=== PATIENT | female | born 1965 | race Caucasian/White ===

== ENCOUNTER 2017-03-29 00:57 | Inpatient (IN) ==
[2017-03-29 01:40] LABS: Basophils # 0.1 K/mcL (0.0-0.2); Basophils % 0.4 %; Eosinophils # 0.1 K/mcL (0.0-0.6); Eosinophils % 0.9 %; Hematocrit 44.7 % (35.3-44.9); Hemoglobin 14.6 g/dL (11.5-15.4); Immature Granulocytes % 0.4 % (0-4); Lymphocytes # 2.6 K/mcL (0.6-4.6); Lymphocytes % 19.3 %; Mean Corpuscular HGB Conc 32.7 g/dL (31.6-35.5); Mean Corpuscular Hemoglobin 27.9 pg (28.0-33.3); Mean Corpuscular Volume 85.3 fL (83.0-100.0); Mean Platelet Volume 10.4 fL (9.4-12.4); Monocytes # 0.9 K/mcL (0.0-1.3); Monocytes % 6.8 %; Neutrophils # 9.7 K/mcL (1.6-8.9); Platelet Count 319 K/mcL (140-400); Red Blood Count 5.24 M/mcL (3.82-4.97); Red Cell Distribution Width 13.2 % (11.5-14.5); Segmented Neutrophils % 72.2 %
[2017-03-29 01:53] LABS: Bilirubin,Urine Negative (Negative); Blood,Urine Negative (Negative); Clarity,Urine Clear (Clear); Color,Urine Yellow (Yellow); Glucose,Urine (UA) Normal (Normal); Ketones,Urine Negative (Negative); Leukocyte Esterase,Urine Negative (Negative); Nitrite,Urine Negative (Negative); Protein,Urine Trace mg/dL (Neg-Trace); Specific Gravity,Urine 1.022 (1.010-1.025); Urobilinogen,Urine Normal (Normal)
--- NOTE | 2017-03-29 01:55 | Emergency Department Note ---
Disposition Clinical Impression: Partial small bowel obstruction Abdominal pain Qualifiers: Abdominal location: left upper quadrant Qualified Code(s): R10.12 - Left upper quadrant pain Disposition: Admitted As Inpatient Condition: Fair Time of Disposition: 06:32 Abdominal Pain HPI - General Chief Complaint: ED Abdominal Pain Stated Complaint: LUQ Pain Time Seen by Provider: 03/29/17 01:44 Source: patient Nursing Notes Reviewed: Yes Vital Signs Reviewed: Yes - History of Present Illness HPI Narrative: 51-year-old female complains of acute onset of severe abdominal pain left upper quadrant without radiation. Patient also complains of left-sided chest pain as well with nausea and vomiting. Patient states that the pain started 3 hours ago. She has never had pain like this before. Pain is constant at 10/10. Patient denies prior [place], patient admits to hypertension, and diabetes. Surgical history for hysterectomy and . Pain Scale: 10 - Related Data Previous Rx's Medication Instructions Recorded Azithromycin [Zithromax] 250 mg PO DAILY #6 tablet 02/07/16 Azithromycin [Azithromycin 6-Tab 250 mg PO PER PKG DI #6 tab 02/02/17 Pack] GuaiFENesin/Dextromethorphan 5 ml PO Q6HR PRN #120 syrup 02/02/17 [Robitussin/DM] Loratadine [Allergy Relief] 10 mg PO DAILY #30 tablet 02/02/17 Allergies Allergy/AdvReac Type Severity Reaction Status Date / Time Penicillins [PCN] Allergy Difficulty Verified 02/18/15 10:56 Breathing All systems ED: reviewed and negative except as stated. Review of Systems: As Per HPI Constitutional: Denies: fever Cardiovascular: Reports: chest pain Gastrointestinal: Reports: abdominal pain, nausea, vomiting. Denies: diarrhea Genitourinary: Denies: urgency Musculoskeletal: Denies: back pain Abdominal Pain PMH - Past Medical History Medical history: Reports: diabetes, hypertension Female Surgical History: Reports: , hysterectomy, Tonsillectomy - Social History Smoking status: Never smoker Alcohol use: Reports: none Drug use: Reports: none Physical Exam Vital Signs Temperature 98.9 F 03/29/17 01:07 Pulse Rate 72 03/29/17 01:07 Respiratory Rate 24 03/29/17 01:07 Blood Pressure 184/105 03/29/17 01:07 O2 Sat by Pulse Oximetry 99 03/29/17 01:07 Temperature 98.9 F 03/29/17 01:07 Pulse Rate 72 03/29/17 01:07 Respiratory Rate 24 03/29/17 01:07 Blood Pressure 184/105 03/29/17 01:07 O2 Sat by Pulse Oximetry 99 03/29/17 01:07 Oxygen Delivery Oxygen Delivery Room Air CONSTITUTIONAL: Well-appearing; well-nourished; A&O X 3 in acute distress secondary to pain. Patient is tachypnea And hypertensive at 184/105 HEAD: Normocephalic; atraumatic EYES: PERRL, no scleral icterus NOSE: The nose is normal in appearance without rhinorrhea NECK: No JVD or distended neck veins RESP: Normal chest excursion with respiration; breath sounds clear and equal bilaterally; no wheezes, rhonchi, or rales CARD: Regular rhythm, without murmurs, rub or gallop ABD: Non-distended; tender to palpation in left upper and left lower quadrant, soft, without rigidity, rebound or guarding,no pulsatile mass CHEST: No pain with palpation SKIN: Normal for age and race; warm and dry without diaphoresis ; no apparent lesions EXTREMITIES: Pulses are 2 plus and equal times 4 extremities, no peripheral edema or calf muscle pain - General Limitations: no limitations General appearance: alert, in no apparent distress Course - Reevaluation(s) Reevaluation #1: Urinalysis clean and free of bacteria no UTI. Zofran ordered for nausea and 25 g of fentanyl order for pain. Time: 01:58 Reevaluation #2: Patient received a payments 15 minutes ago but states she has no budge in her pain symptoms. Ordered 50 g of fentanyl IV for her pain. Patient states her nausea is under control. Patient just got back from CT Time: 02:41 Reevaluation #3: CT results show partial small bowel obstruction Time: 03:25 Additional Reevaluation(s): Patient states pain is increased again. 100 g of fentanyl ordered. Nausea still on the control. Patient is updated on the current status of small bowel obstruction and accepts admission - Consultations Consultation #1: Consult made to Dr. Hanna general surgery. He recommends NG tube for bowel decompression. Orders placed for NG tube Time: 04:06 Vital Signs Temperature 98.9 F 03/29/17 01:07 Pulse Rate 72 03/29/17 01:07 Respiratory Rate 24 02/10/18 01:07 Blood Pressure 184/105 03/29/17 01:07 O2 Sat by Pulse Oximetry 99 03/29/17 01:07 Temperature 97.9 F 03/29/17 05:01 Pulse Rate 58 03/29/17 05:01 Respiratory Rate 14 03/29/17 05:01 Blood Pressure 158/88 03/29/17 05:01 O2 Sat by Pulse Oximetry 99 03/29/17 05:01 Oxygen Delivery Oxygen Delivery Room Air Abdominal Pain - MDM Narrative Medical decision making narrative: Acute onset of left upper quadrant abdominal pain and left-sided chest pain with history of diabetes and hypertension concerning for possible ACS/WA, pneumonia, kidney stones, pancreatitis, bowel obstruction, pyelonephritis, diverticulitis Patient's lab work was remarkable only for an elevation of her white count at 13.5. CT scan of abdomen and pelvis shows partial small bowel obstruction in the mid abdomen with distal loops decompressed per radiology. Gen. surgery was consulted. Dr. Hanna recommended NG tube. We tried to place NG tube but patient refused. Patient was advised of the necessity of having NG tube to decompress her bowel. She is also told that she is at risk for full obstruction and rupture of her bowel. Patient still refuses NG tube. Patient is admitted to medicine for further evaluation. - Medical Records Medical records reviewed: Yes I reviewed the patient's medical records. - Lab Data Lab results reviewed: Yes I reviewed the patient's lab results. Lab results narrative: Short CBC 03/29/17 Range/Units 01:34 WBC 13.5 H (4.3-11.1) K/mcL Hgb 14.6 (11.5-15.4) g/dL Hct 44.7 (35.3-44.9) % Plt Count 319 (140-400) K/mcL Neutrophils # 9.7 H (1.6-8.9) K/mcL BMP 03/29/17 Range/Units 01:34 Sodium 135 L (136-145) mEq/L Potassium 3.9 (3.5-5.1) mEq/L Chloride 102 (98-107) mEq/L Carbon Dioxide 25 (23-29) mEq/L BUN 16 (6-20) mg/dL Creatinine 0.78 (0.60-1.20) mg/dL Glucose 121 H (70-105) mg/dL Calcium 9.1 (8.6-10.3) mg/dL Cardiac Enzymes 03/29/17 Range/Units 01:38 Troponin I < 0.03 (< 0.04) ng/mL Liver Function 03/29/17 Range/Units 01:34 Total Bilirubin 0.3 (0.3-1.0) mg/dL Direct Bilirubin 0.1 (0.0-0.2) mg/dL AST 14 (13-39) Units/L ALT 12 (7-52) Units/L Alkaline Phosphatase 106 H (34-104) Units/L Albumin 4.0 (3.5-5.7) g/dL Urine 03/29/17 Range/Units 01:48 Urine Color Yellow (Yellow) Urine Clarity Clear (Clear) Urine pH 7.0 (5.0-8.0) pH Units Ur Specific Melvin 1.022 (1.010-1.025) Urine Protein Trace (Neg-Trace) mg/dL Urine Glucose (UA) Normal (Normal) mg/dL Result diagrams: 03/29/17 01:34 03/29/17 01:34 Lab Results 03/29/17 03/29/17 03/29/17 Range/Units 01:34 01:34 01:34 WBC 13.5 H (4.3-11.1) K/mcL RBC 5.24 H (3.82-4.97) M/mcL Hgb 14.6 (11.5-15.4) g/dL Hct 44.7 (35.3-44.9) % MCV 85.3 (83.0-100.0) fL MCH 27.9 L (28.0-33.3) pg MCHC 32.7 (31.6-35.5) g/dL RDW 13.2 (11.5-14.5) % Plt Count 319 (140-400) K/mcL MPV 10.4 (9.4-12.4) fL Immature Gran % 0.4 (0-4) % Seg Neutrophils % 72.2 % Lymphocytes % 19.3 % Monocytes % 6.8 % Eosinophils % 0.9 % Basophils % 0.4 % Neutrophils # 9.7 H (1.6-8.9) K/mcL Lymphocytes # 2.6 (0.6-4.6) K/mcL Monocytes # 0.9 (0.0-1.3) K/mcL Eosinophils # 0.1 (0.0-0.6) K/mcL Basophils # 0.1 (0.0-0.2) K/mcL Sodium 135 L (136-145) mEq/L Potassium 3.9 (3.5-5.1) mEq/L Chloride 102 (98-107) mEq/L Carbon Dioxide 25 (23-29) mEq/L BUN 16 (6-20) mg/dL Creatinine 0.78 (0.60-1.20) mg/dL Est GFR ( Amer) > 60 (> 60) Est GFR (Non-Af Amer) > 60 (> 60) BUN/Creatinine Ratio 21 (6-26) Glucose 121 H (70-105) mg/dL Calculated Osmolality 282 (280-300) Calcium 9.1 (8.6-10.3) mg/dL Total Bilirubin 0.3 (0.3-1.0) mg/dL Direct Bilirubin 0.1 (0.0-0.2) mg/dL Indirect Bilirubin 0.2 (0.0-1.2) mg/dL AST 14 (13-39) Units/L ALT 12 (7-52) Units/L Alkaline Phosphatase 106 H (34-104) Units/L Troponin I (< 0.04) ng/mL Serum Total Protein 6.8 (6.4-8.9) g/dL Albumin 4.0 (3.5-5.7) g/dL Globulin 2.8 (2.4-3.5) g/dL Albumin/Globulin Ratio 1.4 (1.1-2.2) Amylase 45 (29-103) Units/L Lipase 48 (11-82) Units/L Urine Color (Yellow) Urine Clarity (Clear) Urine pH (5.0-8.0) pH Units Ur Specific Melvin (1.010-1.025) Urine Protein (Neg-Trace) mg/dL Urine Glucose (UA) (Normal) mg/dL Urine Ketones (Negative) mg/dL Urine Blood (Negative) Urine Nitrite (Negative) Urine Bilirubin (Negative) Urine Urobilinogen (Normal) mg/dL Ur Leukocyte Esterase (Negative) Ur Culture Indicated? (NO) 03/29/17 03/29/17 Range/Units 01:38 01:48 WBC (4.3-11.1) K/mcL RBC (3.82-4.97) M/mcL Hgb (11.5-15.4) g/dL Hct (35.3-44.9) % MCV (83.0-100.0) fL MCH (28.0-33.3) pg MCHC (31.6-35.5) g/dL RDW (11.5-14.5) % Plt Count (140-400) K/mcL MPV (9.4-12.4) fL Immature Gran % (0-4) % Seg Neutrophils % % Lymphocytes % % Monocytes % % Eosinophils % % Basophils % % Neutrophils # (1.6-8.9) K/mcL Lymphocytes # (0.6-4.6) K/mcL Monocytes # (0.0-1.3) K/mcL Eosinophils # (0.0-0.6) K/mcL Basophils # (0.0-0.2) K/mcL Sodium (136-145) mEq/L Potassium (3.5-5.1) mEq/L Chloride (98-107) mEq/L Carbon Dioxide (23-29) mEq/L BUN (6-20) mg/dL Creatinine (0.60-1.20) mg/dL Est GFR ( Amer) (> 60) Est GFR (Non-Af Amer) (> 60) BUN/Creatinine Ratio (6-26) Glucose (70-105) mg/dL Calculated Osmolality (280-300) Calcium (8.6-10.3) mg/dL Total Bilirubin (0.3-1.0) mg/dL Direct Bilirubin (0.0-0.2) mg/dL Indirect Bilirubin (0.0-1.2) mg/dL AST (13-39) Units/L ALT (7-52) Units/L Alkaline Phosphatase (34-104) Units/L Troponin I < 0.03 (< 0.04) ng/mL Serum Total Protein (6.4-8.9) g/dL Albumin (3.5-5.7) g/dL Globulin (2.4-3.5) g/dL Albumin/Globulin Ratio (1.1-2.2) Amylase (29-103) Units/L Lipase (11-82) Units/L Urine Color Yellow (Yellow) Urine Clarity Clear (Clear) Urine pH 7.0 (5.0-8.0) pH Units Ur Specific Melvin 1.022 (1.010-1.025) Urine Protein Trace (Neg-Trace) mg/dL Urine Glucose (UA) Normal (Normal) mg/dL Urine Ketones Negative (Negative) mg/dL Urine Blood Negative (Negative) Urine Nitrite Negative (Negative) Urine Bilirubin Negative (Negative) Urine Urobilinogen Normal (Normal) mg/dL Ur Leukocyte Esterase Negative (Negative) Ur Culture Indicated? NO (NO) - Radiology Data Radiology results reviewed: Yes I reviewed the patient's radiology results. Chest X-Ray 03/29/17 01:50 IMPRESSION: Low lung volume study without acute process. No significant change. D/ / Manolo Benedict MD / Manolo Benedict MD Interpreting Provider: Manolo Benedict MD Abdomen/Pelvis CT 03/29/17 02:18 IMPRESSION: Partial small bowel obstruction with transition in the mid abdomen and decompressed loops distally. D/ / Eliud Thompson MD / Eliud Thompson MD Interpreting Provider: Eliud Thompson MD - EKG Data EKG attestation: Yes I reviewed and interpreted this EKG. EKG results narrative: ABG taken 2017 and 0235 hours shows sinus bradycardia at a rate of [address] elevations or depressions leads, QRS widening or QT prolongation. Previous EKG for comparison dated 04/05/2012 shows a sinus rhythm at a rate of 72 bpm without any signs of ischemia. Attestation Statement - Attestation Attestation: I examined this patient and my medical decision-making was reviewed with the Resident Physician. I agree with the documented findings, disposition and treatment plan as described except to the extent set forth below. Patient presents to the ED with a chief complaint of abdominal pain. Onset just a few hours ago. Patient states she had a normal bowel movement this afternoon. Now she is having abdominal pain and nausea. No fever. On examination she has diffuse abdominal tenderness with guarding. Appears well- hydrated. Plan. Abdominal CT shows a partial small bowel obstruction. She is admitted to medicine with surgical consult. Heart Score - Score History: Slightly Suspicious Age: 45-65 Risk Factors: 1-2 risk factors Troponin: Less than normal limit
[2017-03-29] MEDS ORDERED: Ondansetron 4 MG/2 ML VIAL IVP PRN (01:58)
[2017-03-29] MEDS ORDERED: *HR* FentaNYL (PF) 100 MCG/2 ML VIAL IVP ONE ×5 (01:58→14:54)
[2017-03-29] MEDS ORDERED: 0.9 % Sodium Chloride 1,000 ML IVC ONE (01:58)
[2017-03-29 02:01] LABS: Alanine Aminotransferase 12 Units/L (7-52); Albumin/Globulin Ratio 1.4 (1.1-2.2); Alkaline Phosphatase 106 Units/L (34-104); Aspartate Amino Transferase 14 Units/L (13-39); BUN/Creatinine Ratio 21 (6-26); Bilirubin,Direct 0.1 mg/dL (0.0-0.2); Bilirubin,Indirect 0.2 mg/dL (0.0-1.2); Bilirubin,Total 0.3 mg/dL (0.3-1.0); Blood Urea Nitrogen 16 mg/dL (6-20); Calcium 9.1 mg/dL (8.6-10.3); Carbon Dioxide 25 mEq/L (23-29); Chloride 102 mEq/L (98-107); Globulin 2.8 g/dL (2.4-3.5); Glucose 121 mg/dL (70-105); Lipase 48 Units/L (11-82); Osmolality,Calculated 282 (280-300); Potassium 3.9 mEq/L (3.5-5.1); Sodium 135 mEq/L (136-145); Total Protein 6.8 g/dL (6.4-8.9); eGFR For African Americans > 60 (> 60); eGFR For Non-African Americans > 60 (> 60)
[2017-03-29] MEDS ORDERED: *HR* FentaNYL (PF) 100 MCG/2 ML VIAL IVP PRN (05:18)
[2017-03-29] MEDS ORDERED: *HR* Promethazine 25 MG/ML VIAL IVP PRN (05:19)
[2017-03-29] MEDS: D5% in 0.9% NACL 1,000 ML IVC SCH ×3 (05:33→21:42)
[2017-03-29] MEDS: Ondansetron 4 MG/2 ML VIAL IVP PRN ×2 (05:34→10:23)
[2017-03-29] MEDS ORDERED: *HR* OxyCODONE Immed Rel 5 MG TABLET PO PRN (08:18)
[2017-03-29] MEDS ORDERED: traMADol 50 MG TABLET PO PRN (08:18)
[2017-03-29] MEDS ORDERED: Naloxone 0.4 MG/ML INJ IVP PRN ×2 (08:18→14:53)
[2017-03-29] MEDS ORDERED: Acetaminophen 325 MG TABLET PO PRN (08:18)
[2017-03-29] MEDS ORDERED: Chloraseptic Spray 177 ML BOTTLE MM PRN (10:04)
[2017-03-29] MEDS ORDERED: Tetracaine/Benzocaine/Butamben 200MG/SPRAY (100SPY/BOT) MM ONE (10:13)
--- NOTE | 2017-03-29 10:14 | General Surgery Consult Note ---
Date of Encounter: 03/29/17 Time of Encounter: 10:10 History of Present Illness Consult date: 03/29/17 Reason for consult: abdominal pain History of present illness: 51-year-old female presents to the ER with abdominal pain nausea vomiting. She reports her pain was 10 out of 10 upon presentation. She underwent evaluation by CT scan and was identified as small bowel obstruction. She reports no flatus. She does report having 2 C-sections and hysterectomy in the past. She admits to some appetite. However she also admits that her abdominal pain is severe in nature. This abdominal pain started over the last 24 hours. Past Med Surg Social Fam HX - Past Medical History Attestation: Yes The following information was validated with the patient. Medical history: diabetes, hypertension - Past Surgical History Surgical History: , hysterectomy, FEMI/BSO - Social History Smoking Status: Never smoker Smokeless Tobacco Status: No Alcohol use: none Drug use: none Medications and Allergies Lisinopril [Zestril] 5 mg PO DAILY 03/29/17 [History] 3 Allergy/AdvReac Type Severity Reaction Status Date / Time Penicillins [PCN] Allergy Difficulty Verified 02/18/15 10:56 Breathing Review of Systems All systems PM: reviewed and no additional remarkable complaints except as stated All systems PM: A 10-system review of systems was performed and is negative for pertinent findings except as documented above in the HPI. General Surgery Exam Initial Vital Signs Temp Pulse Resp BP Pulse Ox 98.9 F 72 24 184/105 99 03/29/17 01:07 03/29/17 01:07 03/29/17 01:07 03/29/17 01:07 03/29/17 01:07 - General physical appearance well nourished, no distress - Eyes PERRL - ENT normal nares, normal mucosa - Neck trachea midline - Respiratory normal respiratory effort, clear to percussion - Cardiovascular Cardiovascular exam: Present: RRR - Abdomen Abdomen general surgery: Present: soft, non tender - Integumentary Integumentary general surgery: Present: warm and dry, no abnormal pigmentation - Neurologic Present: CN 2-12 grossly intact, normal sensation - Musculoskeletal Present: normal gait - Psychiatric Psychiatric general surgery: Present: A&Ox3, appropriate Exam Initial Vital Signs Temp Pulse Resp BP Pulse Ox 98.9 F 72 24 184/105 99 03/29/17 01:07 03/29/17 01:07 03/29/17 01:07 03/29/17 01:07 03/29/17 01:07 Results - Labs 03/29/17 01:34 03/29/17 01:34 Abnormal lab results WBC 13.5 K/mcL (4.3-11.1) H 03/29/17 01:34 RBC 5.24 M/mcL (3.82-4.97) H 03/29/17 01:34 MCH 27.9 pg (28.0-33.3) L 03/29/17 01:34 Neutrophils # 9.7 K/mcL (1.6-8.9) H 03/29/17 01:34 Sodium 135 mEq/L (136-145) L 03/29/17 01:34 Glucose 121 mg/dL (70-105) H 03/29/17 01:34 Alkaline Phosphatase 106 Units/L (34-104) H 03/29/17 01:34 All other labs normal. Consult Discharge Plan - Plan Referrals: Carlos Bullock MD [Primary Care Provider] -
--- NOTE | 2017-03-29 11:41 | Internal Med History&Physical ---
Date of Encounter: 03/29/17 Time of Encounter: 10:55 Assessment and Plan (1) Partial small bowel obstruction Current visit: Yes Status: Acute She refused NG tube placement despite encouragement by this physician, the surgeon, and ER MD Bowel rest Surgery eval, consult placed and called per ER NPO Dextrose in saline with 125 mL per hour for now. Pain control, patient insists fentanyl wasn't working, that oxycodone is what works She has extreme anxiety, reassured Continue to monitor. (2) Diabetes Current visit: Yes Status: Chronic Sliding scale Qualifiers: Diabetes mellitus type: type 2 Diabetes mellitus complication status: without complication Diabetes mellitus terminal operator insulin use: without terminal operator use Qualified Code(s): E11.9 - Type 2 diabetes mellitus without complications (3) Hypertension Current visit: Yes Status: Chronic Hydralazine prn, hold home meds Qualifiers: Hypertension type: essential hypertension Qualified Code(s): I10 - Essential (primary) hypertension Internal Medicine - H&P: HPI Chief complaint: Abdominal pain. Admitted From: Home Plans for Post Hospital Care: Home History of present illness: Ms. Rojas is a 51 year old female with a history of hypertension and diet- controlled diabetes mellitus. She presented to the emergency room with complaints of left lower quadrant abdominal pain, nausea and vomiting. On presentation. We will set the patient and was 10 out of 10. The patient is nonradiating. She reports she has not been having bowel movements. Asteatosis in the past 2 days. She denies fever or chills. She denies chest pain or shortness of breath. She has had FEMI/ARLETH as well as 2 sections in the past The patient seems to be extremely anxious, and reports that her father from bowel obstruction. She has persistently refused NG tube placement as recommended in the ER, and by the surgeon. Imaging in the ER revealed a partial small bowel obstruction. CBC revealed leukcytosis with left shift, chemistry and urinalysis is unremarkable. Lactate is normal. Troponin negative 2. Past Med Surg Social Fam HX - Past Medical History Medical history: diabetes, hypertension - Past Surgical History Surgical History: , hysterectomy, FEMI/BSO - Social History Smoking Status: Never smoker Smokeless Tobacco Status: No Alcohol use: none Drug use: none Internal Medicine - H&P: Meds Lisinopril [Zestril] 5 mg PO DAILY 03/29/17 [History] 3 Allergy/AdvReac Type Severity Reaction Status Date / Time Penicillins [PCN] Allergy Difficulty Verified 02/18/15 10:56 Breathing All Systems PM: A 10-system review of systems was performed and is negative for pertinent findings except as documented above in the HPI. - Constitutional Constitutional: no chills, no fever(s), no night sweats - EENT Eyes: no change in vision, no discharge, no pain, no photophobia Ears: no ear discharge, no ear pain, no tinnitus Nose, mouth and throat: no dysphagia, no nasal discharge, no neck pain, no sore throat - Cardiovascular Cardiovascular ROS IM: no chest pain, no diaphoresis, no dyspnea, no lightheadedness, no palpitations, no syncope - Respiratory Respiratory: no cough, no dyspnea, no wheezing, no excessive phlegm production - Gastrointestinal Gastrointestinal: as per HPI - Genitourinary Genitourinary: no change in urinary stream, no dysuria, no flank pain, no hematuria - Musculoskeletal Musculoskeletal ROS IM: no numbness, no tingling - Integumentary Integumentary IM: no rash, no unusual bruising - Neurological Neurological ROS: no confusion, no convulsions, no focal weakness, no numbness, no tingling, no tremor(s) - Hematologic/Lymphatic Hematologic/Lymphatic: no easy bruising - Constitutional Vitals: Temp Pulse Resp BP Pulse Ox 98.2 F 66 16 168/110 96 03/29/17 11:26 03/29/17 11:26 03/29/17 11:26 03/29/17 11:26 03/29/17 11:26 General appearance: Present: mild distress, A&O X 3 - Head Head exam: Present: atraumatic, normocephalic - Eye Eye exam: Present: PERRL, conjuntiva pink, sclera anicteric Pupils: Present: PERRL - Neck Neck exam general surgery: Present: supple, trachea midline. Absent: lymphadenopathy - Respiratory Respiratory exam: Present: CTAB. Absent: accessory muscle use, rales, rhonchi, wheezes - Cardiovascular Cardiovascular exam: Present: RRR, +S1, +S2. Absent: diastolic murmur, gallop, rubs, systolic murmur - GI/Abdominal GI/Abdominal exam: Present: diminished bowel sounds, soft, tenderness. Absent: guarding, rebound - Extremities Exam Extremities exam: Present: warm, radial pulses palpable and symmetrical. Absent : calf tenderness, cyanotic, pedal edema - Neurological Exam Neurological exam: Present: alert, CN II-XII intact, oriented X3, no focal deficits. Absent: pronater drift, facial droop, speech deficit - Skin Skin exam: Present: dry, intact Internal Med - H&P Results - Labs CBC & Chem 7: 03/29/17 01:34 03/29/17 01:34 Labs: Cardiac Enzymes 03/29/17 Range/Units 09:09 Troponin I < 0.03 (< 0.04) ng/mL
[2017-03-29] MEDS ORDERED: *HR* Dextrose 50 % in Water (Syg) 50 ML SYRINGE IVP PRN (11:43)
[2017-03-29] MEDS ORDERED: Dextrose Gel 15 GM/37.5 ML TUBE PO PRN ×2 (11:43)
[2017-03-29] MEDS ORDERED: D5% in Water 1,000 ML IVC PRN (11:43)
[2017-03-29] MEDS: Insulin LISPRO 300 UNITS/3 ML VIAL SQ SCH ×2 (13:57→17:32)
[2017-03-29] MEDS ORDERED: OXYCODONE Oral CONC 10 MG/0.5 ML ORAL.SYG SL PRN (14:53)
[2017-03-29] MEDS: *HR* Heparin 5,000 UNIT/ML VIAL SQ SCH ×2 (15:08→21:43)
[2017-03-29] MEDS ORDERED: Acetaminophen 650 MG RECTAL SUPP RC ONE (17:54)
[2017-03-29] MEDS: OXYCODONE Oral CONC 10 MG/0.5 ML ORAL.SYG SL PRN ×2 (19:43→23:59)
[2017-03-30] MEDS: Insulin LISPRO 300 UNITS/3 ML VIAL SQ SCH ×5 (00:02→23:52)
[2017-03-30 05:21] LABS: Basophils % 0.2 %; Eosinophils % 0.2 %; Hemoglobin 13.4 g/dL (11.5-15.4); Immature Granulocytes % 0.4 % (0-4); Lymphocytes # 1.8 K/mcL (0.6-4.6); Lymphocytes % 14.2 %; Mean Corpuscular HGB Conc 31.9 g/dL (31.6-35.5); Mean Corpuscular Hemoglobin 27.7 pg (28.0-33.3); Mean Platelet Volume 10.4 fL (9.4-12.4); Monocytes # 0.9 K/mcL (0.0-1.3); Neutrophils # 9.6 K/mcL (1.6-8.9); Platelet Count 294 K/mcL (140-400); Red Blood Count 4.83 M/mcL (3.82-4.97); Red Cell Distribution Width 13.7 % (11.5-14.5)
[2017-03-30] MEDS: *HR* Heparin 5,000 UNIT/ML VIAL SQ SCH ×3 (05:34→23:04)
[2017-03-30] MEDS: OXYCODONE Oral CONC 10 MG/0.5 ML ORAL.SYG SL PRN ×3 (05:35→23:29)
[2017-03-30] MEDS: D5% in 0.9% NACL 1,000 ML IVC SCH ×2 (05:36→23:51)
[2017-03-30 05:42] LABS: BUN/Creatinine Ratio 16 (6-26); Blood Urea Nitrogen 12 mg/dL (6-20); Calcium 8.2 mg/dL (8.6-10.3); Carbon Dioxide 26 mEq/L (23-29); Chloride 110 mEq/L (98-107); Glucose 143 mg/dL (70-105); Osmolality,Calculated 294 (280-300); Potassium 3.6 mEq/L (3.5-5.1); Sodium 141 mEq/L (136-145); eGFR For African Americans > 60 (> 60); eGFR For Non-African Americans > 60 (> 60)
[2017-03-30] MEDS ORDERED: *HR* FentaNYL (PF) 100 MCG/2 ML VIAL IVP ONE (10:20)
--- NOTE | 2017-03-30 12:25 | Internal Med Progress Note ---
Date of Encounter: 03/30/17 Time of Encounter: 14:36 - Assessment and plan (1) Partial small bowel obstruction Current Visit: Yes Status: Acute Assessment and plan: continue conservative care with IVF, Suction, pain control, NPO. Surgery is following (2) Diabetes Current Visit: Yes Status: Chronic Assessment and plan: Not on meds at home, continue to monitor sliding scale prn Qualifiers: Diabetes mellitus type: type 2 Diabetes mellitus complication status: without complication Diabetes mellitus local intermodal truck driver insulin use: without local intermodal truck driver use Qualified Code(s): E11.9 - Type 2 diabetes mellitus without complications (3) Hypertension Current Visit: Yes Status: Chronic Assessment and plan: hydralazine prn, hold home meds Qualifiers: Hypertension type: essential hypertension Qualified Code(s): I10 - Essential (primary) hypertension - Subjective Interval history: Seen and evaluated at bedside Still complaining of pain but improved from prior Passing flatus, no BM yet Leukocytosis is improving - Constitutional Vitals: Temp Pulse Resp BP Pulse Ox 98.4 F 102 16 176/98 93 03/30/17 11:21 03/30/17 11:21 03/30/17 11:21 03/30/17 11:21 03/30/17 11:21 General appearance: Present: A&O X 3, morbidly obese, no acute distress - Head Head exam: Present: atraumatic, normocephalic - Eye Eye exam: Present: PERRL, conjuntiva pink, sclera anicteric Pupils: Present: PERRL - Neck Neck exam general surgery: Present: supple, trachea midline. Absent: lymphadenopathy - Respiratory Respiratory exam: Present: CTAB. Absent: accessory muscle use, rales, rhonchi, wheezes - Cardiovascular Cardiovascular exam: Present: RRR, +S1, +S2. Absent: diastolic murmur, gallop, rubs, systolic murmur - GI/Abdominal GI/Abdominal exam: Present: hypoactive bowel sounds, soft, tenderness - Extremities Exam Extremities exam: Present: warm, radial pulses palpable and symmetrical. Absent : calf tenderness, cyanotic, pedal edema - Neurological Exam Neurological exam: Present: alert, CN II-XII intact, oriented X3, no focal deficits. Absent: pronater drift, facial droop, speech deficit - Skin Skin exam: Present: dry, intact Internal Medicine: Result - Labs CBC & Chem 7: 02/11/18 04:53 03/30/17 04:53 Labs: Short CBC 03/30/17 Range/Units 04:53 WBC 12.3 H (4.3-11.1) K/mcL Hgb 13.4 (11.5-15.4) g/dL Hct 42.0 (35.3-44.9) % Plt Count 294 (140-400) K/mcL Neutrophils # 9.6 H (1.6-8.9) K/mcL BMP 03/30/17 04:53 Sodium 141 Potassium 3.6 Chloride 110 H Carbon Dioxide 26 BUN 12 Creatinine 0.73 Glucose 143 H Calcium 8.2 L - Impressions Impressions KUB X-Ray 03/29/17 14:40 IMPRESSION: NG tube is present with distal tip in the gastric body and side port at the gastroesophageal junction. Recommend advancing before use. D/ / 03/29/2017 15:12:16 Bashir Webster MD / abby Interpreting Provider: Bashir Webster MD X-Ray 03/29/17 17:08 IMPRESSION: Tip of the enteric tube in the gastric fundus and side-port near the gastroesophageal junction. Consider advancement. D/ / Iftikhar Allen MD / Iftikhar Allen MD Interpreting Provider: Iftikhar Allen MD Consult Discharge Plan - Plan Referrals: Carlos Bullock MD [Primary Care Provider] -
[2017-03-30] MEDS: Acetaminophen 650 MG RECTAL SUPP RC PRN ×2 (14:42→21:00)
--- NOTE | 2017-03-30 18:22 | General Surgery Progress Note ---
Date of Encounter: 03/30/17 Time of Encounter: 14:15 - Assessment and Plan (1) Partial small bowel obstruction Current Visit: Yes Status: Acute WIll check a SBFT in the am. Subjective Narrative: Complains of NG. She does report better pain control with the tylenol suppository. Objective Vital Signs - Last 8 Hours Temp Pulse Resp BP Pulse Ox 03/30/17 14:48 97.8 F 82 14 177/108 94 03/30/17 11:21 98.4 F 102 16 176/98 93 Intake and Output 03/30/17 03/30/17 03/30/17 07:59 15:59 23:59 Intake Total 1120 / 1120 0 / 0 Output Total 500 / 500 200 / 200 Balance 620 / 620 -200 / -200 0 / 0 Intake: IV Fluids 1000 / 1000 D5% And 0.9% Nacl 1000 Ml 1,000 1000 / 1000 ML @ 125 mls/hr IVC .Q8H [facility] Rx#:[id number] Oral 120 / 120 0 / 0 Output: Urine 300 / 300 200 / 200 Gastric Drainage 200 / 200 Other: Meal npo NPO Percent of Meal Consumed 0% Blood Glucose* 122 120 115 - General physical appearance well nourished, no distress - Eyes PERRL - Neck Neck exam: trachea midline - Respiratory normal expansion, normal respiratory effort - Cardiovascular Cardiovascular exam: Present: RRR - Abdomen Abdomen: Present: bowel sounds present, soft, tender - Neurologic CN 2-12 grossly intact, normal sensation - Labs 03/30/17 04:53 03/30/17 04:53 Diabetes panel 03/30/17 Range/Units 04:53 Sodium 141 (136-145) mEq/L Potassium 3.6 (3.5-5.1) mEq/L Chloride 110 H (98-107) mEq/L Carbon Dioxide 26 (23-29) mEq/L BUN 12 (6-20) mg/dL Creatinine 0.73 (0.60-1.20) mg/dL Glucose 143 H (70-105) mg/dL Calcium 8.2 L (8.6-10.3) mg/dL Calcium panel 03/30/17 Range/Units 04:53 Calcium 8.2 L (8.6-10.3) mg/dL Pituitary panel 03/30/17 Range/Units 04:53 Sodium 141 (136-145) mEq/L Potassium 3.6 (3.5-5.1) mEq/L Chloride 110 H (98-107) mEq/L Carbon Dioxide 26 (23-29) mEq/L BUN 12 (6-20) mg/dL Creatinine 0.73 (0.60-1.20) mg/dL Glucose 143 H (70-105) mg/dL Calcium 8.2 L (8.6-10.3) mg/dL Adrenal panel 03/30/17 Range/Units 04:53 Sodium 141 (136-145) mEq/L Potassium 3.6 (3.5-5.1) mEq/L Chloride 110 H (98-107) mEq/L Carbon Dioxide 26 (23-29) mEq/L BUN 12 (6-20) mg/dL Creatinine 0.73 (0.60-1.20) mg/dL Glucose 143 H (70-105) mg/dL Calcium 8.2 L (8.6-10.3) mg/dL Consult Discharge Plan - Plan Referrals: Carlos Bullock MD [Primary Care Provider] -
[2017-03-31] MEDS: D5% in 0.9% NACL 1,000 ML IVC SCH ×3 (00:14→23:48)
[2017-03-31] MEDS: Acetaminophen 650 MG RECTAL SUPP RC PRN ×2 (04:30→21:24)
[2017-03-31 04:36] LABS: Basophils % 0.3 %; Eosinophils # 0.1 K/mcL (0.0-0.6); Eosinophils % 0.5 %; Hematocrit 39.3 % (35.3-44.9); Hemoglobin 12.6 g/dL (11.5-15.4); Lymphocytes # 2.7 K/mcL (0.6-4.6); Lymphocytes % 21.4 %; Mean Corpuscular HGB Conc 32.1 g/dL (31.6-35.5); Mean Corpuscular Hemoglobin 27.5 pg (28.0-33.3); Mean Corpuscular Volume 85.6 fL (83.0-100.0); Mean Platelet Volume 10.8 fL (9.4-12.4); Monocytes # 1.1 K/mcL (0.0-1.3); Monocytes % 8.6 %; Neutrophils # 8.5 K/mcL (1.6-8.9); Nucleated Red Blood Cells 0.3 /100 WBC (0); Platelet Count 261 K/mcL (140-400); Red Blood Count 4.59 M/mcL (3.82-4.97); Red Cell Distribution Width 13.5 % (11.5-14.5); Segmented Neutrophils % 68.2 %
[2017-03-31 04:53] LABS: BUN/Creatinine Ratio 17 (6-26); Blood Urea Nitrogen 10 mg/dL (6-20); Calcium 8.2 mg/dL (8.6-10.3); Carbon Dioxide 23 mEq/L (23-29); Chloride 111 mEq/L (98-107); Glucose 124 mg/dL (70-105); Osmolality,Calculated 290 (280-300); Potassium 3.1 mEq/L (3.5-5.1); Sodium 140 mEq/L (136-145); eGFR For African Americans > 60 (> 60); eGFR For Non-African Americans > 60 (> 60)
[2017-03-31] MEDS: Insulin LISPRO 300 UNITS/3 ML VIAL SQ SCH ×4 (05:45→23:46)
[2017-03-31] MEDS: *HR* Heparin 5,000 UNIT/ML VIAL SQ SCH ×3 (05:55→21:24)
--- NOTE | 2017-03-31 07:36 | Electrocardiograph Report ---
[address] [place], [place] [address] Test Date: 2017-03-29 Pat Name: Jenny Rojas Department: 102 Room: 3A32 Gender: F Lubrication Technician: : 1965 Requested By: Matt Black Order Number: [id number] Reading MD: Wayne Willett MD Measurements Intervals [place] Rate: 54 P: 14 LA: 170 QRS: 16 QRSD: 102 T: 26 QT: 458 QTc: 444 Interpretive Statements SINUS BRADYCARDIA Electronically Signed On 03-31-2017 7:34:30 EST by Wayne iWllett MD
[2017-03-31] MEDS: Ondansetron 4 MG/2 ML VIAL IVP PRN ×2 (08:32→14:23)
[2017-03-31] MEDS: OXYCODONE Oral CONC 10 MG/0.5 ML ORAL.SYG SL PRN ×2 (08:33→14:24)
--- NOTE | 2017-03-31 10:49 | General Surgery Progress Note ---
Date of Encounter: 03/31/17 Time of Encounter: 10:45 - Assessment and Plan (1) Abdominal pain Current Visit: Yes Status: Acute Per CT 03/29/2017 GI/Bowel: There are several proximal mildly dilated loops of small bowel with transition point in the mid abdomen and decompressed small bowel distally. Large bowel contents are present. IMPRESSION: Partial small bowel obstruction with transition in the mid abdomen and decompressed loops distally. Constipation vs partial SBO NG tube in place. Pt states she was vomiting around the NG. Imaging notes NG in the tip of the gastric fundus near GE junction. Needs advanced, but pt refuses. She has active bowel sounds at this time. She is not vomiting. Notably, she was in radiology for her small bowel follow-through and refused advancement of her NG tube. She then refused to drink the contrast since it could not be given pretty NG tube. Patient was brought back to her room. Patient was educated regarding the need for further testing in order to have any surgical recommendations. Reviewed with patient that if she continued to refuse the imaging, surgery has little to offer as far as recommendations and would sign off of the case. Pt stated she would consider drinking the contrast later today. Plan Serial abdominal exams Labs per primary team Complete recommended imaging Further recommendations/following of care after imaging Qualifiers: Abdominal location: generalized Qualified Code(s): R10.84 - Generalized abdominal pain Subjective Patient reports: still having pain, no flatus, no bowel movement, nausea, vomiting, afebrile Narrative: Received radiology call regarding patient is refusing to have NG advanced and is refusing to drink contrast because, "I have a migraine that started right after that nurse tried to advance my tube. I am not doing anything until someone takes care of my migraine." Objective Vital Signs - Last 8 Hours Temp Pulse Resp BP Pulse Ox 03/31/17 10:39 98.6 F 72 17 150/103 92 03/31/17 08:49 94 03/31/17 06:46 98.4 F 73 16 133/91 94 03/31/17 03:52 98.5 F 76 16 136/73 95 Intake and Output 03/30/17 03/31/17 03/31/17 23:59 07:59 15:59 Intake Total 0 / 0 0 / 0 1000 / 1000 Output Total 850 / 850 0 / 0 0 / 0 Balance -850 / -850 0 / 0 1000 / 1000 Intake: IV Fluids 1000 / 1000 D5% And 0.9% Nacl 1000 Ml 1,000 1000 / 1000 ML @ 125 mls/hr IVC .Q8H [facility] Rx#:[id number] Oral 0 / 0 0 / 0 0 / 0 Output: Urine 700 / 700 0 / 0 0 / 0 Gastric Drainage 150 / 150 Other: Meal NPO NPO Percent of Meal Consumed 0% Weight 119.612 kg Blood Glucose* 113 117 Patient Weight 03/31/17 23:59 Weight 119.612 kg - General physical appearance no distress, moderate pain (states moderate head pain) - Eyes PERRL, normal ocular movement - ENT normal nares (Right NG tube noted), normal mucosa, CN 2-12 grossly intact - Neck Neck exam: trachea midline, no lymphadectomy, no venous distension - Respiratory normal expansion, normal respiratory effort, clear to percussion - Cardiovascular Cardiovascular exam: Present: RRR, distant heart sounds - Abdomen Abdomen: Present: bowel sounds present, soft, tender Abdominal Tenderness: diffusely Hernia: none - Integumentary no growths - Neurologic CN 2-12 grossly intact, normal coordination, normal sensation - Musculoskeletal normal gait, normal posture - Psychiatric oriented to time, oriented to person, oriented to place, speech is normal, memory intact - Labs 03/31/17 04:09 03/31/17 04:09 Diabetes panel 03/31/17 Range/Units 04:09 Sodium 140 (136-145) mEq/L Potassium 3.1 L (3.5-5.1) mEq/L Chloride 111 H (98-107) mEq/L Carbon Dioxide 23 (23-29) mEq/L BUN 10 (6-20) mg/dL Creatinine 0.58 L (0.60-1.20) mg/dL Glucose 124 H (70-105) mg/dL Calcium 8.2 L (8.6-10.3) mg/dL Calcium panel 03/31/17 Range/Units 04:09 Calcium 8.2 L (8.6-10.3) mg/dL Pituitary panel 03/31/17 Range/Units 04:09 Sodium 140 (136-145) mEq/L Potassium 3.1 L (3.5-5.1) mEq/L Chloride 111 H (98-107) mEq/L Carbon Dioxide 23 (23-29) mEq/L BUN 10 (6-20) mg/dL Creatinine 0.58 L (0.60-1.20) mg/dL Glucose 124 H (70-105) mg/dL Calcium 8.2 L (8.6-10.3) mg/dL Adrenal panel 03/31/17 Range/Units 04:09 Sodium 140 (136-145) mEq/L Potassium 3.1 L (3.5-5.1) mEq/L Chloride 111 H (98-107) mEq/L Carbon Dioxide 23 (23-29) mEq/L BUN 10 (6-20) mg/dL Creatinine 0.58 L (0.60-1.20) mg/dL Glucose 124 H (70-105) mg/dL Calcium 8.2 L (8.6-10.3) mg/dL Consult Discharge Plan - Plan Referrals: Carlos Bullock MD [Primary Care Provider] -
[2017-03-31] MEDS ORDERED: OXYCODONE Oral CONC 10 MG/0.5 ML ORAL.SYG SL PRN (15:29)
--- NOTE | 2017-03-31 15:36 | Internal Med Progress Note ---
<Adrian Sabillon - Last Filed: 03/31/17 16:13> Date of Encounter: 03/31/17 Time of Encounter: 15:34 - Assessment and plan (1) Partial small bowel obstruction Current Visit: Yes Status: Acute Assessment and plan: Continue conservative care with IVF, suction, pain control, NPO. Surgery is following. Patient has NG tube placed, but tube is requires 7 cm of advancement which the patient is refusing. Patient also refused her SBFT study initially, however she agreed to the exam after further discussions. Will discuss NG tube advancement with patient after she returns from [facility]. (2) Diabetes Current Visit: Yes Status: Chronic Assessment and plan: Patient is not on medication at home for her diabetes will continue to monitor and sliding scale as needed. 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 Qualifiers: Hypertension type: essential hypertension Qualified Code(s): I10 - Essential (primary) hypertension - Subjective Interval history: The patient is a 51-year-old female she has a past medical history of hypertension and diet controlled diabetes she was initially seen in the emergency room for left lower quadrant pain associated with nausea and vomiting on March 292017. Imaging done in the emergency department revealed a partial small bowel obstruction. Labs revealed a leukocytosis with left shift and chemistry urinalysis were unremarkable, lactate was normal and her troponin was negative. The patient was admitted to our service in which she underwent continued conservative care with intravenous fluids, suction after NG tube placement, pain control and nothing by mouth and surgery was consulted. The NG tube was placed and it was noticed on x-ray that they required 7 cm of advancement, however the patient refused to allow her providers to advance the NG tube. The patient then initially refused a small bowel follow-through procedure by refusing to allow advancement NG tube and also declining to drink the fluid required for the study. After I spoke with the patient for a period of time she states that she be willing to drink a liquid required to do the small bowel follow-through. I discussed with the patient that after the study will discuss further her NG tube placement. Surgery is currently following on the patient, however the patient continues to refuse the NG tube or the small bowel follow-through study surgery will be signing off on the patient's case. I discussed the importance of these tests and procedures with the patient and with her current condition patient states she understands still is declining the best of the NG tube. She states that she is having a headache after initial advancement of the tube, and that is why she does not want to attempt advancment again. Will f/u with NG tube placement and SBFT study tomorrow. - Constitutional Vitals: Temp Pulse Resp BP Pulse Ox 98.2 F 75 18 163/105 93 03/31/17 15:11 03/31/17 15:11 03/31/17 15:11 03/31/17 15:11 03/31/17 15:11 General appearance: Present: A&O X 3, morbidly obese, no acute distress - Head Head exam: Present: atraumatic, normal inspection, normocephalic Additional comments: Patient has NG placed in right naris - Eye Eye exam: Present: EOMI, normal appearance, PERRL - ENT ENT exam: Present: mucous membranes dry - Neck Neck exam general surgery: Present: full ROM. Absent: tenderness - Respiratory Respiratory exam: Present: CTAB. Absent: wheezes, tachypnea - Cardiovascular Cardiovascular exam: Present: RRR, +S1, +S2 - GI/Abdominal GI/Abdominal exam: Present: distended, soft, tenderness. Absent: guarding, rebound, rigid Additional comments: mild diffuse tenderness. - Extremities Exam Extremities exam: Present: full ROM, normal inspection, warm - Back Exam Back exam: Present: normal inspection. Absent: CVA tenderness (L), CVA tenderness (R) - Psychiatric Psychiatric exam: Present: agitated, normal affect - Skin Skin exam: Present: intact, normal color, warm Internal Medicine: Result - Labs CBC & Chem 7: 03/31/17 04:09 03/31/17 04:09 Labs: Short CBC 03/31/17 Range/Units 04:09 WBC 12.5 H (4.3-11.1) K/mcL Hgb 12.6 (11.5-15.4) g/dL Hct 39.3 (35.3-44.9) % Plt Count 261 (140-400) K/mcL Neutrophils # 8.5 (1.6-8.9) K/mcL BMP 03/31/17 04:09 Sodium 140 Potassium 3.1 L Chloride 111 H Carbon Dioxide 23 BUN 10 Creatinine 0.58 L Glucose 124 H Calcium 8.2 L Consult Discharge Plan - Plan Referrals: Carlos Bullock MD [Primary Care Provider] - <Lamont Garrett - Last Filed: 03/31/17 18:04> Date of Encounter: 03/31/17 - Assessment and plan (1) Partial small bowel obstruction Current Visit: Yes Status: Acute (2) Diabetes Current Visit: Yes Status: Chronic Qualifiers: Diabetes mellitus type: type 2 Diabetes mellitus complication status: without complication 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 Qualified Code(s): E11.9 - Type 2 diabetes mellitus without complications (3) Hypertension Current Visit: Yes Status: Chronic Qualifiers: Hypertension type: essential hypertension Qualified Code(s): I10 - Essential (primary) hypertension - Constitutional Vitals: Temp Pulse Resp BP Pulse Ox 98.2 F 75 18 163/105 93 03/31/17 15:11 03/31/17 15:11 03/31/17 15:11 03/31/17 15:11 03/31/17 15:11 Internal Medicine: Result - Labs CBC & Chem 7: 03/31/17 04:09 03/31/17 04:09 Labs: Short CBC 03/31/17 Range/Units 04:09 WBC 12.5 H (4.3-11.1) K/mcL Hgb 12.6 (11.5-15.4) g/dL Hct 39.3 (35.3-44.9) % Plt Count 261 (140-400) K/mcL Neutrophils # 8.5 (1.6-8.9) K/mcL BMP 03/31/17 04:09 Sodium 140 Potassium 3.1 L Chloride 111 H Carbon Dioxide 23 BUN 10 Creatinine 0.58 L Glucose 124 H Calcium 8.2 L - Impressions Impressions Small Bowel X-Ray 03/31/17 07:30 IMPRESSION: The above findings are compatible with a mid to distal partial small bowel obstruction. There is no evidence of a high-grade obstruction as contrast reaches the colon by 3 hr 20 minutes. Please note the study was technically limited as the patient would not allow repositioning of the NG tube and would only drink a small amount of contrast for the study. D/ / Fadi Nguyen MD / Fadi Nguyen MD Interpreting Provider: Fadi Nguyen MD - Attending Attestation seen agree with plan follow imaging reports rest as in resident physician's documentation
[2017-04-01] MEDS: D5% in 0.9% NACL 1,000 ML IVC SCH ×2 (00:47→11:57)
[2017-04-01] MEDS: Insulin LISPRO 300 UNITS/3 ML VIAL SQ SCH ×3 (05:01→17:26)
[2017-04-01] MEDS: *HR* Heparin 5,000 UNIT/ML VIAL SQ SCH ×3 (05:01→21:21)
[2017-04-01 05:14] LABS: Basophils # 0.1 K/mcL (0.0-0.2); Basophils % 0.5 %; Eosinophils # 0.2 K/mcL (0.0-0.6); Eosinophils % 1.4 %; Hematocrit 38.7 % (35.3-44.9); Hemoglobin 12.3 g/dL (11.5-15.4); Immature Granulocytes % 0.3 % (0-4); Lymphocytes # 2.7 K/mcL (0.6-4.6); Lymphocytes % 23.9 %; Mean Corpuscular HGB Conc 31.8 g/dL (31.6-35.5); Mean Corpuscular Hemoglobin 27.6 pg (28.0-33.3); Mean Corpuscular Volume 86.8 fL (83.0-100.0); Mean Platelet Volume 10.5 fL (9.4-12.4); Neutrophils # 7.3 K/mcL (1.6-8.9); Platelet Count 255 K/mcL (140-400); Red Blood Count 4.46 M/mcL (3.82-4.97); Red Cell Distribution Width 13.3 % (11.5-14.5); Segmented Neutrophils % 64.9 %
[2017-04-01 05:56] LABS: BUN/Creatinine Ratio 14 (6-26); Blood Urea Nitrogen 9 mg/dL (6-20); Calcium 8.1 mg/dL (8.6-10.3); Carbon Dioxide 26 mEq/L (23-29); Chloride 110 mEq/L (98-107); Glucose 109 mg/dL (70-105); Osmolality,Calculated 293 (280-300); Potassium 3.1 mEq/L (3.5-5.1); Sodium 142 mEq/L (136-145); eGFR For African Americans > 60 (> 60); eGFR For Non-African Americans > 60 (> 60)
--- NOTE | 2017-04-01 08:30 | General Surgery Progress Note ---
Date of Encounter: 04/01/17 Time of Encounter: 08:25 - Assessment and Plan (1) Abdominal pain Current Visit: Yes Status: Acute Constipation vs partial SBO. SBFT 03/31/2017 noted contrast in the colon in 3 hours 20 minutes. Findings were compatible with distal's partial small bowel objection. However after completing the small bowel follow-through, patient stated she has had approximately 5 bowel movements and is passing large amounts of flatus. She endorses an appetite and states "I want this thing out now and a diet Mountain Dew." NG tube in place. Pt states she was vomiting around the NG. Imaging notes NG in the tip of the gastric fundus near GE junction. Needs advanced, but pt refuses. She has active bowel sounds at this time. Plan D/c Ng CLD advance diet as tolerated per primary team MiraLAX daily. Mix with 8 ounces of liquid and drink immediately. She is recommended to continue MiraLAX daily while she is on narcotics and until she is having soft, formed down movements (mashed potatoes consistency) daily. She may then decrease MiraLAX to as needed. She has recommended follow-up with her PCP and/or G.I. as an outpatient if symptoms persist. surgery will sign off at this time. Please recall all questions or needs arise. Thank you for allowing us to participate and missed [facility]. Qualifiers: Abdominal location: generalized Qualified Code(s): R10.84 - Generalized abdominal pain Subjective Patient reports: no new complaints, feels better, pain is less, tolerating liquids well, voiding w/o difficulty, flatus, bowel movement (x3), afebrile Objective Vital Signs - Last 8 Hours Temp Pulse Resp BP Pulse Ox 04/01/17 06:58 97.9 F 67 17 154/98 95 04/01/17 05:03 98.4 F 76 15 145/85 94 Intake and Output 03/31/17 04/01/17 04/01/17 23:59 07:59 15:59 Intake Total 220 / 220 1000 / 1000 Output Total 700 / 700 250 / 250 Balance -480 / -480 750 / 750 Intake: IV Fluids 100 / 100 1000 / 1000 D5% And 0.9% Nacl 1000 Ml 1,000 1000 / 1000 ML @ 125 mls/hr IVC .Q8H [facility] Rx#:[id number] Potassium Chloride 10 mEq/100mL 100 / 100 10 meq In 100 ml @ 100 mls/hr IVPB Q1H [facility] Rx#:[id number] Oral 120 / 120 0 / 0 Output: Urine 0 / 0 250 / 250 Urine/Stool Mix 700 / 700 Other: Weight 120.2 kg Blood Glucose* 100 99 Patient Weight 04/01/17 23:59 Weight 120.2 kg - General physical appearance well nourished, no distress, no pain - Eyes normal ocular movement - ENT atraumatic, normocephalic - Neck Neck exam: trachea midline, no venous distension - Respiratory normal expansion, normal respiratory effort, clear to auscultation - Cardiovascular Cardiovascular exam: Present: RRR, distant heart sounds - Abdomen Abdomen: Present: bowel sounds present, soft, non tender Hernia: none - Integumentary no growths, no abnormal pigmentation - Neurologic CN 2-12 grossly intact, normal coordination, normal sensation - Musculoskeletal normal gait, normal posture - Psychiatric oriented to time, oriented to person, oriented to place, speech is normal, memory intact - Labs 04/01/17 04:48 04/01/17 04:48 Diabetes panel 04/01/17 Range/Units 04:48 Sodium 142 (136-145) mEq/L Potassium 3.1 L (3.5-5.1) mEq/L Chloride 110 H (98-107) mEq/L Carbon Dioxide 26 (23-29) mEq/L BUN 9 (6-20) mg/dL Creatinine 0.63 (0.60-1.20) mg/dL Glucose 109 H (70-105) mg/dL Calcium 8.1 L (8.6-10.3) mg/dL Calcium panel 04/01/17 Range/Units 04:48 Calcium 8.1 L (8.6-10.3) mg/dL Pituitary panel 04/01/17 Range/Units 04:48 Sodium 142 (136-145) mEq/L Potassium 3.1 L (3.5-5.1) mEq/L Chloride 110 H (98-107) mEq/L Carbon Dioxide 26 (23-29) mEq/L BUN 9 (6-20) mg/dL Creatinine 0.63 (0.60-1.20) mg/dL Glucose 109 H (70-105) mg/dL Calcium 8.1 L (8.6-10.3) mg/dL Adrenal panel 04/01/17 Range/Units 04:48 Sodium 142 (136-145) mEq/L Potassium 3.1 L (3.5-5.1) mEq/L Chloride 110 H (98-107) mEq/L Carbon Dioxide 26 (23-29) mEq/L BUN 9 (6-20) mg/dL Creatinine 0.63 (0.60-1.20) mg/dL Glucose 109 H (70-105) mg/dL Calcium 8.1 L (8.6-10.3) mg/dL Consult Discharge Plan - Plan Referrals: Carlos Bullock MD [Primary Care Provider] -
[2017-04-01] MEDS: Acetaminophen 650 MG RECTAL SUPP RC PRN (08:47)
--- NOTE | 2017-04-01 13:41 | Internal Med Progress Note ---
<Adrian Sabillon - Last Filed: 04/01/17 14:46> Date of Encounter: 04/01/17 Time of Encounter: 14:46 - Assessment and plan (1) Partial small bowel obstruction Current Visit: Yes Status: Acute Assessment and plan: Patient small bowel follow-through performed yesterday showed findings compatible with distal partial small bowel obstruction, however after the study the patient had multiple bowel movements and was passing large flatus. Her NG tube was removed and her diet was advanced. Patient was also started on MiraLAX at surgery's request until she is having formed bowel movements daily. If the patient continues to improve with advancing diet and bowel movements plan is to discharge her tomorrow with follow-up with primary care. Surgery has signed off at this time. (2) Diabetes Current Visit: Yes Status: Chronic Assessment and plan: Patient is on a corrective low-dose insulin sliding scale Qualifiers: Diabetes mellitus type: type 2 Diabetes mellitus complication status: without complication Diabetes mellitus oil heaterman insulin use: without oil heaterman use Qualified Code(s): E11.9 - Type 2 diabetes mellitus without complications (3) Hypertension Current Visit: Yes Status: Chronic Assessment and plan: When necessary hydralazine was stopped. Patient was placed on lisinopril 5 mg by mouth starting today. Qualifiers: Hypertension type: essential hypertension Qualified Code(s): I10 - Essential (primary) hypertension - Subjective Interval history: Mrs. Cortez is a 51-year-old female with a past medical history of hypertension and diet-controlled diabetes who seen initially on 03/29/17 in the emergency room for abdominal pain associated with nausea and vomiting. Imaging done in the emergency department revealed a partial small bowel traction. Labs at that time showed a leukocytosis with left shift. The patient was admitted to our service and underwent conservative care with IV fluids, NPO, NG tube placement for suction, pain control, and surgery consult. The patient's NG tube's initial placement required advancement after imaging, however the patient was uncooperative due to the discomfort of the NG tube and the tube was not advance. The patient had a small bowel follow-through study which showed possible distal partial small bowel obstruction, however after the study the experienced multiple bowel movements and episodes of flatus. She did endorse in appetite. Patient reports a soft stool this morning. She states that her abdominal pain has been improving as currently a 06/26. Plan to advance her diet as tolerated. I discussed with the patient that if she continues to improve plan is for her to be discharged tomorrow with follow-up. Surgery recommended the patient be on laxatives until she is producing forming stool consistently and off narcotics. I discussed this plan with the patient and she agrees. Her lab work showed improvement and resolution of her leukocytosis and a low potassium which was replaced today. Patient PRN hydralazine was stopped and she was started on lisinopril PO. - Constitutional Vitals: Temp Pulse Resp BP Pulse Ox 98.3 F 79 15 159/135 95 04/01/17 11:46 04/01/17 11:46 04/01/17 11:46 04/01/17 11:46 04/01/17 11:46 General appearance: Present: A&O X 3, morbidly obese, no acute distress Exam: Patient was sitting up in bed drinking a diet Mountain Dew upon my arrival resting comfortably. - Head Head exam: Present: atraumatic, normal inspection, normocephalic - Eye Eye exam: Present: normal appearance, PERRL - Neck Neck exam general surgery: Present: full ROM, normal inspection. Absent: tenderness - Respiratory Respiratory exam: Present: CTAB. Absent: rales, rhonchi, wheezes - Cardiovascular Cardiovascular exam: Present: RRR, +S1, +S2 - GI/Abdominal GI/Abdominal exam: Present: normal bowel sounds, soft, no peritoneal signs. Absent: distended, guarding, rebound, rigid, tenderness Additional comments: Abdomen was nontender to deep palpation. - Extremities Exam Extremities exam: Present: full ROM, normal inspection, warm. Absent: calf tenderness - Back Exam Back exam: Present: normal inspection. Absent: CVA tenderness (L), CVA tenderness (R) - Neurological Exam Neurological exam: Present: alert, oriented X3, no focal deficits - Psychiatric Psychiatric exam: Present: normal affect, normal mood - Skin Skin exam: Present: intact, normal color. Absent: rash Internal Medicine: Result - Labs CBC & Chem 7: 04/01/17 04:48 04/01/17 04:48 Labs: Short CBC 04/01/17 Range/Units 04:48 WBC 11.2 H (4.3-11.1) K/mcL Hgb 12.3 (11.5-15.4) g/dL Hct 38.7 (35.3-44.9) % Plt Count 255 (140-400) K/mcL Neutrophils # 7.3 (1.6-8.9) K/mcL BMP 04/01/17 04:48 Sodium 142 Potassium 3.1 L Chloride 110 H Carbon Dioxide 26 BUN 9 Creatinine 0.63 Glucose 109 H Calcium 8.1 L - Impressions Impressions Small Bowel X-Ray 03/31/17 07:30 IMPRESSION: The above findings are compatible with a mid to distal partial small bowel obstruction. There is no evidence of a high-grade obstruction as contrast reaches the colon by 3 hr 20 minutes. Please note the study was technically limited as the patient would not allow repositioning of the NG tube and would only drink a small amount of contrast for the study. D/ / Fadi Nguyen MD / Fadi Nguyen MD Interpreting Provider: Fadi Nguyen MD - Diagnostic Studies Other Images Status: image reviewed by me Additional comments: Chest X-Ray 03/29/17 01:50 IMPRESSION: Low lung volume study without acute process. No significant change. D/ / 03/29/2017 07:23:49 Manolo Benedict MD / pato Interpreting Provider: Manolo Benedict MD Abdomen/Pelvis CT 03/29/17 02:18 IMPRESSION: Partial small bowel obstruction with transition in the mid abdomen and decompressed loops distally. D/ / Eliud Thompson MD / Eliud Thompson MD Interpreting Provider: Eliud Thompson MD X-Ray 03/29/17 17:08 IMPRESSION: Tip of the enteric tube in the gastric fundus and side-port near the gastroesophageal junction. Consider advancement. D/ / Iftikhar Allen MD / Iftikhar Allen MD Interpreting Provider: Iftikhar Allen MD Small Bowel X-Ray 03/31/17 07:30 IMPRESSION: The above findings are compatible with a mid to distal partial small bowel obstruction. There is no evidence of a high-grade obstruction as contrast reaches the colon by 3 hr 20 minutes. Please note the study was technically limited as the patient would not allow repositioning of the NG tube and would only drink a small amount of contrast for the study. D/ / Fadi Nguyen MD / Fadi Nguyen MD Interpreting Provider: Fadi Nguyen MD Consult Discharge Plan - Plan Referrals: Carlos Bullock MD [Primary Care Provider] - 04/03/17 1:30 pm <Lamont Garrett - Last Filed: 04/01/17 17:26> Date of Encounter: 04/01/17 - Assessment and plan (1) Partial small bowel obstruction Current Visit: Yes Status: Acute (2) Diabetes Current Visit: Yes Status: Chronic Qualifiers: Diabetes mellitus type: type 2 Diabetes mellitus complication status: without complication Diabetes mellitus care home insulin use: without care home use Qualified Code(s): E11.9 - Type 2 diabetes mellitus without complications (3) Hypertension Current Visit: Yes Status: Chronic Qualifiers: Hypertension type: essential hypertension Qualified Code(s): I10 - Essential (primary) hypertension - Constitutional Vitals: Temp Pulse Resp BP Pulse Ox 99.2 F 72 15 148/87 95 04/01/17 15:12 04/01/17 15:12 04/01/17 15:12 04/01/17 15:12 04/01/17 15:12 Internal Medicine: Result - Labs CBC & Chem 7: 04/01/17 04:48 04/01/17 04:48 Labs: Short CBC 04/01/17 Range/Units 04:48 WBC 11.2 H (4.3-11.1) K/mcL Hgb 12.3 (11.5-15.4) g/dL Hct 38.7 (35.3-44.9) % Plt Count 255 (140-400) K/mcL Neutrophils # 7.3 (1.6-8.9) K/mcL BMP 04/01/17 04:48 Sodium 142 Potassium 3.1 L Chloride 110 H Carbon Dioxide 26 BUN 9 Creatinine 0.63 Glucose 109 H Calcium 8.1 L - Attending Attestation seen and examined, now having BM and tolerating po no new complains anticioate d/c home am surgery eval appreciated discontinue antibiotics rest of details as in resident physician's documentation
[2017-04-01] MEDS ORDERED: Insulin LISPRO 300 UNITS/3 ML VIAL SQ SCH (21:00)
[2017-04-02] MEDS ORDERED: Acetaminophen 325 MG TABLET PO PRN (04:45)
[2017-04-02] MEDS: *HR* Heparin 5,000 UNIT/ML VIAL SQ SCH (05:00)
[2017-04-02 06:13] LABS: Basophils # 0.1 K/mcL (0.0-0.2); Basophils % 0.5 %; Eosinophils # 0.3 K/mcL (0.0-0.6); Eosinophils % 2.7 %; Hematocrit 36.7 % (35.3-44.9); Hemoglobin 11.7 g/dL (11.5-15.4); Immature Granulocytes % 0.5 % (0-4); Lymphocytes # 2.4 K/mcL (0.6-4.6); Lymphocytes % 25.4 %; Mean Corpuscular HGB Conc 31.9 g/dL (31.6-35.5); Mean Corpuscular Hemoglobin 27.7 pg (28.0-33.3); Mean Platelet Volume 10.9 fL (9.4-12.4); Monocytes # 0.8 K/mcL (0.0-1.3); Monocytes % 8.7 %; Neutrophils # 5.9 K/mcL (1.6-8.9); Platelet Count 267 K/mcL (140-400); Red Blood Count 4.22 M/mcL (3.82-4.97); Red Cell Distribution Width 13.2 % (11.5-14.5); Segmented Neutrophils % 62.2 %
[2017-04-02 06:35] LABS: BUN/Creatinine Ratio 14 (6-26); Blood Urea Nitrogen 9 mg/dL (6-20); Calcium 8.4 mg/dL (8.6-10.3); Carbon Dioxide 27 mEq/L (23-29); Chloride 106 mEq/L (98-107); Glucose 94 mg/dL (70-105); Magnesium 1.8 mg/dL (1.6-2.6); Osmolality,Calculated 286 (280-300); Sodium 139 mEq/L (136-145); eGFR For African Americans > 60 (> 60); eGFR For Non-African Americans > 60 (> 60)
[2017-04-02] MEDS: Insulin LISPRO 300 UNITS/3 ML VIAL SQ SCH ×2 (09:03→12:17)
--- NOTE | 2017-04-02 09:25 | Discharge Summary ---
<Adrian Sabillon - Last Filed: 04/02/17 14:20> Date of Encounter: 04/02/17 Time of Encounter: 09:23 - Discharge Diagnosis (1) Partial small bowel obstruction Priority: Primary Status: Resolved (2) Diabetes Priority: Secondary Status: Chronic Qualifiers: Diabetes mellitus type: type 2 Diabetes mellitus complication status: without complication Diabetes mellitus watermaster insulin use: without care home use Qualified Code(s): E11.9 - Type 2 diabetes mellitus without complications (3) Hypertension Priority: Secondary Status: Chronic Qualifiers: Hypertension type: essential hypertension Qualified Code(s): I10 - Essential (primary) hypertension - Discharge Medications Prescriptions: Polyethylene Glycol 3350 [MiraLAX] 17 gm PO BID PRN #14 powd.pack PRN Reason: Constipation Potassium Chloride 20 meq PO BID #30 tab.er.prt Home Medications: Lisinopril [Zestril] 5 mg PO DAILY 03/29/17 [History] Polyethylene Glycol 3350 [MiraLAX] 17 gm PO BID PRN #14 powd.pack 04/02/17 [Rx] Potassium Chloride 20 meq PO BID #30 tab.er.prt 04/02/17 [Rx] Allergies/Adverse Reactions: 3 Allergy/AdvReac Type Severity Reaction Status Date / Time Penicillins [PCN] Allergy Difficulty Verified 02/18/15 10:56 Breathing Date of admission: 03/29/17 13:10 Primary care physician: Carlos Bullock MD Discharging clinician: Natalio Corona Anticipated date of discharge: 04/02/17 - Patient Status Disposition: Home, Self-Care Condition: Good Functional capacity at discharge: independent ambulation Overall status at discharge: patient is progressing back to baseline - Discharge Instructions Instructions: Hypokalemia (DC), Bowel Obstruction (GEN) Follow Up With: Elizabeth Mann CNP [Advanced Practice Nurse] - 04/03/17 1:30 pm Additional Instructions: 1. Follow-up with Elizabeth Mann CNP on April 03, 2017 at 1:30PM for reevaluation and further treatment. Call your primary care provider for a 1 week follow-up appointment. If at any time you experience any worsening of your symptoms such as fever, chills, nausea, vomiting, abdominal pain, blood in her stool or any other concerning symptoms return to the nearest emergency department for further evaluation and treatment. Take the prescribed MiraLAX as needed for constipation. Take the potassium supplement as prescribed. - Diet and Activity Activity: resume usual activities as tolerated Diet: advance to your usual diet Hospital course: Ms. Rojas is a 51 year old female with a past medical history of hypertension and diet-controlled diabetes was initially seen on 03/29/17 in the emergency department for abdominal pain associated with nausea and vomiting. Imaging done at that time showed a partial small bowel obstruction. Patient also had a leukocytosis with a left shift. Patient was admitted to our service and underwent conservative care with IV fluids, nothing by mouth, attempted NG tube placement with suction, pain control and surgical consult. NG tube placement was unsuccessful. The patient had a small bowel follow-through study which showed a possible distal partial small bowel obstruction, however after the study the patient experienced multiple bowel movements and episodes of flatus. This occurred yesterday on 04/01/17. Yesterday evening the patient had a full meal that she was advanced on her diet. She had a soft stool bowel movement yesterday as well and continues to have episodes of flatus. She states that her abdominal pain is now at a tolerable level. The patient also had breakfast this morning she is given MiraLAX as well. States she is feeling better and she is ready to go home she lives there with her . The patient was complaining of left lower extremity pain that is radiating from her left hip into her left groin, however states this pain occurs when she gets up and is a sharp shooting pain and resolves when she sits down and leans back. She states that she has Neurontin that she takes at home for neuropathy which she has not been taking while here. Patient does not have any signs of a DVT such as calf tenderness, palpable cord, or asymmetrical lower extremity edema. Discussed with the patient this is most likely due to her being bedridden and should improve with increased movement and function at home. Patient's labs revealed a hypokalemia of 3.0 down from 3.1 yesterday after replacement with 40 mEq. Her magnesium was within normal limits, plan is to replace the patient's potassium with 40 mEq by mouth and a potassium rider prior to discharge. Discussed plan to have the patient follow up with her primary care physician Dr. Pruitt the next week. I discussed return precautions with the patient which include worsening of her current symptoms such as worsening abdominal pain , fever, chills, nausea, vomiting, constipation, diarrhea, blood in stool or any other concerning symptoms the patient is to return to the nearest emergency department for further evaluation and treatment. Patient agrees with this plan. - Time Spent with Patient Total time spent providing and/or coordinating discharge services: - Constitutional Vitals: Temp Pulse Resp BP Pulse Ox 97.9 F 62 15 153/103 93 04/02/17 07:50 04/02/17 07:50 04/02/17 07:50 04/02/17 07:50 04/02/17 07:50 General appearance: Present: A&O X 3, morbidly obese, no acute distress - Head Head exam: Present: atraumatic, normal inspection, normocephalic - Eye Eye exam: Present: EOMI, normal appearance, PERRL - Neck Neck exam general surgery: Present: full ROM, normal inspection. Absent: tenderness - Respiratory Respiratory exam: Present: CTAB. Absent: chest wall tenderness, decreased breath sounds, rales, rhonchi, wheezes - Cardiovascular Cardiovascular exam: Present: RRR, +S1, +S2 - GI/Abdominal GI/Abdominal exam: Present: distended, normal bowel sounds, no peritoneal signs. Absent: guarding, rebound, rigid, tenderness - Extremities Exam Extremities exam: Present: full ROM, normal capillary refill, normal inspection , warm. Absent: calf tenderness, joint swelling, pedal edema, tenderness - Back Exam Back exam: Present: full ROM, normal inspection. Absent: CVA tenderness (L), CVA tenderness (R) - Neurological Exam Neurological exam: Present: alert, oriented X3, reflexes normal, no focal deficits, strengths equal and symetr throughout - Psychiatric Psychiatric exam: Present: normal affect, normal mood - Skin Skin exam: Present: dry, intact, normal color, warm <Dunn,Natalio Davey - Last Filed: 04/02/17 19:07> Date of Encounter: 04/02/17 Date of admission: 03/29/17 13:10 Primary care physician: Carlos Bullock MD Hospital course: Ms. Rojas is a 51 year old female - Time Spent with Patient Total time spent providing and/or coordinating discharge services: - Constitutional Vitals: Temp Pulse Resp BP Pulse Ox 98 F 64 15 148/98 94 04/02/17 11:00 04/02/17 11:00 04/02/17 11:00 04/02/17 11:00 04/02/17 11:00 - Attending Attestation I examined this patient and my medical decision-making was reviewed with the Resident Physician. I agree with the documented findings, disposition and treatment plan as described except to the extent set forth below.
[2017-04-02 11:06] VITALS: BP 148/98
== END 2017-04-02 14:50 | disposition home or self-care (01) | DRG 389 ==
LOC: EMEROO 00:57 → 3ANU 00:57
PROVIDERS: ADMIT Family Medicine; ATTEND Internal Medicine

== ENCOUNTER 2017-04-03 04:13 | Inpatient (IN) ==
[2017-04-03] MEDS ORDERED: 0.9 % Sodium Chloride 1,000 ML IVC ONE ×2 (04:27→07:39)
[2017-04-03] MEDS ORDERED: Ondansetron 4 MG/2 ML VIAL IVP ONE (04:27)
[2017-04-03] MEDS ORDERED: GI Cocktail 40 ML EACH PO ONE (04:28)
[2017-04-03 04:39] LABS: Bilirubin,Urine Small (Negative); Blood,Urine Negative (Negative); Clarity,Urine Cloudy (Clear); Color,Urine Dark Yellow (Yellow); Glucose,Urine (UA) Normal (Normal); Ketones,Urine 80 mg/dL (Negative); Leukocyte Esterase,Urine Small (Negative); Nitrite,Urine Negative (Negative); PH,Urine 7.5 pH Units (5.0-8.0); Protein,Urine 30 mg/dL (Neg-Trace)
[2017-04-03 04:40] LABS: Bacteria,Urine Moderate per hpf (None-Few); Hyaline Casts,Urine None Seen per lpf (None-Few); Squamous Epithelial Cell,Urine Many per lpf (None-Few)
--- NOTE | 2017-04-03 04:48 | Emergency Department Note ---
Disposition Clinical Impression: Small bowel obstruction Disposition: Admitted As Inpatient Condition: Fair Abdominal Pain HPI - General Chief Complaint: ED Abdominal Pain Stated Complaint: abd pain, n/v Time Seen by Provider: 04/03/17 04:18 Source: patient Mode of arrival: private vehicle Limitations: no limitations Nursing Notes Reviewed: Yes Vital Signs Reviewed: Yes - History of Present Illness HPI Narrative: 51-year-old female history of recent partial small bowel obstruction who presents to the ER with a complaint of abdominal pain nausea and vomiting. Patient states that she woke up about an hour prior to arrival with persistent vomiting. States she was told to come back if that happened. She describes epigastric abdominal pain with burning. States that she has been throwing up acid. Reports a history of 2 C-sections and a hysterectomy. Reports no bowel movement states being home. She was just discharged from the hospital. No other complaints. Pt Subjective Complaint: abdominal pain Onset (ago): hour(s) Consistency: constant Location: epigastric Pain Severity: severe Pain Scale: 10 Quality: burning Radiation: none Migration to: no migration Improves with: nothing Worsens with: nothing Associated symptoms: Reports: nausea, vomiting. Denies: diarrhea, dysuria, hematuria Treatments prior to arrival: none - Related Data Home Medications Medication Instructions Recorded Confirmed Lisinopril [Zestril] 5 mg PO DAILY 03/29/17 04/03/17 Gabapentin [Neurontin] 1,600 mg PO QPM 04/03/17 04/03/17 Gabapentin [Neurontin] 800 mg PO QAM 04/03/17 04/03/17 Allergies Allergy/AdvReac Type Severity Reaction Status Date / Time Penicillins [PCN] Allergy Difficulty Verified 02/18/15 10:56 Breathing All systems ED: reviewed and negative except as stated. Constitutional: Denies: fever Cardiovascular: Denies: chest pain Respiratory: Denies: dyspnea Gastrointestinal: Reports: abdominal pain, nausea, vomiting. Denies: diarrhea Genitourinary: Denies: dysuria, hematuria Abdominal Pain PMH - Past Medical History Medical history: Reports: diabetes, hypertension Female Surgical History: Reports: , hysterectomy, Tonsillectomy - Social History Smoking status: Never smoker Alcohol use: Reports: none Drug use: Reports: none Physical Exam - General Limitations: no limitations General appearance: alert, in no apparent distress - Head Head exam: atraumatic, normocephalic - Eye Eye exam: Present: normal appearance - ENT ENT exam: normal exam - Neck Neck exam: Present: normal inspection, full ROM - Chest Chest inspection: Present: normal inspection, symmetric chest wall rise - Respiratory Respiratory exam: Present: normal lung sounds bilaterally - Cardiovascular Cardiovascular exam: Present: regular rate, normal rhythm, normal heart sounds - Abdominal Exam Abdominal exam: Present: soft, tenderness (Patient has moderate epigastric abdominal tenderness without distention guarding or rigidity). Absent: distention, guarding, rigidity - Extremities Exam Extremities exam: Present: normal inspection, full ROM - Expanded Upper Extremity Exam Shoulder exam: Present: normal inspection, full ROM Arm exam: Present: normal inspection, full ROM Elbow exam: Present: normal inspection, full ROM Forearm/Wrist exam: Present: normal inspection, full ROM Hand exam: Present: normal inspection, full ROM - Expanded Lower Extremity Exam Hip/Pelvis exam: Present: normal inspection, full ROM Upper leg exam: Present: normal inspection, full ROM Knee exam: Present: normal inspection, full ROM Lower leg exam: Present: normal inspection, full ROM Ankle exam: Present: normal inspection, full ROM Foot/toe exam: Present: normal inspection, full ROM - Skin Skin exam: Present: warm, dry Course Course Narrative: Patient seen and examined. Vital signs reviewed. We will get a CT scan of the abdomen and pelvis with oral contrast as well as labs and urinalysis. - Reevaluation(s) Reevaluation #1: Discussed results of imaging labs with the patient. We will discuss with the general surgeon on. Reevaluation #2: Gen. surgery paged for Dr. Hanna Time: 07:05 - Consultations Consultation #1: I spoke with Dr. Godinez concerning the patient's CT findings. Patient was recently admitted with surgical consultation. He states to call Dr. Hanna as he previously saw the patient. Vital Signs Temperature 97.9 F 04/03/17 04:14 Pulse Rate 89 04/03/17 04:14 Respiratory Rate 20 04/03/17 04:14 Blood Pressure 178/99 04/03/17 04:14 O2 Sat by Pulse Oximetry 99 04/03/17 04:14 Temperature 98.8 F 04/04/17 04:02 Pulse Rate 89 04/04/17 04:02 Respiratory Rate 16 04/04/17 04:02 Blood Pressure 154/90 04/04/17 04:02 O2 Sat by Pulse Oximetry 94 04/04/17 04:02 Oxygen Delivery Oxygen Delivery Room Air Abdominal Pain - MDM Narrative Medical decision making narrative: 51-year-old female presents to the ER due to vomiting. Recent admission for distal partial small bowel obstruction. Unable to tolerate oral contrast here. CT scan with evidence of a high-grade bowel obstruction. Case was signed out to daysmaft team pending discussion with surgery. - Lab Data Lab results reviewed: Yes I reviewed the patient's lab results. Result diagrams: 04/03/17 05:00 04/03/17 05:53 Lab Results 04/03/17 04/03/17 04/03/17 Range/Units 04:15 05:00 05:00 WBC 13.1 H (4.3-11.1) K/mcL RBC 4.96 (3.82-4.97) M/mcL Hgb 13.7 D (11.5-15.4) g/dL Hct 42.7 (35.3-44.9) % MCV 86.1 (83.0-100.0) fL MCH 27.6 L (28.0-33.3) pg MCHC 32.1 (31.6-35.5) g/dL RDW 13.2 (11.5-14.5) % Plt Count 274 (140-400) K/mcL MPV 10.8 (9.4-12.4) fL Immature Gran % 0.5 (0-4) % Seg Neutrophils % 78.5 % Lymphocytes % 13.6 % Monocytes % 6.8 % Eosinophils % 0.3 % Basophils % 0.3 % Neutrophils # 10.3 H (1.6-8.9) K/mcL Lymphocytes # 1.8 (0.6-4.6) K/mcL Monocytes # 0.9 (0.0-1.3) K/mcL Eosinophils # 0.0 (0.0-0.6) K/mcL Basophils # 0.0 (0.0-0.2) K/mcL PT (9.4-12.1) Seconds INR Sodium (136-145) mEq/L Potassium (3.5-5.1) mEq/L Chloride (98-107) mEq/L Carbon Dioxide (23-29) mEq/L BUN (6-20) mg/dL Creatinine (0.60-1.20) mg/dL Est GFR ( Amer) (> 60) Est GFR (Non-Af Amer) (> 60) BUN/Creatinine Ratio (6-26) Glucose (70-105) mg/dL POC Glucose (58-89) Calculated Osmolality (280-300) Lactic Acid (0.5-2.2) mmol/L Calcium (8.6-10.3) mg/dL Total Bilirubin (0.3-1.0) mg/dL Direct Bilirubin (0.0-0.2) mg/dL Indirect Bilirubin (0.0-1.2) mg/dL AST (13-39) Units/L ALT (7-52) Units/L Alkaline Phosphatase (34-104) Units/L Serum Total Protein (6.4-8.9) g/dL Albumin (3.5-5.7) g/dL Globulin (2.4-3.5) g/dL Albumin/Globulin Ratio (1.1-2.2) Lipase (11-82) Units/L Urine Color Dark Yellow (Yellow) Urine Clarity Cloudy A (Clear) Urine pH 7.5 (5.0-8.0) pH Units Ur Specific [place] 1.020 (1.010-1.025) Urine Protein 30 H (Neg-Trace) mg/dL Urine Glucose (UA) Normal (Normal) mg/dL Urine Ketones 80 H (Negative) mg/dL Urine Blood Negative (Negative) Urine Nitrite Negative (Negative) Urine Bilirubin Small H (Negative) Urine Urobilinogen 2.0 H (Normal) mg/dL Ur Leukocyte Esterase Small H (Negative) Urine Microscopic RBC 5-15 H (0-3) per hpf Urine Microscopic WBC 5-15 H (0-3) per hpf Ur Squamous Epith Cells Many H (None-Few) per lpf Urine Bacteria Moderate H (None-Few) per hpf Hyaline Casts None Seen (None-Few) per lpf Ur Culture Indicated? NO. (NO) Specimen Rejected Hemolyzed 04/03/17 04/03/17 04/03/17 Range/Units 05:53 07:51 07:52 WBC (4.3-11.1) K/mcL RBC (3.82-4.97) M/mcL Hgb (11.5-15.4) g/dL Hct (35.3-44.9) % MCV (83.0-100.0) fL MCH (28.0-33.3) pg MCHC (31.6-35.5) g/dL RDW (11.5-14.5) % Plt Count (140-400) K/mcL MPV (9.4-12.4) fL Immature Gran % (0-4) % Seg Neutrophils % % Lymphocytes % % Monocytes % % Eosinophils % % Basophils % % Neutrophils # (1.6-8.9) K/mcL Lymphocytes # (0.6-4.6) K/mcL Monocytes # (0.0-1.3) K/mcL Eosinophils # (0.0-0.6) K/mcL Basophils # (0.0-0.2) K/mcL PT 10.9 (9.4-12.1) Seconds INR 1.0 Sodium 138 (136-145) mEq/L Potassium 3.5 (3.5-5.1) mEq/L Chloride 100 (98-107) mEq/L Carbon Dioxide 29 (23-29) mEq/L BUN 11 (6-20) mg/dL Creatinine 0.62 (0.60-1.20) mg/dL Est GFR ( Amer) > 60 (> 60) Est GFR (Non-Af Amer) > 60 (> 60) BUN/Creatinine Ratio 18 (6-26) Glucose 110 H (70-105) mg/dL POC Glucose (58-89) Calculated Osmolality 286 (280-300) Lactic Acid 0.8 (0.5-2.2) mmol/L Calcium 8.9 (8.6-10.3) mg/dL Total Bilirubin 0.8 (0.3-1.0) mg/dL Direct Bilirubin 0.2 (0.0-0.2) mg/dL Indirect Bilirubin 0.6 (0.0-1.2) mg/dL AST 27 (13-39) Units/L ALT 43 (7-52) Units/L Alkaline Phosphatase 90 (34-104) Units/L Serum Total Protein 6.8 (6.4-8.9) g/dL Albumin 3.8 (3.5-5.7) g/dL Globulin 3.0 (2.4-3.5) g/dL Albumin/Globulin Ratio 1.3 (1.1-2.2) Lipase 33 (11-82) Units/L Urine Color (Yellow) Urine Clarity (Clear) Urine pH (5.0-8.0) pH Units Ur Specific [place] (1.010-1.025) Urine Protein (Neg-Trace) mg/dL Urine Glucose (UA) (Normal) mg/dL Urine Ketones (Negative) mg/dL Urine Blood (Negative) Urine Nitrite (Negative) Urine Bilirubin (Negative) Urine Urobilinogen (Normal) mg/dL Ur Leukocyte Esterase (Negative) Urine Microscopic RBC (0-3) per hpf Urine Microscopic WBC (0-3) per hpf Ur Squamous Epith Cells (None-Few) per lpf Urine Bacteria (None-Few) per hpf Hyaline Casts (None-Few) per lpf Ur Culture Indicated? (NO) Specimen Rejected 04/03/17 Range/Units 12:28 WBC (4.3-11.1) K/mcL RBC (3.82-4.97) M/mcL Hgb (11.5-15.4) g/dL Hct (35.3-44.9) % MCV (83.0-100.0) fL MCH (28.0-33.3) pg MCHC (31.6-35.5) g/dL RDW (11.5-14.5) % Plt Count (140-400) K/mcL MPV (9.4-12.4) fL Immature Gran % (0-4) % Seg Neutrophils % % Lymphocytes % % Monocytes % % Eosinophils % % Basophils % % Neutrophils # (1.6-8.9) K/mcL Lymphocytes # (0.6-4.6) K/mcL Monocytes # (0.0-1.3) K/mcL Eosinophils # (0.0-0.6) K/mcL Basophils # (0.0-0.2) K/mcL PT (9.4-12.1) Seconds INR Sodium (136-145) mEq/L Potassium (3.5-5.1) mEq/L Chloride (98-107) mEq/L Carbon Dioxide (23-29) mEq/L BUN (6-20) mg/dL Creatinine (0.60-1.20) mg/dL Est GFR ( Amer) (> 60) Est GFR (Non-Af Amer) (> 60) BUN/Creatinine Ratio (6-26) Glucose (70-105) mg/dL POC Glucose 77 (58-89) Calculated Osmolality (280-300) Lactic Acid (0.5-2.2) mmol/L Calcium (8.6-10.3) mg/dL Total Bilirubin (0.3-1.0) mg/dL Direct Bilirubin (0.0-0.2) mg/dL Indirect Bilirubin (0.0-1.2) mg/dL AST (13-39) Units/L ALT (7-52) Units/L Alkaline Phosphatase (34-104) Units/L Serum Total Protein (6.4-8.9) g/dL Albumin (3.5-5.7) g/dL Globulin (2.4-3.5) g/dL Albumin/Globulin Ratio (1.1-2.2) Lipase (11-82) Units/L Urine Color (Yellow) Urine Clarity (Clear) Urine pH (5.0-8.0) pH Units Ur Specific [place] (1.010-1.025) Urine Protein (Neg-Trace) mg/dL Urine Glucose (UA) (Normal) mg/dL Urine Ketones (Negative) mg/dL Urine Blood (Negative) Urine Nitrite (Negative) Urine Bilirubin (Negative) Urine Urobilinogen (Normal) mg/dL Ur Leukocyte Esterase (Negative) Urine Microscopic RBC (0-3) per hpf Urine Microscopic WBC (0-3) per hpf Ur Squamous Epith Cells (None-Few) per lpf Urine Bacteria (None-Few) per hpf Hyaline Casts (None-Few) per lpf Ur Culture Indicated? (NO) Specimen Rejected - Radiology Data Radiology results reviewed: Yes I reviewed the patient's radiology results. Abdomen/Pelvis CT 04/03/17 04:27 IMPRESSION: 1. Closed loop bowel obstruction with adjacent transition points in the left lower quadrant. Small amount of ascites within the mesentery of the closed loop which involves approximately 30 cm segment of bowel. The upstream small bowel is dilated as well up to 4.5 cm. Reactive ascites has increased. Findings compatible with a high-grade bowel obstruction. No free intraperitoneal air or abscess. No bowel pneumatosis has developed. D/ / Francisco Javier Avelar MD / Francisco Javier Avelar MD Interpreting Provider: Francisco Javier Avelar MD Attestation Statement - Attestation Attestation: I, Kingston Vitale MD, personally evaluated this patient and discussed their management with the resident physician. I reviewed the resident's note and agree with the documented findings, medical decision making, and plan of care. 51-year-old female presents to the emergency department with a complaint of abdominal pain associated with nausea and vomiting. Patient was recently admitted to the hospital for partial distal small bowel obstruction. She was discharged yesterday. She states after going home she developed increased pain and then about 4 AM started vomiting. No fever. No GI bleed. Patient has had prior abdominal surgery for C-sections. On examination patient is a well-developed obese female in no acute distress. She is alert and oriented 3. There is no cyanosis or diaphoresis. Breath sounds are clear and equal bilaterally. Heart regular rate and rhythm. Abdomen is soft with slightly increased bowel sounds. There is moderate mid abdominal tenderness. Labs reviewed. CT of the abdomen and pelvis shows: Closed loop bowel obstruction with adjacent transition points in the left lower quadrant. Small amount of ascites within the mesentery of the closed loop which involves approximately 30 cm segment of bowel. The upstream small bowel is dilated as well up to 4.5 cm. Reactive ascites has increased. Findings compatible with a high-grade bowel obstruction. No free intraperitoneal air or abscess. No bowel pneumatosis has developed. At shift change [facility] Dr. Waldrop and Dr. Bunch. Patient is awaiting surgery consultation.
[2017-04-03 05:14] LABS: Basophils % 0.3 %; Eosinophils % 0.3 %; Hematocrit 42.7 % (35.3-44.9); Hemoglobin 13.7 g/dL (11.5-15.4); Immature Granulocytes % 0.5 % (0-4); Lymphocytes # 1.8 K/mcL (0.6-4.6); Lymphocytes % 13.6 %; Mean Corpuscular HGB Conc 32.1 g/dL (31.6-35.5); Mean Corpuscular Hemoglobin 27.6 pg (28.0-33.3); Mean Corpuscular Volume 86.1 fL (83.0-100.0); Mean Platelet Volume 10.8 fL (9.4-12.4); Monocytes # 0.9 K/mcL (0.0-1.3); Monocytes % 6.8 %; Neutrophils # 10.3 K/mcL (1.6-8.9); Platelet Count 274 K/mcL (140-400); Red Blood Count 4.96 M/mcL (3.82-4.97); Red Cell Distribution Width 13.2 % (11.5-14.5); Segmented Neutrophils % 78.5 %
[2017-04-03 06:37] LABS: Alanine Aminotransferase 43 Units/L (7-52); Albumin 3.8 g/dL (3.5-5.7); Albumin/Globulin Ratio 1.3 (1.1-2.2); Alkaline Phosphatase 90 Units/L (34-104); Aspartate Amino Transferase 27 Units/L (13-39); BUN/Creatinine Ratio 18 (6-26); Bilirubin,Direct 0.2 mg/dL (0.0-0.2); Bilirubin,Indirect 0.6 mg/dL (0.0-1.2); Bilirubin,Total 0.8 mg/dL (0.3-1.0); Blood Urea Nitrogen 11 mg/dL (6-20); Calcium 8.9 mg/dL (8.6-10.3); Carbon Dioxide 29 mEq/L (23-29); Chloride 100 mEq/L (98-107); Glucose 110 mg/dL (70-105); Lipase 33 Units/L (11-82); Osmolality,Calculated 286 (280-300); Potassium 3.5 mEq/L (3.5-5.1); Sodium 138 mEq/L (136-145); Total Protein 6.8 g/dL (6.4-8.9); eGFR For African Americans > 60 (> 60); eGFR For Non-African Americans > 60 (> 60)
--- NOTE | 2017-04-03 07:30 | Emergency Department Note ---
Disposition Clinical Impression: Small bowel obstruction Disposition: Admitted As Inpatient Condition: Fair General Adult HPI - General Chief complaint: ED Abdominal Pain Stated complaint: abd pain, n/v Time Seen by Provider: 04/03/17 04:18 Source: patient Mode of arrival: private vehicle Limitations: no limitations - History of Present Illness HPI Narrative: Patient signed out by the prior provider. Please see their documentation for complete history and physical. Pain Scale: 10 - Related Data Home Medications Medication Instructions Recorded Confirmed Lisinopril [Zestril] 5 mg PO DAILY 03/29/17 04/03/17 Gabapentin [Neurontin] 1,600 mg PO QPM 04/03/17 04/03/17 Gabapentin [Neurontin] 800 mg PO QAM 04/03/17 04/03/17 Allergies Allergy/AdvReac Type Severity Reaction Status Date / Time Penicillins [PCN] Allergy Difficulty Verified 02/18/15 10:56 Breathing Constitutional: Denies: fever Cardiovascular: Denies: chest pain Respiratory: Denies: dyspnea Gastrointestinal: Reports: abdominal pain, nausea, vomiting. Denies: diarrhea Genitourinary: Denies: dysuria, hematuria Past Medical History - Past Medical History Medical history: Reports: diabetes, hypertension Surgical history: Reports: , hysterectomy, FEMI/BSO - Social History Smoking Status: Never smoker Smokeless Tobacco Status: No Alcohol use: Reports: none Drug use: Reports: none Physical Exam - General Limitations: no limitations General appearance: alert, in no apparent distress Course - Reevaluation(s) Reevaluation #1: Patient was recently admitted for a partial bowel obstruction. Patient states that her pain got significantly worse acutely in the past 24 hours. Noted to start vomiting. Time: 07:50 - Consultations Consultation #1: Spoke with Dr. Godinez who will see the patient in consult. Time: 07:40 Vital Signs Temperature 97.9 F 04/03/17 04:14 Pulse Rate 89 04/03/17 04:14 Respiratory Rate 20 04/03/17 04:14 Blood Pressure 178/99 04/03/17 04:14 O2 Sat by Pulse Oximetry 99 04/03/17 04:14 Temperature 97.9 F 04/03/17 04:14 Pulse Rate 75 04/03/17 08:21 Respiratory Rate 16 04/03/17 08:21 Blood Pressure 180/93 04/03/17 08:21 O2 Sat by Pulse Oximetry 98 04/03/17 08:21 Oxygen Delivery Oxygen Delivery Room Air Medical Decision Making - MDM Narrative Medical decision making narrative: Patient was signed out by the prior provider. Patient was completed waiting on surgery consult. Patient has a history of recent bowel obstruction treated conservatively. Patient was discharged home with recurrence of pain and vomiting in the past 24 hours. Discussed the case with surgery and rhythm CT impression verbatim per the radiologist. They will see the patient consult. Also discussed the patient with hospitalist. - Lab Data Lab results reviewed: Yes I reviewed the patient's lab results. Result diagrams: 04/03/17 05:00 04/03/17 05:53 Lab Results 04/03/17 04/03/17 04/03/17 Range/Units 04:15 05:00 05:00 WBC 13.1 H (4.3-11.1) K/mcL RBC 4.96 (3.82-4.97) M/mcL Hgb 13.7 D (11.5-15.4) g/dL Hct 42.7 (35.3-44.9) % MCV 86.1 (83.0-100.0) fL MCH 27.6 L (28.0-33.3) pg MCHC 32.1 (31.6-35.5) g/dL RDW 13.2 (11.5-14.5) % Plt Count 274 (140-400) K/mcL MPV 10.8 (9.4-12.4) fL Immature Gran % 0.5 (0-4) % Seg Neutrophils % 78.5 % Lymphocytes % 13.6 % Monocytes % 6.8 % Eosinophils % 0.3 % Basophils % 0.3 % Neutrophils # 10.3 H (1.6-8.9) K/mcL Lymphocytes # 1.8 (0.6-4.6) K/mcL Monocytes # 0.9 (0.0-1.3) K/mcL Eosinophils # 0.0 (0.0-0.6) K/mcL Basophils # 0.0 (0.0-0.2) K/mcL PT (9.4-12.1) Seconds INR Sodium (136-145) mEq/L Potassium (3.5-5.1) mEq/L Chloride (98-107) mEq/L Carbon Dioxide (23-29) mEq/L BUN (6-20) mg/dL Creatinine (0.60-1.20) mg/dL Est GFR ( Amer) (> 60) Est GFR (Non-Af Amer) (> 60) BUN/Creatinine Ratio (6-26) Glucose (70-105) mg/dL Calculated Osmolality (280-300) Lactic Acid (0.5-2.2) mmol/L Calcium (8.6-10.3) mg/dL Total Bilirubin (0.3-1.0) mg/dL Direct Bilirubin (0.0-0.2) mg/dL Indirect Bilirubin (0.0-1.2) mg/dL AST (13-39) Units/L ALT (7-52) Units/L Alkaline Phosphatase (34-104) Units/L Serum Total Protein (6.4-8.9) g/dL Albumin (3.5-5.7) g/dL Globulin (2.4-3.5) g/dL Albumin/Globulin Ratio (1.1-2.2) Lipase (11-82) Units/L Urine Color Dark Yellow (Yellow) Urine Clarity Cloudy A (Clear) Urine pH 7.5 (5.0-8.0) pH Units Ur Specific [place] 1.020 (1.010-1.025) Urine Protein 30 H (Neg-Trace) mg/dL Urine Glucose (UA) Normal (Normal) mg/dL Urine Ketones 80 H (Negative) mg/dL Urine Blood Negative (Negative) Urine Nitrite Negative (Negative) Urine Bilirubin Small H (Negative) Urine Urobilinogen 2.0 H (Normal) mg/dL Ur Leukocyte Esterase Small H (Negative) Urine Microscopic RBC 5-15 H (0-3) per hpf Urine Microscopic WBC 5-15 H (0-3) per hpf Ur Squamous Epith Cells Many H (None-Few) per lpf Urine Bacteria Moderate H (None-Few) per hpf Hyaline Casts None Seen (None-Few) per lpf Ur Culture Indicated? NO. (NO) Specimen Rejected Hemolyzed 04/03/17 04/03/17 04/03/17 Range/Units 05:53 07:51 07:52 WBC (4.3-11.1) K/mcL RBC (3.82-4.97) M/mcL Hgb (11.5-15.4) g/dL Hct (35.3-44.9) % MCV (83.0-100.0) fL MCH (28.0-33.3) pg MCHC (31.6-35.5) g/dL RDW (11.5-14.5) % Plt Count (140-400) K/mcL MPV (9.4-12.4) fL Immature Gran % (0-4) % Seg Neutrophils % % Lymphocytes % % Monocytes % % Eosinophils % % Basophils % % Neutrophils # (1.6-8.9) K/mcL Lymphocytes # (0.6-4.6) K/mcL Monocytes # (0.0-1.3) K/mcL Eosinophils # (0.0-0.6) K/mcL Basophils # (0.0-0.2) K/mcL PT 10.9 (9.4-12.1) Seconds INR 1.0 Sodium 138 (136-145) mEq/L Potassium 3.5 (3.5-5.1) mEq/L Chloride 100 (98-107) mEq/L Carbon Dioxide 29 (23-29) mEq/L BUN 11 (6-20) mg/dL Creatinine 0.62 (0.60-1.20) mg/dL Est GFR ( Amer) > 60 (> 60) Est GFR (Non-Af Amer) > 60 (> 60) BUN/Creatinine Ratio 18 (6-26) Glucose 110 H (70-105) mg/dL Calculated Osmolality 286 (280-300) Lactic Acid 0.8 (0.5-2.2) mmol/L Calcium 8.9 (8.6-10.3) mg/dL Total Bilirubin 0.8 (0.3-1.0) mg/dL Direct Bilirubin 0.2 (0.0-0.2) mg/dL Indirect Bilirubin 0.6 (0.0-1.2) mg/dL AST 27 (13-39) Units/L ALT 43 (7-52) Units/L Alkaline Phosphatase 90 (34-104) Units/L Serum Total Protein 6.8 (6.4-8.9) g/dL Albumin 3.8 (3.5-5.7) g/dL Globulin 3.0 (2.4-3.5) g/dL Albumin/Globulin Ratio 1.3 (1.1-2.2) Lipase 33 (11-82) Units/L Urine Color (Yellow) Urine Clarity (Clear) Urine pH (5.0-8.0) pH Units Ur Specific [place] (1.010-1.025) Urine Protein (Neg-Trace) mg/dL Urine Glucose (UA) (Normal) mg/dL Urine Ketones (Negative) mg/dL Urine Blood (Negative) Urine Nitrite (Negative) Urine Bilirubin (Negative) Urine Urobilinogen (Normal) mg/dL Ur Leukocyte Esterase (Negative) Urine Microscopic RBC (0-3) per hpf Urine Microscopic WBC (0-3) per hpf Ur Squamous Epith Cells (None-Few) per lpf Urine Bacteria (None-Few) per hpf Hyaline Casts (None-Few) per lpf Ur Culture Indicated? (NO) Specimen Rejected - Radiology Data Radiology results reviewed: Yes I reviewed the patient's radiology results. Abdomen/Pelvis CT 04/03/17 04:27 IMPRESSION: 1. Closed loop bowel obstruction with adjacent transition points in the left lower quadrant. Small amount of ascites within the mesentery of the closed loop which involves approximately 30 cm segment of bowel. The upstream small bowel is dilated as well up to 4.5 cm. Reactive ascites has increased. Findings are compatible with a high-grade bowel obstruction. No free intraperitoneal air or abscess. No bowel pneumatosis has developed. D/ / 04/03/2017 07:38:54 Francisco Javier Avelar MD / [facility] Interpreting Provider: MD Dominique Westbrook - S.B.ATatiana Situation: Demographics Background: Presenting Complaint Assessment: Vital Signs, Course and respsone to treatment, Patient/Family Expectation Recommendation: Barrier(s) to disposition, Recommendation based on pending studies, treatments, or consults S.B.A.RCal Report Given to: Dr. Yaneli MitchellATatiana Repor Time: 08:08 Attestation Statement - Attestation Attestation: I examined this patient and my medical decision-making was reviewed with the Resident Physician. I agree with the documented findings, disposition and treatment plan as described except to the extent set forth below. Patient signed out pending admission. Patient with a small bowel obstruction, hernia. She has been discussed with surgery. Admitted to medicine. Patient comfortable and voices no concerns.
[2017-04-03] MEDS ORDERED: *HR* FentaNYL (PF) 100 MCG/2 ML VIAL IVP ONE (07:38)
[2017-04-03] MEDS ORDERED: Metoclopramide 10 MG/2 ML VIAL IVP ONE (07:53)
[2017-04-03 08:06] LABS: Prothrombin Time 10.9 Seconds (9.4-12.1)
--- NOTE | 2017-04-03 08:29 | Internal Med History&Physical ---
Date of Encounter: 04/03/17 Time of Encounter: 08:27 Assessment and Plan (1) Uncontrolled hypertension Current visit: Yes Status: Acute Exacerbated by pain. Hold lisinopril. Pain control. Iv labetalol PRN. (2) Small bowel obstruction Current visit: Yes Status: Acute Severe abdominal pain, pt not passing gas, physical exam findings and imaging suggestive of high degree SBO. Surgery was consulted from ED, I will discuss the case with the surgeon application development liaison. She may need emergent laparotomy. Will provide pain control with iv fentanyl. High risk due to possible need for emergent surgery and iv controlled substances. NPO. (3) Abdominal pain Current visit: No Status: Acute iv Fentanyl. Qualifiers: Abdominal location: generalized Qualified Code(s): R10.84 - Generalized abdominal pain (4) Diabetes Current visit: No Status: Chronic We'll provide insulin sliding scale Q6H Qualifiers: Diabetes mellitus type: type 2 Diabetes mellitus complication status: without complication Diabetes mellitus long winder tender insulin use: without retirement use Qualified Code(s): E11.9 - Type 2 diabetes mellitus without complications Internal Medicine - H&P: HPI Chief complaint: Abdominal pain Admitted From: Emergency Dept Plans for Post Hospital Care: Home History of present illness: Ms. Rojas is a 51 year old female with past medical history of HTN and DM, recently admitted for partial SBO, discharged yesterday presents with severe, sharp, left sided abdminal pain associated with nausea and vomiting, pain improved with iv fentanyl. She has not passed gas or BM since being discharged yesterday. Pain started last night and progressed becoming intolerable this morning. Currently reports pain 10/10 in the left side of her abdomen. ROS negative except as above. SH: denies tobacco, alcohol and recreational drug use Surgical history: x2 and hysterectomy Past Med Surg Social Fam HX - Past Medical History Medical history: diabetes, hypertension - Past Surgical History Surgical History: , hysterectomy, FEMI/BSO - Social History Smoking Status: Never smoker Smokeless Tobacco Status: No Alcohol use: none Drug use: none - Family History Father Hx Family GI Disorders: Yes (had SBO, from comlplication of SBO) Internal Medicine - H&P: Meds Lisinopril [Zestril] 5 mg PO DAILY 03/29/17 [History] Gabapentin [Neurontin] 1,600 mg PO QPM 04/03/17 [History] Gabapentin [Neurontin] 800 mg PO QAM 04/03/17 [History] 3 Allergy/AdvReac Type Severity Reaction Status Date / Time Penicillins [PCN] Allergy Difficulty Verified 02/18/15 10:56 Breathing All Systems PM: A 10-system review of systems was performed and is negative for pertinent findings except as documented above in the HPI. - Constitutional Vitals: Temp Pulse Resp BP Pulse Ox 97.9 F 75 16 180/93 98 04/03/17 04:14 04/03/17 08:21 04/03/17 08:21 04/03/17 08:21 04/03/17 08:21 General appearance: Present: A&O X 3, morbidly obese, severe distress - Eye Eye exam: Present: PERRL, conjuntiva pink, sclera anicteric Pupils: Present: PERRL - Cardiovascular Cardiovascular exam: Present: RRR, +S1, +S2. Absent: diastolic murmur, gallop, rubs, systolic murmur - GI/Abdominal GI/Abdominal exam: Present: hypoactive bowel sounds, normal bowel sounds, rebound, soft, tenderness (severely tender diffusely, worse in the L flank, LLQ) . Absent: distended, guarding - Extremities Exam Extremities exam: Present: warm, radial pulses palpable and symmetrical. Absent : calf tenderness, cyanotic, pedal edema - Neurological Exam Neurological exam: Present: CN II-XII intact, oriented X3, no focal deficits. Absent: facial droop, speech deficit - Skin Skin exam: Present: dry, intact Internal Med - H&P Results - Labs CBC & Chem 7: 04/03/17 05:00 04/03/17 05:53 - Impressions CT/CT abd pelvis wo iv oral only IMPRESSION: 1. Closed loop bowel obstruction with adjacent transition points in the left lower quadrant. Small amount of ascites within the mesentery of the closed loop which involves approximately 30 cm segment of bowel. The upstream small bowel is dilated as well up to 4.5 cm. Reactive ascites has increased. Findings are compatible with a high-grade bowel obstruction. No free intraperitoneal air or abscess. No bowel pneumatosis has developed. I personally reviewed the images and agree with high grade SBO with transition point in LLQ.
[2017-04-03] MEDS ORDERED: *HR* Labetalol 20 MG/4 ML SYRINGE IVP PRN (08:51)
[2017-04-03] MEDS ORDERED: Ondansetron 4 MG/2 ML VIAL IVP PRN ×2 (08:57→20:19)
[2017-04-03] MEDS ORDERED: Pantoprazole 40 MG VIAL IVP SCH (09:00)
--- NOTE | 2017-04-03 09:56 | General Surgery Consult Note ---
<Matilda Luque - Last Filed: 04/03/17 09:37> Date of Encounter: 04/03/17 Time of Encounter: 08:45 Assessment and Plan (1) Small bowel obstruction Current Visit: Yes Status: Acute Patient's exam and imaging findings are consistent with a high-grade small bowel obstruction. Suspect that progression of the bowel obstruction is due to nonadherence to previously recommended treatment therapy and skewing his information regarding her bowel movements during previous hospital stay. I did review at length with this foster the need for NG tube therapy for decompression and she adamantly refuses. I reviewed the risks and benefits regarding and notably shaken refuses. Given the progression of her small bowel instruction and her refusal of appropriate decompression therapy, we will plan for surgical intervention in the next 24 to 48 hours for laparotomy and possible small bowel resection. Risks, benefits, and recommendations were reviewed with patient and she is agreeable to proceed. A signed copy of her consent is on her hard chart. Of note, patient is informed that in NG tube will be placed during surgery as part of the surgical process and she is agreeable. Plan: NPO IV fluids per primary team discomfort management and supportive care apply EP CDs now continue G.I. and DVT prophylaxis will start Cipro and Flagyl now CT abdomen with oral contrast: GI/Bowel: Multiple dilated fluid-filled loops of small bowel are present with collapsed completely decompressed ileum in the right lower quadrant. In the left lower quadrant, there are adjacent closely approximated collapsed loops of bowel compatible with a transition point and a closed loop bowel obstruction. The bowel within the closed loop is dilated up to 3.5 cm, similar to the prior exam. The closed loop involves approximately 30 cm of bowel. Some edema remains in the mesentery of the closed loop. The proximal small bowel and jejunum upstream from the area of the closed loop obstruction is dilated up to 4.[address]/CT abd pelvis wo iv oral only IMPRESSION: 1. Closed loop bowel obstruction with adjacent transition points in the left lower quadrant. Small amount of ascites within the mesentery of the closed loop which involves approximately 30 cm segment of bowel. The upstream small bowel is dilated as well up to 4.5 cm. Reactive ascites has increased. Findings are compatible with a high-grade bowel obstruction. No free intraperitoneal air or abscess. No bowel pneumatosis has developed. (2) Nonadherence to medical treatment Current Visit: Yes Status: Acute Previously during hospital stay, patient reported large BMs x5 and multiple episodes of flatus shortly after her SBFT and she was appropriately subsequently d/c'd. Upon return to the hospital today, she reports, "no I only had a couple bowel movements and they were really small," endorsing that she wanted the NG tube out. Extensive education and encouragement to adhere to medicine and surgery recommendations. Pt continues to refuse NG tube placement for appropriate decompression of SBO. (3) Abdominal pain Current Visit: No Status: Acute Qualifiers: Abdominal location: generalized Qualified Code(s): R10.84 - Generalized abdominal pain (4) Diabetes Current Visit: No Status: Chronic Qualifiers: Diabetes mellitus type: type 2 Diabetes mellitus complication status: without complication Diabetes mellitus chcf insulin use: without emt intermediate use Qualified Code(s): E11.9 - Type 2 diabetes mellitus without complications (5) Hypertension Current Visit: No Status: Chronic Qualifiers: Hypertension type: essential hypertension Qualified Code(s): I10 - Essential (primary) hypertension History of Present Illness Consult date: 04/03/17 (Dr. Adria Godinez) Reason for consult: abdominal pain Requesting physician: Messi Waldrop History of present illness: Jenny is a 51-year-old female past medical history of obesity, uncontrolled hypertension, "prediabetes," chronic pain for which she takes gabapentin, small bowel obstruction (March 2017), and a surgical history of C -section x2, and total abdominal hysterectomy. She denies a smoking, alcohol, or illicit drug use history. She was most recently admitted 03/29- for a small bowel obstruction. She was treated with an NG tube placement (patient states this was quite difficult to have placed and eventually had to have a pediatric NG tube placed), IV fluids , IV antibiotics, and serial imaging. During this hospitalization, she also had a small bowel follow-through which noted contrast in the colon in approximately 3 hours and 20 minutes. On 04/01/2017 she reported having several large bowel movements (x5) bowel movements, she had eaten a meal, insisted that NG be removed and was eventually d/c'd home on MiraLAX. On 04/03/2017 she presented to the emergency department complaining of severe abdominal discomfort, vomiting "what looks like baby diarrhea," lack of bowel movements or flatus, and nausea. CT of the abdomen and pelvis was obtained which notes closed loop bowel obstruction with a duration transition points in the left lower quadrant. Small amount of ascites within the mesentery of the closed loop which involves approximately 30 cm segment of bowel. The upstream small bowel is dilated as well as up to 4.5 cm. Reactive ascites has increased and findings are compatible with a high grade bowel obstruction. No free air, abscess, or pneumatosis has developed. Her white blood cell count is 13.1 and is without Bandemia. Jenny denies fever, chills, headache, dizziness, syncope, near syncope, chest pain, shortness of breath, diarrhea, frequency or burning with urination, or generalized weakness. She endorses abdominal pain rated 6/10 and sharp. She endorses nausea, vomiting stool, and abdominal distention. Of note, when she recounts her recent hospitalization she now reports that she had to recovery "very small bowel movements prior to leaving." She again preeminently refuses NG tube placement. Past Med Surg Social Fam HX - Past Medical History Source: patient, old records reviewed Medical history: diabetes, hypertension, other (chronic pain) - Past Surgical History Surgical History: , hysterectomy, FEMI/BSO - Social History Smoking Status: Never smoker Smokeless Tobacco Status: No Alcohol use: none Drug use: none Occupational status: other Current living situation: Home - Independent Activity Level: Independent ambulation Recent Out of Country Travel Within the Last 8 Weeks: No Exposure or Possible Exposure to Illness During Travel: No - Family History Father Hx Family GI Disorders: Yes (had SBO, from comlplication of SBO) Medications and Allergies Lisinopril [Zestril] 5 mg PO DAILY 03/29/17 [History] Gabapentin [Neurontin] 1,600 mg PO QPM 04/03/17 [History] Gabapentin [Neurontin] 800 mg PO QAM 04/03/17 [History] 3 Allergy/AdvReac Type Severity Reaction Status Date / Time Penicillins [PCN] Allergy Difficulty Verified 02/18/15 10:56 Breathing Review of Systems All systems PM: reviewed and no additional remarkable complaints except as stated All systems PM: A 10-system review of systems was performed and is negative for pertinent findings except as documented above in the HPI. General Surgery Exam Initial Vital Signs Temp Pulse Resp BP Pulse Ox 97.9 F 89 20 178/99 99 04/03/17 04:14 04/03/17 04:14 04/03/17 04:14 04/03/17 04:14 04/03/17 04:14 - General physical appearance moderate distress, moderate pain - Eyes normal ocular movement - ENT normal nares, normal mucosa, atraumatic, normocephalic - Neck trachea midline, no venous distension - Respiratory normal expansion, normal respiratory effort, clear to percussion, clear to auscultation - Cardiovascular Cardiovascular exam: Present: RRR, murmurs, distant heart sounds - Abdomen Abdomen general surgery: Present: bowel sounds present (High-pitched and tinkling), tympanic, distended, tender Hernia: Present: none - Integumentary Integumentary general surgery: Present: warm and dry, no abnormal pigmentation - Neurologic Present: CN 2-12 grossly intact, normal coordination, normal sensation - Musculoskeletal Present: normal gait, normal posture - Psychiatric Psychiatric general surgery: Present: A&Ox3, appropriate, oriented to person, oriented to place, oriented to time, speech is normal, memory intact Exam Initial Vital Signs Temp Pulse Resp BP Pulse Ox 97.9 F 89 20 178/99 99 04/03/17 04:14 04/03/17 04:14 04/03/17 04:14 04/03/17 04:14 04/03/17 04:14 Results - Labs 04/03/17 05:00 04/03/17 05:53 Abnormal lab results WBC 13.1 K/mcL (4.3-11.1) H 04/03/17 05:00 MCH 27.6 pg (28.0-33.3) L 04/03/17 05:00 Neutrophils # 10.3 K/mcL (1.6-8.9) H 04/03/17 05:00 Glucose 110 mg/dL (70-105) H 04/03/17 05:53 Urine Clarity Cloudy (Clear) A 04/03/17 04:15 Urine Protein 30 mg/dL (Neg-Trace) H 04/03/17 04:15 Urine Ketones 80 mg/dL (Negative) H 04/03/17 04:15 Urine Bilirubin Small (Negative) H 04/03/17 04:15 Urine Urobilinogen 2.0 mg/dL (Normal) H 04/03/17 04:15 Ur Leukocyte Esterase Small (Negative) H 04/03/17 04:15 Urine Microscopic RBC 5-15 per hpf (0-3) H 04/03/17 04:15 Urine Microscopic WBC 5-15 per hpf (0-3) H 04/03/17 04:15 Ur Squamous Epith Cells Many per lpf (None-Few) H 04/03/17 04:15 Urine Bacteria Moderate per hpf (None-Few) H 04/03/17 04:15 All other labs normal. - Imaging Chest x-ray: report reviewed CT scan - abdomen: report reviewed CT scan - pelvis: report reviewed Consult Discharge Plan - Plan Referrals: Carlos Bullock MD [Primary Care Provider] - <Adria Godinez - Last Filed: 04/03/17 12:27> Date of Encounter: 04/03/17 Review of Systems All systems PM: A 10-system review of systems was performed and is negative for pertinent findings except as documented above in the HPI. General Surgery Exam Initial Vital Signs Temp Pulse Resp BP Pulse Ox 97.9 F 89 20 178/99 99 04/03/17 04:14 04/03/17 04:14 04/03/17 04:14 04/03/17 04:14 04/03/17 04:14 Exam Initial Vital Signs Temp Pulse Resp BP Pulse Ox 97.9 F 89 20 178/99 99 04/03/17 04:14 04/03/17 04:14 04/03/17 04:14 04/03/17 04:14 04/03/17 04:14 Results - Labs 04/03/17 05:00 04/03/17 05:53 Abnormal lab results WBC 13.1 K/mcL (4.3-11.1) H 04/03/17 05:00 MCH 27.6 pg (28.0-33.3) L 04/03/17 05:00 Neutrophils # 10.3 K/mcL (1.6-8.9) H 04/03/17 05:00 Glucose 110 mg/dL (70-105) H 04/03/17 05:53 Urine Clarity Cloudy (Clear) A 04/03/17 04:15 Urine Protein 30 mg/dL (Neg-Trace) H 04/03/17 04:15 Urine Ketones 80 mg/dL (Negative) H 04/03/17 04:15 Urine Bilirubin Small (Negative) H 04/03/17 04:15 Urine Urobilinogen 2.0 mg/dL (Normal) H 04/03/17 04:15 Ur Leukocyte Esterase Small (Negative) H 04/03/17 04:15 Urine Microscopic RBC 5-15 per hpf (0-3) H 04/03/17 04:15 Urine Microscopic WBC 5-15 per hpf (0-3) H 04/03/17 04:15 Ur Squamous Epith Cells Many per lpf (None-Few) H 04/03/17 04:15 Urine Bacteria Moderate per hpf (None-Few) H 04/03/17 04:15 All other labs normal. - Attending Attestation I have personally performed a face to face evaluation on this patient. I have reviewed and agree with the care plan. History and Exam by me shows: I reviewed the above assessment and evaluation with an is practitioner and agree with the above plan. Patient was previously admitted approximately last week to the same episode of abdominal pain, nausea vomiting, and abdominal distention. She denies ever having had these symptoms in the past. She states she had flatus last yesterday and a small amount of bowel movements yesterday. CT scan demonstrates dilated small bowel with possible transition point in the left lower quadrant. This is likely due to adhesions. Patient is adamantly refusing an NG tube and this may have been a source of the patient's current symptoms (she refused NG tube placement for decompression during her recent admission). Tenderness to palpation in all 4 quadrants scan bowel sounds present. I explained to the patient that the next most appropriate course is to perform an exploration and possible small bowel resection/lysis of adhesion. We will place an NG tube in the OR and I explained to the patient that this will need to be kept in place until it is determined that her bowels are properly functioning following the surgical procedure. Discussed with the patient and she verbalized understanding.
[2017-04-03] MEDS: *HR* FentaNYL (PF) 100 MCG/2 ML VIAL IVP PRN ×2 (11:11→14:52)
[2017-04-03] MEDS: MetroNIDAZOLE 500 MG/100 ML 500 MG/100 ML BAG IVPB SCH ×2 (11:11→23:50)
[2017-04-03] MEDS: 0.9 % Sodium Chloride 1,000 ML IVC SCH (11:12)
--- NOTE | 2017-04-03 16:49 | Anesthesia Evaluation PreOp ---
Date of Encounter: 04/03/17 Time of Encounter: 16:47 - Past History Planned Operation: Exlap Cardiac History: HTN Pulmonary History: THOMPSON Dx HACK DRIVER History: Other (chronic pain) Other Medical History: Diabetes Type II, Other (small bowel) Anesthesia History: No Prior Anesthetic Complications, Past Anesthesia (FEMI, BSO ) Alcohol Use: none Drug use: none Medications and Allergies Lisinopril [Zestril] 5 mg PO DAILY 03/29/17 [History] Gabapentin [Neurontin] 1,600 mg PO QPM 04/03/17 [History] Gabapentin [Neurontin] 800 mg PO QAM 04/03/17 [History] 3 Allergy/AdvReac Type Severity Reaction Status Date / Time Penicillins [PCN] Allergy Difficulty Verified 02/18/15 10:56 Breathing - Meds/Allergy Pre-op Review Medications Reviewed: Yes Allergies Reviewed: Yes Beta Blockers on Current Med List: No Anesthesia Results - Labs 04/03/17 05:00 04/03/17 05:53 - Imaging EKG: report reviewed (sinus bradycardia) Anesthesia Exam Vital Signs/O2 Sat/Glucose, Most Current Temp Pulse Resp BP Pulse Ox 04/03/17 15:55 98.4 F 73 16 187/98 94 Height: 1.68m Weight: 122kg NPO (# of Hours): full stomach/SBO - HEENT Pupil (Motor): Pupils equal, EOMI Mallampati: II Teeth: Normal Oral Opening: Greater than 3 - HACK DRIVER LOC: Oriented HACK DRIVER Motor: Normal RUE, Normal LUE, Normal RLE, Normal LLE, Normal Face HACK DRIVER Sensory: Normal: RUE, LUE, RLE, LLE, Face - Cardiac Rhythm: Regular - Pulmonary Breath Sounds: bilateral Clear Respiratory Effort: Symmetrical Anesthesia Assess/Plan ASA Score: 3 (HTN, DM, BMI 43, THOMPSON) Modified [place] Scale for Level of Consciousness: Anixous, agitated or restless Anesthetic Plan: General (Discussed with the pt that she is at increased risk of pulmonary aspiration due to her Small bowel obstruction and refusal of NG tube for decompression. Plan GETA with RSI, r/b/a discussed, questions answered , consent obtained) Monitoring Plan: Standard Monitors Recovery Plan: PACU
[2017-04-03] MEDS ORDERED: *HR* Rocuronium Bromide 50 MG/5 ML VIAL ONE (16:54)
[2017-04-03] MEDS ORDERED: Dexamethasone 4 MG/ML VIAL ONE (16:54)
[2017-04-03] MEDS ORDERED: Lidocaine -MPF 2% 2 ML VIAL ONE (16:54)
[2017-04-03] MEDS ORDERED: Ondansetron 4 MG/2 ML VIAL ONE (16:54)
[2017-04-03] MEDS ORDERED: *HR* Succinylcholine 200 MG/10 ML VIAL IVP ONE (16:54)
[2017-04-03] MEDS ORDERED: *HR* FentaNYL (PF) 100 MCG/2 ML VIAL ONE ×2 (16:56→17:50)
[2017-04-03] MEDS ORDERED: *HR* Propofol 200 MG/20 ML VIAL IVP ONE (16:56)
[2017-04-03] MEDS ORDERED: MetroNIDAZOLE 500 MG/100 ML 500 MG/100 ML BAG IVPB ONE (17:27)
[2017-04-03] MEDS ORDERED: Levofloxacin 500 MG/100 ML 500 MG/100 ML BAG IVPB ONE (17:30)
[2017-04-03] MEDS ORDERED: Ketamine *HR* 500 MG/10 ML MDV ONE (17:51)
[2017-04-03] MEDS ORDERED: *HR* FentaNYL PATCH 50 MCG PATCH TD ONE (17:58)
[2017-04-03] MEDS ORDERED: *HR* Promethazine 25 MG/ML VIAL IVP PRN (17:59)
[2017-04-03] MEDS ORDERED: *HR* HYDROmorphone 2 MG TABLET PO PRN (17:59)
[2017-04-03] MEDS ORDERED: Neostigmine Methylsulfate 3 MG/3 ML SYRINGE ONE (18:06)
[2017-04-03] MEDS ORDERED: Acetaminophen IV 1,000 MG/100 ML INFUS..BTL ONE (18:07)
--- NOTE | 2017-04-03 18:33 | Operative Note ---
Date of procedure: 04/03/17 Pre-op diagnosis: Small bowel obstruction Post-op diagnosis: other (Partial small bowel obstruction) Procedure: 1. Exploratory celiotomy. 2. Lysis of adhesion. Anesthesia: GETA Surgeon: Adria Godinez Was there an fitness assistant present: Yes Crowning Inspector: Mary Fenton Estimated blood loss (cc): 20 Specimen: none Condition: stable Disposition: PACU Procedure in Detail: Date of surgery: 04/03/17 After properly identifying the patient, the patient was brought to the operating room and placed in the supine position. After proper IV sedation was achieved followed by general endotracheal intubation, the patient's abdomen was prepped and draped in a normal sterile fashion. A timeout was performed noting the patient's name and type of procedure to be performed. The patient had an infraumbilical midline incision and A 15 blade scalpel was used to make an incision several centimeters above the umbilicus inferiorly inclusive of the umbilical midline incision towards the pubic symphysis. Bovie cauterization carried through the subcutaneous tissue into the abdominal fascia was encountered and incised along the length of the midline incision. Bovie cauterization was also used to maintain hemostasis. Examination demonstrated dilated loops of small bowel as well as normal- appearing loops of small bowel consistent with a transition zone somewhere in the lower abdominal region. Abdominal wall retractors were then used to further retract the lateral sides of the abdomen and inspection demonstrated an until it he and down towards the inferior aspect of the abdomen. There was a loop of small bowel that was "twisted" around this segment of the omentum. Bovie cauterization and handheld LigaSure was used to dissect the omentum which allowed for freeing of the twisted loop of small bowel. The transition zone could be easily visualized in this region but there is no evidence of stenosis and no evidence of strangulation of the bowel. The mesentery appeared normal and there was no signs of ischemia. Ascitic fluid was present which was suctioned and the decision was then made to briefly run the small bowel to ensure no other evidence of an abnormality which were not present. The decision was then made to close the abdomen by first placing Seprafilm within the abdomen and closing the abdominal wall fascia with a #1 running looped PDS 2. The subcutaneous tissue was reapproximated with interrupted 20 and 0 Vicryl sutures and the epidermal and dermal layers were reapproximated with chalino. Needle, sponge, and instrument counts were correct 2 and incisions were covered with a gauze. The patient was aroused my V sedation, extubated in the operating room without complication, and transported to the recovery room stable condition.
[2017-04-03] MEDS: MORPHINE SUL Oral CONC 10 MG/0.5 ML ORAL.SYG SL PRN ×2 (18:49→18:58)
[2017-04-03] MEDS: *HR* Labetalol 20 MG/4 ML SYRINGE IVP PRN ×3 (18:53→19:09)
--- NOTE | 2017-04-03 19:59 | Anesthesia Evaluation Post Op ---
Date of Encounter: 04/03/17 Time of Encounter: 19:29 - Vital Signs Vital Signs: Last Vital Signs Temp 99.7 F H 04/03/17 19:41 Pulse 66 04/03/17 19:41 Resp 18 04/03/17 19:41 BP 152/94 04/03/17 19:41 Pulse Ox 92 04/03/17 19:41 - Lungs Lungs: Clear Ascult./Percussion - Airway Airway: Non-obstructed - Cardiovascular Regular Rate - Mental Status Mental Status: Alert & Oriented, Answers Appropriately - Pain Pain Scale: 4 - Nausea Vomiting Nausea Vomiting: Not Present - Hydration Hydration: NPO - Discharge PostOp Status: Transfer Patient to floor
[2017-04-03] MEDS ORDERED: 0.9 % Sodium Chloride 1,000 ML IVC SCH (20:19)
[2017-04-03] MEDS ORDERED: Naloxone 0.4 MG/ML INJ IVP PRN (20:19)
[2017-04-03] MEDS: OXYCODONE Oral CONC 10 MG/0.5 ML ORAL.SYG SL PRN (21:07)
[2017-04-04] MEDS ORDERED: Ketorolac 30 MG/ML VIAL IM SCH
[2017-04-04] MEDS: OXYCODONE Oral CONC 10 MG/0.5 ML ORAL.SYG SL PRN (05:00)
[2017-04-04] MEDS: *HR* Heparin 5,000 UNIT/ML VIAL SQ SCH ×2 (05:27→16:58)
[2017-04-04 05:43] LABS: Basophils % 0.1 %; Eosinophils % 0.1 %; Hematocrit 37.6 % (35.3-44.9); Immature Granulocytes % 0.6 % (0-4); Lymphocytes # 1.8 K/mcL (0.6-4.6); Lymphocytes % 13.1 %; Mean Corpuscular HGB Conc 32.4 g/dL (31.6-35.5); Mean Corpuscular Volume 86.4 fL (83.0-100.0); Mean Platelet Volume 10.5 fL (9.4-12.4); Monocytes # 1.1 K/mcL (0.0-1.3); Monocytes % 7.9 %; Neutrophils # 10.9 K/mcL (1.6-8.9); Platelet Count 299 K/mcL (140-400); Red Blood Count 4.35 M/mcL (3.82-4.97); Red Cell Distribution Width 13.6 % (11.5-14.5); Segmented Neutrophils % 78.2 %
[2017-04-04 06:06] LABS: Hemoglobin 12.2 g/dL (11.5-15.4)
[2017-04-04 06:14] LABS: BUN/Creatinine Ratio 19 (6-26); Blood Urea Nitrogen 11 mg/dL (6-20); Carbon Dioxide 24 mEq/L (23-29); Chloride 106 mEq/L (98-107); Glucose 102 mg/dL (70-105); Osmolality,Calculated 286 (280-300); Potassium 3.4 mEq/L (3.5-5.1); Sodium 138 mEq/L (136-145); eGFR For African Americans > 60 (> 60); eGFR For Non-African Americans > 60 (> 60)
[2017-04-04] MEDS: MetroNIDAZOLE 500 MG/100 ML 500 MG/100 ML BAG IVPB SCH ×2 (09:01→15:47)
[2017-04-04] MEDS: Pantoprazole 40 MG VIAL IVP SCH (09:01)
[2017-04-04] MEDS ORDERED: Ketorolac 30 MG/ML VIAL IVP PRN (09:03)
[2017-04-04] MEDS ORDERED: Acetaminophen IV 1,000 MG/100 ML INFUS..BTL IVPB ONE (14:16)
[2017-04-04] MEDS ORDERED: Scopolamine Patch 1.5 MG PATCH.TD72 TD ONE (14:19)
--- NOTE | 2017-04-04 14:22 | Internal Med Progress Note ---
Date of Encounter: 04/04/17 Time of Encounter: 14:19 - Assessment and plan (1) Abdominal pain Current Visit: No Status: Acute Assessment and plan: Abdomen pain is much better Qualifiers: Abdominal location: generalized Qualified Code(s): R10.84 - Generalized abdominal pain (2) Diabetes Current Visit: No Status: Chronic Assessment and plan: Chronic we will continue sliding scale Qualifiers: Diabetes mellitus type: type 2 Diabetes mellitus complication status: without complication Diabetes mellitus [facility] insulin use: without [facility] use Qualified Code(s): E11.9 - Type 2 diabetes mellitus without complications (3) Hypertension Current Visit: No Status: Chronic Assessment and plan: Chronic and well controlled Qualifiers: Hypertension type: essential hypertension Qualified Code(s): I10 - Essential (primary) hypertension (4) Small bowel obstruction Current Visit: Yes Status: Acute Assessment and plan: High-grade small bowel obstruction status post surgery of adhesion lysis yesterday NG tube is in place - Subjective Interval history: Patient with history of morbid obesity, hypertension, diabetes, patient was admitted with severe abdominal pain nausea vomiting found to have high-grade small bowel obstruction patient underwent surgery last night of adhesion lysis today she says she feels better and shehas NG in place passed gas no bowel movement yet - Constitutional Vitals: Temp Pulse Resp BP Pulse Ox 99.8 F H 69 16 146/86 94 04/04/17 12:35 04/04/17 12:35 04/04/17 12:35 04/04/17 12:35 04/04/17 12:35 General appearance: Present: A&O X 3, morbidly obese, severe distress - Eye Eye exam: Present: PERRL, conjuntiva pink, sclera anicteric Pupils: Present: PERRL - Neck Neck exam general surgery: Present: supple, trachea midline. Absent: lymphadenopathy - Respiratory Respiratory exam: Present: CTAB. Absent: accessory muscle use, rales, rhonchi, wheezes - Cardiovascular Cardiovascular exam: Present: RRR, +S1, +S2. Absent: diastolic murmur, gallop, rubs, systolic murmur - GI/Abdominal GI/Abdominal exam: Present: soft Internal Medicine: Result - Labs CBC & Chem 7: 04/04/17 04:18 04/04/17 04:18 Labs: Short CBC 04/04/17 Range/Units 04:18 WBC 14.0 H (4.3-11.1) K/mcL Hgb 12.2 D (11.5-15.4) g/dL Hct 37.6 (35.3-44.9) % Plt Count 299 (140-400) K/mcL Neutrophils # 10.9 H (1.6-8.9) K/mcL BMP 04/04/17 04:18 Sodium 138 Potassium 3.4 L Chloride 106 Carbon Dioxide 24 BUN 11 Creatinine 0.57 L Glucose 102 Calcium 8.0 L - ABG Interpretation ABG results: PT/INR, D-dimer PT 10.9 Seconds (9.4-12.1) 04/03/17 07:52 - VTE Documentation of Mechanical Device: Intermittent pneumatic compression device Consult Discharge Plan - Plan Referrals: Carlos Bullock MD [Primary Care Provider] -
[2017-04-04] MEDS ORDERED: Morphine Oral CONC 5 MG/0.25 ML ORAL.SYG PO PRN (15:25)
--- NOTE | 2017-04-04 15:30 | General Surgery Progress Note ---
<RebelMatilda Darcy - Last Filed: 04/04/17 15:36> Date of Encounter: 04/04/17 Time of Encounter: 12:00 - Assessment and Plan (1) Small bowel obstruction Current Visit: Yes Status: Acute Date of procedure: 04/03/17 Pre-op diagnosis: Small bowel obstruction Post-op diagnosis: other (Partial small bowel obstruction) Procedure: 1. Exploratory celiotomy. 2. Lysis of adhesion. Anesthesia: ANDREA Pt states she is using her IS and sat up at the side of bed; however, per bedside RN she is refusing to use her incentive spirometry and is refusing to get out of bed. We did review with patient the need for aggressive pulmonary toileting and out of bed to chair at least 3 times daily and ambulate in the hallway. Plan: NPO continue NG tube. DC Chavez out of bed to chair TID and ambulate in the halls TID. May clamp NG tube for up to 30 minutes for ambulation. Will limit narcotic use in an effort to facilitate recovery of bowel function. Use toradol and IV Ofirmev 1st. Sublingual narcotics only if these are not sufficient. continue G.I. and DVT prophylaxis Continue IV ATBX Cipro and Flagyl Continue IV fluids Consult RT for aggressive pulmonary toileting (2) Nonadherence to medical treatment Current Visit: Yes Status: Acute Pt reports and nursing assessments continue to be discrepant See assessment and plan above (3) Abdominal pain Current Visit: No Status: Acute See A/P above. Primary team managing total hospital course Qualifiers: Abdominal location: generalized Qualified Code(s): R10.84 - Generalized abdominal pain (4) Diabetes Current Visit: No Status: Chronic Qualifiers: Diabetes mellitus type: type 2 Diabetes mellitus complication status: without complication Diabetes mellitus residential insulin use: without fertilizer mixer use Qualified Code(s): E11.9 - Type 2 diabetes mellitus without complications (5) Hypertension Current Visit: No Status: Chronic Qualifiers: Hypertension type: essential hypertension Qualified Code(s): I10 - Essential (primary) hypertension Subjective Patient reports: still having pain, voiding w/o difficulty (per chavez), no flatus, no bowel movement, nausea, afebrile Objective Vital Signs - Last 8 Hours Temp Pulse Resp BP Pulse Ox 04/04/17 12:35 99.8 F H 69 16 146/86 94 04/04/17 09:11 95 04/04/17 08:08 97.8 F 77 16 124/96 95 Intake and Output 04/03/17 04/04/17 04/04/17 23:59 07:59 15:59 Intake Total 100 / 100 0 / 0 Output Total 120 / 120 450 / 450 600 / 600 Balance -120 / -120 -350 / -350 -600 / -600 Intake: IV Fluids 100 / 100 Flagyl Premix 500 MG/100 ML 500 100 / 100 mg In 100 ml @ 100 mls/hr IVPB Q8HR [facility] Rx#:[id number] Oral 0 / 0 0 / 0 Output: Estimated Blood Loss 20 / 20 Urine Amount (Catheter) 100 / 100 Catheter 200 / 200 350 / 350 Gastric Drainage 250 / 250 250 / 250 Other: Meal npo Percent of Meal Consumed 0% Weight 122.55 kg Blood Glucose* 89 Patient Weight 04/04/17 23:59 Weight 122.55 kg - General physical appearance no distress, other (Drowsy.) - Eyes normal ocular movement - ENT normal nares (NG tube noted in the left nares), atraumatic, normocephalic - Neck Neck exam: trachea midline, no venous distension - Respiratory other (Decreased bilateral) - Cardiovascular Cardiovascular exam: Present: distant heart sounds - Abdomen Abdomen: Present: soft, tender (Expected postoperative). Absent: bowel sounds present Hernia: none - Integumentary no abnormal pigmentation - Neurologic other (Drowsy) - Musculoskeletal other (Reclined in bed. Refuses to get out of bed) - Psychiatric oriented to time, oriented to person, oriented to place - Labs 04/04/17 04:18 04/04/17 04:18 Diabetes panel 04/04/17 Range/Units 04:18 Sodium 138 (136-145) mEq/L Potassium 3.4 L (3.5-5.1) mEq/L Chloride 106 (98-107) mEq/L Carbon Dioxide 24 (23-29) mEq/L BUN 11 (6-20) mg/dL Creatinine 0.57 L (0.60-1.20) mg/dL Glucose 102 (70-105) mg/dL Calcium 8.0 L (8.6-10.3) mg/dL Calcium panel 04/04/17 Range/Units 04:18 Calcium 8.0 L (8.6-10.3) mg/dL Pituitary panel 04/04/17 Range/Units 04:18 Sodium 138 (136-145) mEq/L Potassium 3.4 L (3.5-5.1) mEq/L Chloride 106 (98-107) mEq/L Carbon Dioxide 24 (23-29) mEq/L BUN 11 (6-20) mg/dL Creatinine 0.57 L (0.60-1.20) mg/dL Glucose 102 (70-105) mg/dL Calcium 8.0 L (8.6-10.3) mg/dL Adrenal panel 04/04/17 Range/Units 04:18 Sodium 138 (136-145) mEq/L Potassium 3.4 L (3.5-5.1) mEq/L Chloride 106 (98-107) mEq/L Carbon Dioxide 24 (23-29) mEq/L BUN 11 (6-20) mg/dL Creatinine 0.57 L (0.60-1.20) mg/dL Glucose 102 (70-105) mg/dL Calcium 8.0 L (8.6-10.3) mg/dL - VTE Documentation of Mechanical Device: Intermittent pneumatic compression device Consult Discharge Plan - Plan Instructions: Lysis of Abdominal Adhesions (DC) Additional Instructions: General Surgical Discharge Instructions 1. No pushing, pulling, or lifting greater than 15 lbs for 6 weeks. 2. You may shower beginning today, but no tub baths, soaking, or swimming for 2 weeks. 3. You may resume driving when you are off narcotics and are safe to react in a car. 4. Take ibuprofen every 8 hours for discomfort. If this does not relieve discomfort, you may take the as needed Percocet. Take narcotics only as directed. Do not take more narcotics then directed and do not share your narcotics with any other person. Do not drink alcohol while on narcotics. 5. Take stool softeners (Colace) or a water based laxative (Miralax) while taking narcotics. You may hold for loose stools. 6. Report any fevers greater than 100.5F, increase abdominal discomfort, drainage that looks like pus, increased redness or pain at the surgical site, or any vomiting. 7. Report any pain in the calves, shortness of breath, or rapid heartbeat. 8. Follow-up in the office as directed. 9. If you were prescribed antibiotics, do not stop them without talking to your provider. 10. Wound care: Remove dressing and packing. Shower with antibacterial soap. Repack with 1/4 inch plain gauze for wicking purposes. Cover with a dry dressing. Tape to secure. 11. Home health for wound packing (see instructions above). Work release tentatively for 05/19/2017. Referrals: Carlos Bullock MD [Primary Care Provider] - Matilda Luque CNP [Advanced Practice Nurse] - 04/25/17 9:20 am Prescriptions: Ondansetron ODT [Zofran ODT] 4 mg SL Q4HR PRN #15 tab.rapdis PRN Reason: Postsurgical nausea OxyCODONE/APAP 5/325 [Percocet 5/325 MG] 1 each PO Q6HR PRN 7 Days #28 tablet PRN Reason: Postsurgical pain Adhesive Tape [Paper Tape] 2 - 4 each TP BID #2 tape Docusate Sodium [Colace] 100 mg PO BID PRN #30 capsule PRN Reason: Contstipation Gauze Bandage [Gauze Pads] 2 each TP QDPC #60 bandage Ibuprofen 800 mg PO Q8H PRN #30 tablet PRN Reason: Postsurgical pain Polyhexam Biguan/Gauze Bandage [Curity Amd Packing Strips] 1 each TP QDPC #1 bottle <HerbertAdria M - Last Filed: 04/08/17 13:07> Date of Encounter: 04/04/17 Objective Vital Signs - Last 8 Hours Temp Pulse Resp BP Pulse Ox 04/08/17 07:49 98.2 F 58 16 144/89 93 Intake and Output 04/07/17 04/08/17 04/08/17 23:59 07:59 15:59 Intake Total 1820 / 1820 300 / 300 Output Total 900 / 900 0 / 0 Balance 920 / 920 300 / 300 Intake: IV Fluids 1100 / 1100 300 / 300 D5% And 0.45% Nacl 1000 Ml Bag 1000 / 1000 1,000 ML @ 75 mls/hr IVC . [id number] [facility] Rx#:[id number] Cipro Premix 400 MG/200 ML 400 200 / 200 mg In 200 ml @ 200 mls/hr IVPB Q12H [facility] Rx#:[id number] Flagyl Premix 500 MG/100 ML 500 100 / 100 100 / 100 mg In 100 ml @ 100 mls/hr IVPB Q8H [facility] Rx#:[id number] Oral 720 / 720 0 / 0 Output: Urine 0 / 0 0 / 0 Stool 900 / 900 Other: Percent of Meal Consumed 0% Stool Size Moderate Stool Consistency liquid Stool Color Brown Green Weight 120.7 kg Blood Glucose* 224 86 Patient Weight 04/08/17 23:59 Weight 120.7 kg - Labs 04/08/17 07:31 04/08/17 07:31 Diabetes panel 04/08/17 Range/Units 07:31 Sodium 138 (136-145) mEq/L Potassium 3.1 L (3.5-5.1) mEq/L Chloride 105 (98-107) mEq/L Carbon Dioxide 26 (23-29) mEq/L BUN 9 (6-20) mg/dL Creatinine 0.59 L (0.60-1.20) mg/dL Glucose 101 (70-105) mg/dL Calcium 8.1 L (8.6-10.3) mg/dL Calcium panel 04/08/17 Range/Units 07:31 Calcium 8.1 L (8.6-10.3) mg/dL Pituitary panel 04/08/17 Range/Units 07:31 Sodium 138 (136-145) mEq/L Potassium 3.1 L (3.5-5.1) mEq/L Chloride 105 (98-107) mEq/L Carbon Dioxide 26 (23-29) mEq/L BUN 9 (6-20) mg/dL Creatinine 0.59 L (0.60-1.20) mg/dL Glucose 101 (70-105) mg/dL Calcium 8.1 L (8.6-10.3) mg/dL Adrenal panel 04/08/17 Range/Units 07:31 Sodium 138 (136-145) mEq/L Potassium 3.1 L (3.5-5.1) mEq/L Chloride 105 (98-107) mEq/L Carbon Dioxide 26 (23-29) mEq/L BUN 9 (6-20) mg/dL Creatinine 0.59 L (0.60-1.20) mg/dL Glucose 101 (70-105) mg/dL Calcium 8.1 L (8.6-10.3) mg/dL - Attending Attestation I have personally performed a face to face evaluation on this patient. I have reviewed and agree with the care plan. History and Exam by me shows: I reviewed the above and agree with the above plan.
[2017-04-04] MEDS: Ondansetron 4 MG/2 ML VIAL IVP SCH ×2 (15:47→22:05)
[2017-04-04] MEDS: Ketorolac 15 MG/ML VIAL IVP SCH (16:58)
[2017-04-04] MEDS ORDERED: *HR* Morphine Soln 10 MG/5 ML UDC PO PRN (17:30)
[2017-04-04] MEDS: Ipratropium/Albuterol Neb 3 ML IH SCH ×3 (19:35→23:23)
[2017-04-05] MEDS: MetroNIDAZOLE 500 MG/100 ML 500 MG/100 ML BAG IVPB SCH ×4 (00:56→22:40)
[2017-04-05] MEDS: Ketorolac 15 MG/ML VIAL IVP SCH ×4 (00:57→17:52)
[2017-04-05] MEDS: Ipratropium/Albuterol Neb 3 ML IH SCH ×5 (03:17→20:24)
[2017-04-05] MEDS: Ondansetron 4 MG/2 ML VIAL IVP SCH ×6 (03:58→22:43)
[2017-04-05] MEDS: *HR* Heparin 5,000 UNIT/ML VIAL SQ SCH ×2 (05:41→17:52)
[2017-04-05] MEDS: Pantoprazole 40 MG VIAL IVP SCH (08:27)
--- NOTE | 2017-04-05 11:25 | Internal Med Progress Note ---
Date of Encounter: 04/05/17 Time of Encounter: 11:23 - Assessment and plan (1) Abdominal pain Current Visit: No Status: Acute Assessment and plan: Abdominal pain has resolved Qualifiers: Abdominal location: generalized Qualified Code(s): R10.84 - Generalized abdominal pain (2) Diabetes Current Visit: No Status: Chronic Assessment and plan: Chronic we will continue home medication and sliding-scale Qualifiers: Diabetes mellitus type: type 2 Diabetes mellitus complication status: without complication Diabetes mellitus assisted insulin use: without assisted use Qualified Code(s): E11.9 - Type 2 diabetes mellitus without complications (3) Hypertension Current Visit: No Status: Chronic Assessment and plan: Chronic and well-controlled Qualifiers: Hypertension type: essential hypertension Qualified Code(s): I10 - Essential (primary) hypertension (4) Small bowel obstruction Current Visit: Yes Status: Acute Assessment and plan: NG tube in place status post surgery - Subjective Interval history: Patient with history of morbid obesity, hypertension, diabetes, patient was admitted with severe abdominal pain nausea vomiting found to have high-grade small bowel obstruction patient underwent surgery last night of adhesion lysis today she says she feels better and shehas NG in place passed gas no bowel movement yet Patient is seen today since she is doing better still has NG in place - Constitutional Vitals: Temp Pulse Resp BP Pulse Ox 97.6 F 62 15 136/82 93 04/05/17 07:18 04/05/17 07:18 04/05/17 07:18 04/05/17 07:18 04/05/17 07:18 General appearance: Present: A&O X 3, morbidly obese, severe distress - Eye Eye exam: Present: PERRL, conjuntiva pink, sclera anicteric Pupils: Present: PERRL - Neck Neck exam general surgery: Present: supple, trachea midline. Absent: lymphadenopathy - Respiratory Respiratory exam: Present: CTAB. Absent: accessory muscle use, rales, rhonchi, wheezes - Cardiovascular Cardiovascular exam: Present: RRR, +S1, +S2. Absent: diastolic murmur, gallop, rubs, systolic murmur Internal Medicine: Result - Labs CBC & Chem 7: 04/04/17 04:18 04/04/17 04:18 - ABG Interpretation ABG results: PT/INR, D-dimer PT 10.9 Seconds (9.4-12.1) 04/03/17 07:52 - VTE Documentation of Mechanical Device: Venous foot pump, device Consult Discharge Plan - Plan Referrals: Carlos Bullock MD [Primary Care Provider] -
--- NOTE | 2017-04-05 13:03 | General Surgery Progress Note ---
Date of Encounter: 04/05/17 Time of Encounter: 13:00 - Assessment and Plan (1) Small bowel obstruction Current Visit: Yes Status: Acute POD #2 s/p ex lap, HARRY 2/2 SBO; no bowel function cont with NG tube; monitor output activity as tolerated: OOBTC, ambulate IS usage as needed keep NPO: awaiting return of bowel function Subjective Patient reports: no new complaints, feels better, no flatus, no bowel movement, afebrile Objective Vital Signs - Last 8 Hours Temp Pulse Resp BP Pulse Ox 04/05/17 11:39 98.9 F 69 14 131/84 93 04/05/17 07:18 97.6 F 62 15 136/82 93 Intake and Output 04/04/17 04/05/17 04/05/17 23:59 07:59 15:59 Intake Total 300 / 300 100 / 100 0 / 0 Output Total 0 / 0 100 / 100 Balance 300 / 300 0 / 0 0 / 0 Intake: IV Fluids 300 / 300 100 / 100 Cipro Premix 400 MG/200 ML 400 200 / 200 mg In 200 ml @ 200 mls/hr IVPB Q12HR [facility] Rx#:[id number] Flagyl Premix 500 MG/100 ML 500 100 / 100 100 / 100 mg In 100 ml @ 100 mls/hr IVPB Q8HR [facility] Rx#:[id number] Oral 0 / 0 0 / 0 0 / 0 Output: Urine 0 / 0 100 / 100 Other: Meal NPO Percent of Meal Consumed 0% # Voids 1 0 0 Blood Glucose* 86 74 78 - General physical appearance no distress - ENT normocephalic - Respiratory normal expansion, normal respiratory effort - Cardiovascular Cardiovascular exam: Present: RRR - Abdomen Abdomen: Present: soft, tender (appropriately tender along incision) - Integumentary no rash - Neurologic CN 2-12 grossly intact - Psychiatric oriented to time, oriented to person, oriented to place - Labs 04/04/17 04:18 04/04/17 04:18 - VTE Documentation of Mechanical Device: Venous foot pump, device Consult Discharge Plan - Plan Referrals: Carlos Bullock MD [Primary Care Provider] -
[2017-04-05] MEDS ORDERED: 0.9 % Sodium Chloride 250 ML ONE (14:53)
[2017-04-05] MEDS: 0.9 % Sodium Chloride 250 ML IVC SCH (15:47)
[2017-04-05] MEDS: 0.9 % Sodium Chloride 1,000 ML IVC SCH (22:40)
[2017-04-06] MEDS: Ondansetron 4 MG/2 ML VIAL IVP SCH ×6 (00:05→22:23)
[2017-04-06] MEDS: Ketorolac 15 MG/ML VIAL IVP SCH ×4 (00:06→17:24)
[2017-04-06] MEDS: MetroNIDAZOLE 500 MG/100 ML 500 MG/100 ML BAG IVPB SCH ×3 (00:06→17:24)
[2017-04-06] MEDS: Ipratropium/Albuterol Neb 3 ML IH SCH ×5 (00:30→22:58)
[2017-04-06] MEDS: 0.9 % Sodium Chloride 250 ML IVC SCH ×2 (04:10→19:00)
[2017-04-06] MEDS: *HR* Heparin 5,000 UNIT/ML VIAL SQ SCH ×2 (05:27→17:24)
[2017-04-06 07:52] LABS: Hematocrit 35.1 % (35.3-44.9); Hemoglobin 11.2 g/dL (11.5-15.4); Mean Corpuscular HGB Conc 31.9 g/dL (31.6-35.5); Mean Corpuscular Volume 87.8 fL (83.0-100.0); Mean Platelet Volume 10.4 fL (9.4-12.4); Platelet Count 285 K/mcL (140-400); Red Cell Distribution Width 13.3 % (11.5-14.5)
[2017-04-06 07:57] LABS: BUN/Creatinine Ratio 26 (6-26); Blood Urea Nitrogen 15 mg/dL (6-20); Calcium 8.2 mg/dL (8.6-10.3); Carbon Dioxide 27 mEq/L (23-29); Chloride 102 mEq/L (98-107); Glucose 95 mg/dL (70-105); Osmolality,Calculated 281 (280-300); Potassium 3.7 mEq/L (3.5-5.1); Sodium 135 mEq/L (136-145); eGFR For African Americans > 60 (> 60); eGFR For Non-African Americans > 60 (> 60)
[2017-04-06] MEDS: 0.9 % Sodium Chloride 1,000 ML IVC SCH ×2 (08:38→17:37)
[2017-04-06] MEDS: Pantoprazole 40 MG VIAL IVP SCH (08:39)
--- NOTE | 2017-04-06 12:22 | General Surgery Progress Note ---
Date of Encounter: 04/06/17 Time of Encounter: 12:20 - Assessment and Plan (1) Small bowel obstruction Current Visit: Yes Status: Acute POD #3 s/p ex lap, HARRY 2/2 SBO; no bowel function cont with NG tube; monitor output activity as tolerated: OOBTC, ambulate IS usage as needed keep NPO: awaiting return of bowel function Subjective Patient reports: no new complaints, feels better, other (having appetite; still awaiting return of bowel function) Objective Vital Signs - Last 8 Hours Temp Pulse Resp BP Pulse Ox 04/06/17 11:36 98 F 62 15 148/101 93 04/06/17 06:40 97.7 F 57 14 142/89 93 Intake and Output 04/05/17 04/06/17 04/06/17 23:59 07:59 15:59 Intake Total 200 / 200 400 / 400 0 / 0 Output Total 0 / 0 800 / 800 Balance 200 / 200 -400 / -400 0 / 0 Intake: IV Fluids 200 / 200 300 / 300 Cipro Premix 400 MG/200 ML 400 200 / 200 mg In 200 ml @ 200 mls/hr IVPB Q12HR [facility] Rx#:[id number] Flagyl Premix 500 MG/100 ML 500 100 / 100 100 / 100 mg In 100 ml @ 100 mls/hr IVPB Q8HR [facility] Rx#:[id number] Potassium Chloride 10 mEq/100mL 100 / 100 10 meq In 100 ml @ 100 mls/hr IVPB Q1H [facility] Rx#:[id number] Oral 0 / 0 100 / 100 0 / 0 Output: Urine 0 / 0 100 / 100 Gastric Drainage 700 / 700 Other: Meal NPO # Voids 1 Weight 122.54 kg Blood Glucose* 72 74 71 Patient Weight 04/06/17 23:59 Weight 122.54 kg - General physical appearance no distress - ENT normocephalic - Respiratory normal expansion, normal respiratory effort - Cardiovascular Cardiovascular exam: Present: RRR - Abdomen Abdomen: Present: soft, tender (appropriately tender) - Incision Incision: Present: clean and dry, intact - Integumentary no rash - Neurologic CN 2-12 grossly intact - Psychiatric oriented to time - Labs 04/06/17 06:56 04/06/17 06:56 Diabetes panel 04/06/17 Range/Units 06:56 Sodium 135 L (136-145) mEq/L Potassium 3.7 (3.5-5.1) mEq/L Chloride 102 (98-107) mEq/L Carbon Dioxide 27 (23-29) mEq/L BUN 15 (6-20) mg/dL Creatinine 0.57 L (0.60-1.20) mg/dL Glucose 95 (70-105) mg/dL Calcium 8.2 L (8.6-10.3) mg/dL Calcium panel 04/06/17 Range/Units 06:56 Calcium 8.2 L (8.6-10.3) mg/dL Pituitary panel 04/06/17 Range/Units 06:56 Sodium 135 L (136-145) mEq/L Potassium 3.7 (3.5-5.1) mEq/L Chloride 102 (98-107) mEq/L Carbon Dioxide 27 (23-29) mEq/L BUN 15 (6-20) mg/dL Creatinine 0.57 L (0.60-1.20) mg/dL Glucose 95 (70-105) mg/dL Calcium 8.2 L (8.6-10.3) mg/dL Adrenal panel 04/06/17 Range/Units 06:56 Sodium 135 L (136-145) mEq/L Potassium 3.7 (3.5-5.1) mEq/L Chloride 102 (98-107) mEq/L Carbon Dioxide 27 (23-29) mEq/L BUN 15 (6-20) mg/dL Creatinine 0.57 L (0.60-1.20) mg/dL Glucose 95 (70-105) mg/dL Calcium 8.2 L (8.6-10.3) mg/dL - VTE Documentation of Mechanical Device: Intermittent pneumatic compression device Consult Discharge Plan - Plan Referrals: Carlos Bullock MD [Primary Care Provider] -
--- NOTE | 2017-04-06 15:55 | Internal Med Progress Note ---
Date of Encounter: 04/06/17 Time of Encounter: 15:52 - Assessment and plan (1) Small bowel obstruction Current Visit: Yes Status: Acute Assessment and plan: Stable status post Exploratory celiotomy and Lysis of adhesion. NG tube in place no BM and passing gas (2) Diabetes Current Visit: No Status: Chronic Assessment and plan: Chronic we will continue home medication and sliding-scale Qualifiers: Diabetes mellitus type: type 2 Diabetes mellitus complication status: without complication Diabetes mellitus buttermaker helper insulin use: without fdc use Qualified Code(s): E11.9 - Type 2 diabetes mellitus without complications (3) Hypertension Current Visit: No Status: Chronic Assessment and plan: Chronic and well-controlled Qualifiers: Hypertension type: essential hypertension Qualified Code(s): I10 - Essential (primary) hypertension (4) Morbid obesity due to excess calories Current Visit: Yes Status: Acute - Subjective Interval history: Patient is a 51 years old female who has history of diabetes hypertension admitted on April 03 for small bowel obstruction she had to expiratory Exploratory celiotomy Lysis of adhesion on 04/03. She is postoperative day 3 still has no bowel function. NG has been draining dark fluids. She feels weak , and hungry want to have food. Afebrile white cells training down. - Constitutional Vitals: Temp Pulse Resp BP Pulse Ox 97.6 F 60 15 124/67 93 04/06/17 15:10 04/06/17 15:10 04/06/17 15:10 04/06/17 15:10 04/06/17 15:10 General appearance: Present: A&O X 3, morbidly obese, severe distress Exam: CONSTITUTIONAL: patient appears as an age appropriate female in no acute distress. EYES Clear sclerae, bilateral pupils are equal, reactive to light. EMOI. RESPIRATORY: No accessory muscle use, bilateral clear to auscultation, no wheezing, no crackles/rales. CARDIOVASCULAR: Regular heart rate, normal S1 and S2, no murmurs GASTROINTESTINAL: bowel sounds present, soft, no tenderness. MUSCULOSKELETAL: Joints in normal range of motion, no clubbing, no edema, no cyanosis. Bilateral peripheral pulses 2+. NEUROLOGIC: CN II to XII are grossly intact, no focal neurological deficit. Internal Medicine: Result - Labs CBC & Chem 7: 04/06/17 06:56 04/06/17 06:56 Labs: Short CBC 04/06/17 Range/Units 06:56 WBC 9.6 (4.3-11.1) K/mcL Hgb 11.2 L (11.5-15.4) g/dL Hct 35.1 L (35.3-44.9) % Plt Count 285 (140-400) K/mcL BMP 04/06/17 06:56 Sodium 135 L Potassium 3.7 Chloride 102 Carbon Dioxide 27 BUN 15 Creatinine 0.57 L Glucose 95 Calcium 8.2 L - ABG Interpretation ABG results: PT/INR, D-dimer PT 10.9 Seconds (9.4-12.1) 04/03/17 07:52 - VTE Documentation of Mechanical Device: Intermittent pneumatic compression device Consult Discharge Plan - Plan Referrals: Carlos Bullock MD [Primary Care Provider] -
--- NOTE | 2017-04-06 17:32 | Electrocardiograph Report ---
[address] [place], [place] [address] Test Date: 2017-04-03 Pat Name: Jenny Rojas Department: 102 Room: 3A47 Gender: F Para Professional: : 1965 Requested By: Messi Waldrop Order Number: [id number] Reading MD: Jerri Harley Measurements Intervals [place] Rate: 61 P: 49 DC: 147 QRS: 15 QRSD: 110 T: 20 QT: 438 QTc: 441 Interpretive Statements SINUS RHYTHM Electronically Signed On 04-06-2017 17:30:17 EST by Jerri Harley
[2017-04-07] MEDS: Ipratropium/Albuterol Neb 3 ML IH SCH ×4 (01:02→11:04)
[2017-04-07] MEDS: 0.9 % Sodium Chloride 250 ML IVC SCH ×2 (03:15→19:11)
[2017-04-07] MEDS: 0.9 % Sodium Chloride 1,000 ML IVC SCH ×2 (03:16→19:12)
[2017-04-07] MEDS: Ondansetron 4 MG/2 ML VIAL IVP SCH ×4 (03:16→12:55)
[2017-04-07] MEDS: *HR* Heparin 5,000 UNIT/ML VIAL SQ SCH ×2 (05:34→18:19)
[2017-04-07] MEDS: Ketorolac 15 MG/ML VIAL IVP SCH ×5 (07:48→23:46)
[2017-04-07] MEDS: MetroNIDAZOLE 500 MG/100 ML 500 MG/100 ML BAG IVPB SCH ×4 (07:48→21:30)
--- NOTE | 2017-04-07 08:14 | General Surgery Progress Note ---
<Matilda Luque Darcy - Last Filed: 04/07/17 12:09> Date of Encounter: 04/07/17 Time of Encounter: 07:45 - Assessment and Plan (1) Small bowel obstruction Current Visit: Yes Status: Acute Date of procedure: 04/03/17 Pre-op diagnosis: Small bowel obstruction Post-op diagnosis: other (Partial small bowel obstruction) Procedure: 1. Exploratory celiotomy. 2. Lysis of adhesion. Anesthesia: GETA POD # 4 as above She states her abdominal discomfort is overall control. There is one area notable for dehiscence just inferior to the umbilicus. There is serous drainage noted. I did pack this area lightly with 1/4 inch playing gauze for waking purposes only. There are no signs of infection noted. She states she has not been out of bed to ambulate. She is somewhat frustrated today stating that she is hungry. She however does continue to deny flatus, bowel movement, or nausea and vomiting. Did strongly reinforce the need for ambulation and getting out of bed to chair for encouragement of bowel function. Plan: Will obtain KUB to verify NG placement. If NG is adequately placed may give Gastro graph and through NG. Will obtain small bowel follow-through to evaluate small bowel instruction versus ileus in the postoperative setting and absence of bowel sounds. Continue supportive care and discomfort management while awaiting return of bowel function continue NG to low intermittent wall suction; make lamp for 30 minutes at a time so that patiently ambulate in the halls at least 3 times daily. Out of bed to chair at least 3 times daily NPO continue NG tube. Limit narcotic use in an effort to facilitate recovery of bowel function. Use toradol and IV Ofirmev 1st. Sublingual narcotics only if these are not sufficient. continue G.I. and DVT prophylaxis Continue IV ATBX Cipro and Flagyl Will consider TPN tomorrow if unable to regain bowel function today Albumin and prealbumin labs ordered Continue aggressive pulmonary toileting AM labs pending UPDATE 1209: SBFT unremarkable. Transit to colon in 30 mins. Pt did have liquid BM upon returning to room (witnessed per RN). May clamp NG and give clears. If she tolerates clears, will d/c NG. May return to [facility]WS if having nausea or vmintg. Relistor d/c'd as pt having liquid stool. (2) Nonadherence to medical treatment Current Visit: Yes Status: Acute Pt reports and nursing assessments continue to be discrepant See assessment and plan above (3) Abdominal pain Current Visit: Yes Status: Acute See A/P above. Primary team managing total hospital course Qualifiers: Abdominal location: generalized Qualified Code(s): R10.84 - Generalized abdominal pain (4) Diabetes Current Visit: No Status: Chronic I did stop 0.9NS and added D5.45 in the setting of low blood sugars. Further management per primary team Qualifiers: Diabetes mellitus type: type 2 Diabetes mellitus complication status: without complication Diabetes mellitus ad terminal makeup operator insulin use: without ad terminal makeup operator use Qualified Code(s): E11.9 - Type 2 diabetes mellitus without complications (5) Hypertension Current Visit: Yes Status: Chronic Hydralazine PRN systolic blood pressure greater than 150 Qualifiers: Hypertension type: essential hypertension Qualified Code(s): I10 - Essential (primary) hypertension Subjective Patient reports: feels better, still having pain, pain is less, voiding w/o difficulty, no flatus, no bowel movement, afebrile Narrative: Jenny states she is frustrated. She denies passing gas, worsening abdominal discomfort, bowel movements, nausea, but requests something to eat. She denies fever or shortness of breath. She states she has not ambulated in the hallways. Objective Vital Signs - Last 8 Hours Temp Pulse Resp BP Pulse Ox 04/07/17 06:55 98.9 F 64 16 150/89 90 04/07/17 04:00 98.6 F 66 16 164/87 90 Intake and Output 04/06/17 04/07/17 04/07/17 23:59 07:59 15:59 Intake Total 1100 / 1100 0 / 0 Output Total 900 / 900 800 / 800 Balance 200 / 200 -800 / -800 Intake: IV Fluids 1100 / 1100 0.9 % Sodium Chloride 1,000 ML 1000 / 1000 @ 125 mls/hr IVC .Q8H GEMMA Rx#: [id number] Flagyl Premix 500 MG/100 ML 500 100 / 100 mg In 100 ml @ 100 mls/hr IVPB Q8HR GEMMA Rx#:[id number] Oral 0 / 0 0 / 0 Output: Urine 400 / 400 0 / 0 Gastric Drainage 500 / 500 800 / 800 Other: Weight 122 kg Blood Glucose* 66 66 Patient Weight 04/07/17 23:59 Weight 122 kg - General physical appearance no distress, moderate pain - Eyes normal ocular movement - ENT atraumatic, normocephalic - Neck Neck exam: trachea midline, no venous distension - Respiratory normal expansion, normal respiratory effort, clear to auscultation - Cardiovascular Cardiovascular exam: Present: RRR, distant heart sounds - Abdomen Abdomen: Present: soft, tender (Expected postoperative). Absent: bowel sounds present Hernia: none - Incision Incision: Present: clean and dry. Absent: approximated (One area inferior to the umbilicus is not approximated. This table is noted to have fallen out.) - Integumentary no abnormal pigmentation - Neurologic normal coordination, normal sensation - Musculoskeletal normal gait, normal posture - Labs 04/07/17 09:00 04/07/17 09:00 - VTE Documentation of Mechanical Device: Intermittent pneumatic compression device Consult Discharge Plan - Plan Instructions: Lysis of Abdominal Adhesions (DC) Additional Instructions: General Surgical Discharge Instructions 1. No pushing, pulling, or lifting greater than 15 lbs for 6 weeks. 2. You may shower beginning today, but no tub baths, soaking, or swimming for 2 weeks. 3. You may resume driving when you are off narcotics and are safe to react in a car. 4. Take ibuprofen every 8 hours for discomfort. If this does not relieve discomfort, you may take the as needed Percocet. Take narcotics only as directed. Do not take more narcotics then directed and do not share your narcotics with any other person. Do not drink alcohol while on narcotics. 5. Take stool softeners (Colace) or a water based laxative (Miralax) while taking narcotics. You may hold for loose stools. 6. Report any fevers greater than 100.5F, increase abdominal discomfort, drainage that looks like pus, increased redness or pain at the surgical site, or any vomiting. 7. Report any pain in the calves, shortness of breath, or rapid heartbeat. 8. Follow-up in the office as directed. 9. If you were prescribed antibiotics, do not stop them without talking to your provider. 10. Wound care: Remove dressing and packing. Shower with antibacterial soap. Repack with 1/4 inch plain gauze for wicking purposes. Cover with a dry dressing. Tape to secure. 11. Home health for wound packing (see instructions above). Work release tentatively for 05/19/2017. Referrals: Carlos Bullock MD [Primary Care Provider] - Matilda Luque CNP [Advanced Practice Nurse] - 04/25/17 9:20 am Prescriptions: Ondansetron ODT [Zofran ODT] 4 mg SL Q4HR PRN #15 tab.rapdis PRN Reason: Postsurgical nausea OxyCODONE/APAP 5/325 [Percocet 5/325 MG] 1 each PO Q6HR PRN 7 Days #28 tablet PRN Reason: Postsurgical pain Adhesive Tape [Paper Tape] 2 - 4 each TP BID #2 tape Docusate Sodium [Colace] 100 mg PO BID PRN #30 capsule PRN Reason: Contstipation Gauze Bandage [Gauze Pads] 2 each TP QDPC #60 bandage Ibuprofen 800 mg PO Q8H PRN #30 tablet PRN Reason: Postsurgical pain Polyhexam Biguan/Gauze Bandage [Curity Amd Packing Strips] 1 each TP QDPC #1 bottle <Adria Godinez M - Last Filed: 04/08/17 13:08> Date of Encounter: 04/07/17 Objective Vital Signs - Last 8 Hours Temp Pulse Resp BP Pulse Ox 04/08/17 07:49 98.2 F 58 16 144/89 93 Intake and Output 04/07/17 04/08/17 04/08/17 23:59 07:59 15:59 Intake Total 1820 / 1820 300 / 300 Output Total 900 / 900 0 / 0 Balance 920 / 920 300 / 300 Intake: IV Fluids 1100 / 1100 300 / 300 D5% And 0.45% Nacl 1000 Ml Bag 1000 / 1000 1,000 ML @ 75 mls/hr IVC . [id number] GEMMA Rx#:[id number] Cipro Premix 400 MG/200 ML 400 200 / 200 mg In 200 ml @ 200 mls/hr IVPB Q12H GEMMA Rx#:[id number] Flagyl Premix 500 MG/100 ML 500 100 / 100 100 / 100 mg In 100 ml @ 100 mls/hr IVPB Q8H GEMMA Rx#:[id number] Oral 720 / 720 0 / 0 Output: Urine 0 / 0 0 / 0 Stool 900 / 900 Other: Percent of Meal Consumed 0% Stool Size Moderate Stool Consistency liquid Stool Color Brown Green Weight 120.7 kg Blood Glucose* 224 86 Patient Weight 04/08/17 23:59 Weight 120.7 kg - Labs 04/08/17 07:31 04/08/17 07:31 Diabetes panel 04/08/17 Range/Units 07:31 Sodium 138 (136-145) mEq/L Potassium 3.1 L (3.5-5.1) mEq/L Chloride 105 (98-107) mEq/L Carbon Dioxide 26 (23-29) mEq/L BUN 9 (6-20) mg/dL Creatinine 0.59 L (0.60-1.20) mg/dL Glucose 101 (70-105) mg/dL Calcium 8.1 L (8.6-10.3) mg/dL Calcium panel 04/08/17 Range/Units 07:31 Calcium 8.1 L (8.6-10.3) mg/dL Pituitary panel 04/08/17 Range/Units 07:31 Sodium 138 (136-145) mEq/L Potassium 3.1 L (3.5-5.1) mEq/L Chloride 105 (98-107) mEq/L Carbon Dioxide 26 (23-29) mEq/L BUN 9 (6-20) mg/dL Creatinine 0.59 L (0.60-1.20) mg/dL Glucose 101 (70-105) mg/dL Calcium 8.1 L (8.6-10.3) mg/dL Adrenal panel 04/08/17 Range/Units 07:31 Sodium 138 (136-145) mEq/L Potassium 3.1 L (3.5-5.1) mEq/L Chloride 105 (98-107) mEq/L Carbon Dioxide 26 (23-29) mEq/L BUN 9 (6-20) mg/dL Creatinine 0.59 L (0.60-1.20) mg/dL Glucose 101 (70-105) mg/dL Calcium 8.1 L (8.6-10.3) mg/dL - Attending Attestation I have personally performed a face to face evaluation on this patient. I have reviewed and agree with the care plan. History and Exam by me shows: I reviewed the above and agree with the above plan.
[2017-04-07] MEDS ORDERED: Methylnaltrexone 12 MG/0.6 ML SYRINGE SQ ONE (08:24)
[2017-04-07] MEDS ORDERED: *HR* Dextrose 50 % in Water (Syg) 50 ML SYRINGE IVP PRN (08:28)
[2017-04-07] MEDS ORDERED: Dextrose Gel 15 GM/37.5 ML TUBE PO PRN ×2 (08:28)
[2017-04-07] MEDS ORDERED: D5% in Water 1,000 ML IVC PRN (08:28)
[2017-04-07] MEDS ORDERED: 0.9 % Sodium Chloride 1,000 ML IVC SCH (08:30)
[2017-04-07] MEDS ORDERED: Acetaminophen IV 500 MG/50 ML INFUS..BTL IVPB SCH ×2 (08:30→14:00)
[2017-04-07 09:17] LABS: Basophils % 0.4 %; Eosinophils # 0.3 K/mcL (0.0-0.6); Eosinophils % 3.2 %; Hematocrit 35.2 % (35.3-44.9); Hemoglobin 11.4 g/dL (11.5-15.4); Immature Granulocytes % 0.6 % (0-4); Lymphocytes # 1.5 K/mcL (0.6-4.6); Lymphocytes % 15.1 %; Mean Corpuscular HGB Conc 32.4 g/dL (31.6-35.5); Mean Corpuscular Hemoglobin 28.1 pg (28.0-33.3); Mean Corpuscular Volume 86.7 fL (83.0-100.0); Mean Platelet Volume 10.1 fL (9.4-12.4); Monocytes # 0.7 K/mcL (0.0-1.3); Monocytes % 7.2 %; Neutrophils # 7.4 K/mcL (1.6-8.9); Platelet Count 324 K/mcL (140-400); Red Blood Count 4.06 M/mcL (3.82-4.97); Red Cell Distribution Width 13.1 % (11.5-14.5); Segmented Neutrophils % 73.5 %
[2017-04-07 09:32] LABS: Alanine Aminotransferase 27 Units/L (7-52); Albumin 3.1 g/dL (3.5-5.7); Albumin/Globulin Ratio 1.2 (1.1-2.2); Alkaline Phosphatase 68 Units/L (34-104); Aspartate Amino Transferase 15 Units/L (13-39); BUN/Creatinine Ratio 27 (6-26); Bilirubin,Total 0.4 mg/dL (0.3-1.0); Blood Urea Nitrogen 13 mg/dL (6-20); Calcium 8.2 mg/dL (8.6-10.3); Carbon Dioxide 24 mEq/L (23-29); Chloride 103 mEq/L (98-107); Globulin 2.5 g/dL (2.4-3.5); Glucose 77 mg/dL (70-105); Osmolality,Calculated 283 (280-300); Potassium 3.5 mEq/L (3.5-5.1); Sodium 137 mEq/L (136-145); Total Protein 5.6 g/dL (6.4-8.9); eGFR For African Americans > 60 (> 60); eGFR For Non-African Americans > 60 (> 60)
[2017-04-07] MEDS ORDERED: MetroNIDAZOLE 500 MG/100 ML 500 MG/100 ML BAG IVPB SCH (10:00)
[2017-04-07] MEDS ORDERED: Chloraseptic Spray 177 ML BOTTLE MM PRN (10:03)
[2017-04-07] MEDS: Pantoprazole 40 MG VIAL IVP SCH (11:51)
[2017-04-07] MEDS: D5% in 0.45% NACL 1,000 ML IVC SCH ×2 (12:55→23:37)
--- NOTE | 2017-04-07 14:32 | Internal Med Progress Note ---
Date of Encounter: 04/07/17 Time of Encounter: 14:30 - Assessment and plan (1) Small bowel obstruction Current Visit: Yes Status: Acute Assessment and plan: Stable status post Exploratory celiotomy and Lysis of adhesion. NG tube in place no BM and passing gas Had a small bowel follow through, after small bowel follow-through patient started to have a multiple small bowel normal (2) Diabetes Current Visit: No Status: Chronic Assessment and plan: Chronic we will continue home medication and sliding-scale Qualifiers: Diabetes mellitus type: type 2 Diabetes mellitus complication status: without complication Diabetes mellitus buttermilk drier operator insulin use: without buttermilk drier operator use Qualified Code(s): E11.9 - Type 2 diabetes mellitus without complications (3) Hypertension Current Visit: Yes Status: Chronic Assessment and plan: Chronic and well-controlled Qualifiers: Hypertension type: essential hypertension Qualified Code(s): I10 - Essential (primary) hypertension (4) Morbid obesity due to excess calories Current Visit: Yes Status: Chronic Assessment and plan: Lifestyle modification discussed - Time Spent With Patient 25 - 35 minutes - Subjective Interval history: Patient is a 51 years old female who has history of diabetes hypertension admitted on April 03 for small bowel obstruction she had to expiratory Exploratory celiotomy Lysis of adhesion on 04/03. She is postoperative day 3 still has no bowel function. NG has been draining dark fluids. She feels weak , and hungry want to have food. Afebrile white cells training down. Patient report has no BM no passing gas since surgery. But after small bowel follow-through she started having multiple bowel movements. - Constitutional Vitals: Temp Pulse Resp BP Pulse Ox 98.9 F 64 16 150/89 90 04/07/17 06:55 04/07/17 06:55 04/07/17 06:55 04/07/17 06:55 04/07/17 06:55 General appearance: Present: A&O X 3, morbidly obese, severe distress Exam: CONSTITUTIONAL: patient appears as an age appropriate female in no acute distress. EYES Clear sclerae, bilateral pupils are equal, reactive to light. EMOI. RESPIRATORY: No accessory muscle use, bilateral clear to auscultation, no wheezing, no crackles/rales. CARDIOVASCULAR: Regular heart rate, normal S1 and S2, no murmurs GASTROINTESTINAL: bowel sounds present, soft, mild tenderness. MUSCULOSKELETAL: Joints in normal range of motion, no clubbing, no edema, no cyanosis. Bilateral peripheral pulses 2+. NEUROLOGIC: CN II to XII are grossly intact, no focal neurological deficit. Internal Medicine: Result - Labs CBC & Chem 7: 04/07/17 09:00 04/07/17 09:00 Labs: Short CBC 04/07/17 Range/Units 09:00 WBC 10.1 (4.3-11.1) K/mcL Hgb 11.4 L (11.5-15.4) g/dL Hct 35.2 L (35.3-44.9) % Plt Count 324 (140-400) K/mcL Neutrophils # 7.4 (1.6-8.9) K/mcL BMP 04/07/17 09:00 Sodium 137 Potassium 3.5 Chloride 103 Carbon Dioxide 24 BUN 13 Creatinine 0.49 L Glucose 77 Calcium 8.2 L Liver Function 04/07/17 Range/Units 09:00 Total Bilirubin 0.4 (0.3-1.0) mg/dL AST 15 (13-39) Units/L ALT 27 (7-52) Units/L Alkaline Phosphatase 68 (34-104) Units/L Albumin 3.1 L (3.5-5.7) g/dL - ABG Interpretation ABG results: PT/INR, D-dimer PT 10.9 Seconds (9.4-12.1) 04/03/17 07:52 - Impressions Impressions Small Bowel X-Ray 04/07/17 08:00 IMPRESSION: Unremarkable water-soluble contrast contrast small bowel follow-through series D/ / Rio Mesa MD / Rio Mesa MD Interpreting Provider: Rio Mesa MD - VTE Documentation of Mechanical Device: Intermittent pneumatic compression device Consult Discharge Plan - Plan Referrals: Carlos Bullock MD [Primary Care Provider] -
--- NOTE | 2017-04-07 15:00 | Event Note ---
Date of Encounter: 04/07/17 Time of Encounter: 14:58 Pt has had 4BMs since returning from SBFT (witnessed per bedside RN). She is tolerating clears wtihout n/v. She denies worsening abdominal discomfort. D/c'd NG. Strongly encouraged getting OOB and ambulating in halls this afternoon/evening ( at least twice). Pt states she is agreeable. May advanced to [facility] for dinner.
[2017-04-07] MEDS ORDERED: *HR* OxyCODONE/APAP 5/325 TABLET PO PRN (15:03)
[2017-04-07] MEDS ORDERED: *HR* Morphine Soln 10 MG/5 ML UDC PO PRN (15:04)
[2017-04-07] MEDS ORDERED: Ipratropium/Albuterol Neb 3 ML IH PRN (15:32)
[2017-04-07] MEDS ORDERED: Ondansetron 4 MG/2 ML VIAL IVP PRN (15:33)
[2017-04-08] MEDS ORDERED: 0.9 % Sodium Chloride 1,000 ML IVC SCH ×2 (01:15→08:19)
[2017-04-08] MEDS ORDERED: Dextrose Gel 15 GM/37.5 ML TUBE PO PRN ×2 (01:16)
[2017-04-08] MEDS ORDERED: *HR* Dextrose 50 % in Water (Syg) 50 ML SYRINGE IVP PRN (01:16)
[2017-04-08] MEDS ORDERED: D5% in Water 1,000 ML IVC PRN (01:16)
[2017-04-08] MEDS: MetroNIDAZOLE 500 MG/100 ML 500 MG/100 ML BAG IVPB SCH ×3 (03:31→20:23)
[2017-04-08] MEDS: *HR* Heparin 5,000 UNIT/ML VIAL SQ SCH ×2 (06:12→18:26)
[2017-04-08] MEDS: Ketorolac 15 MG/ML VIAL IVP SCH ×3 (06:13→18:26)
[2017-04-08 07:48] LABS: Basophils # 0.1 K/mcL (0.0-0.2); Basophils % 0.6 %; Eosinophils # 0.4 K/mcL (0.0-0.6); Eosinophils % 4.6 %; Hematocrit 35.3 % (35.3-44.9); Hemoglobin 11.2 g/dL (11.5-15.4); Immature Granulocytes % 0.8 % (0-4); Lymphocytes # 1.9 K/mcL (0.6-4.6); Lymphocytes % 20.7 %; Mean Corpuscular HGB Conc 31.7 g/dL (31.6-35.5); Mean Corpuscular Hemoglobin 27.7 pg (28.0-33.3); Mean Corpuscular Volume 87.2 fL (83.0-100.0); Mean Platelet Volume 9.9 fL (9.4-12.4); Monocytes # 0.8 K/mcL (0.0-1.3); Monocytes % 8.9 %; Neutrophils # 5.8 K/mcL (1.6-8.9); Platelet Count 335 K/mcL (140-400); Red Blood Count 4.05 M/mcL (3.82-4.97); Red Cell Distribution Width 13.3 % (11.5-14.5); Segmented Neutrophils % 64.4 %
[2017-04-08] MEDS: Insulin LISPRO 300 UNITS/3 ML VIAL SQ SCH ×3 (07:54→16:57)
[2017-04-08 08:09] LABS: BUN/Creatinine Ratio 15 (6-26); Blood Urea Nitrogen 9 mg/dL (6-20); Calcium 8.1 mg/dL (8.6-10.3); Carbon Dioxide 26 mEq/L (23-29); Chloride 105 mEq/L (98-107); Glucose 101 mg/dL (70-105); Osmolality,Calculated 285 (280-300); Potassium 3.1 mEq/L (3.5-5.1); Sodium 138 mEq/L (136-145); eGFR For African Americans > 60 (> 60); eGFR For Non-African Americans > 60 (> 60)
[2017-04-08] MEDS ORDERED: Potassium Chloride 40 MEQ, Lidocaine 1% 2 ML in D5% in Water 500 ML IVPB ONE (08:23)
--- NOTE | 2017-04-08 08:24 | General Surgery Progress Note ---
Date of Encounter: 04/08/17 Time of Encounter: 08:00 - Assessment and Plan (1) Small bowel obstruction Current Visit: Yes Status: Acute Date of procedure: 04/03/17 Pre-op diagnosis: Small bowel obstruction Post-op diagnosis: other (Partial small bowel obstruction) Procedure: 1. Exploratory celiotomy. 2. Lysis of adhesion. Anesthesia: GETA POD # 5 as above she states her abdominal discomfort is overall control in the current regimen. She endorses flatus and bowel movements. She denies abdominal distention. She denies changes in her wound drainage. She is noted to have multiple bowel movement since her unremarkable small bowel follow-through on 04/07/2017. She ambulated in the hallways yesterday evening. She is tolerating her full liquid diet and endorses an appetite. WBC is normal Plan: advanced diet to soft diet as scheduled MiraLAX daily while on narcotics ambulate and halls at least 3 times daily. Out of bed to chair for all meals. Do not eat meals in the bed. Shower daily with antibacterial soap. Daily wound care: remove dressing and packing. Shower as above. Repack with 1/ 4 inch plain gauze for waking purposes. Cover with a dry dressing. Continue supportive care and discomfort management. Add Ensure high-protein TID with trays given decreased albumin status and women dehiscence continue G.I. and DVT prophylaxis We did decrease fluids to KVO and replaced potassium for bowel function (2) Nonadherence to medical treatment Current Visit: Yes Status: Acute Ambulate and halls TID with assistance and out of bed to chair for all meals (3) Abdominal pain Current Visit: Yes Status: Acute See A/P above. Primary team managing total hospital course Qualifiers: Abdominal location: generalized Qualified Code(s): R10.84 - Generalized abdominal pain (4) Diabetes Current Visit: No Status: Chronic To a soft diet. Total diabetes management primary team. Qualifiers: Diabetes mellitus type: type 2 Diabetes mellitus complication status: without complication Diabetes mellitus oysterman insulin use: without mcc use Qualified Code(s): E11.9 - Type 2 diabetes mellitus without complications (5) Hypertension Current Visit: Yes Status: Chronic Hydralazine PRN systolic blood pressure greater than 150 resume home medications Qualifiers: Hypertension type: essential hypertension Qualified Code(s): I10 - Essential (primary) hypertension Subjective Narrative: Jenny states, "I feel 100% better!" She denies n/v/abd distention or worsening abdominal discomfort. She reports she ambulated yesterday evening. She denies fever, chills, or worsening drainage from her surgical site. Objective Vital Signs - Last 8 Hours Temp Pulse Resp BP Pulse Ox 04/08/17 07:49 98.2 F 58 16 144/89 93 04/08/17 03:13 98.6 F 55 15 158/86 93 Intake and Output 04/07/17 04/08/17 04/08/17 23:59 07:59 15:59 Intake Total 1820 / 1820 300 / 300 Output Total 900 / 900 0 / 0 Balance 920 / 920 300 / 300 Intake: IV Fluids 1100 / 1100 300 / 300 D5% And 0.45% Nacl 1000 Ml Bag 1000 / 1000 1,000 ML @ 75 mls/hr IVC . [id number] GEMMA Rx#:[id number] Cipro Premix 400 MG/200 ML 400 200 / 200 mg In 200 ml @ 200 mls/hr IVPB Q12H GEMMA Rx#:[id number] Flagyl Premix 500 MG/100 ML 500 100 / 100 100 / 100 mg In 100 ml @ 100 mls/hr IVPB Q8H GEMMA Rx#:[id number] Oral 720 / 720 0 / 0 Output: Urine 0 / 0 0 / 0 Stool 900 / 900 Other: Percent of Meal Consumed 0% Stool Size Moderate Stool Consistency liquid Stool Color Brown Green Weight 120.7 kg Blood Glucose* 224 86 Patient Weight 04/08/17 23:59 Weight 120.7 kg - General physical appearance no distress, no pain - ENT atraumatic, normocephalic - Neck Neck exam: trachea midline, no venous distension - Respiratory normal expansion, normal respiratory effort, clear to auscultation - Cardiovascular Cardiovascular exam: Present: RRR - Abdomen Abdomen: Present: bowel sounds present, soft, tender (Expected postoperative tenderness) Hernia: none - Incision Incision: Present: clean and dry, intact, open (One area of dehiscence noted with packing in place. Serous drainage.) - Labs 04/08/17 07:31 04/08/17 07:31 Diabetes panel 04/07/17 04/08/17 Range/Units 09:00 07:31 Sodium 137 138 (136-145) mEq/L Potassium 3.5 3.1 L (3.5-5.1) mEq/L Chloride 103 105 (98-107) mEq/L Carbon Dioxide 24 26 (23-29) mEq/L BUN 13 9 (6-20) mg/dL Creatinine 0.49 L 0.59 L (0.60-1.20) mg/dL Glucose 77 101 (70-105) mg/dL Calcium 8.2 L 8.1 L (8.6-10.3) mg/dL AST 15 (13-39) Units/L ALT 27 (7-52) Units/L Alkaline Phosphatase 68 (34-104) Units/L Albumin 3.1 L (3.5-5.7) g/dL Calcium panel 04/07/17 04/08/17 Range/Units 09:00 07:31 Calcium 8.2 L 8.1 L (8.6-10.3) mg/dL Albumin 3.1 L (3.5-5.7) g/dL Pituitary panel 04/07/17 04/08/17 Range/Units 09:00 07:31 Sodium 137 138 (136-145) mEq/L Potassium 3.5 3.1 L (3.5-5.1) mEq/L Chloride 103 105 (98-107) mEq/L Carbon Dioxide 24 26 (23-29) mEq/L BUN 13 9 (6-20) mg/dL Creatinine 0.49 L 0.59 L (0.60-1.20) mg/dL Glucose 77 101 (70-105) mg/dL Calcium 8.2 L 8.1 L (8.6-10.3) mg/dL Adrenal panel 04/07/17 04/08/17 Range/Units 09:00 07:31 Sodium 137 138 (136-145) mEq/L Potassium 3.5 3.1 L (3.5-5.1) mEq/L Chloride 103 105 (98-107) mEq/L Carbon Dioxide 24 26 (23-29) mEq/L BUN 13 9 (6-20) mg/dL Creatinine 0.49 L 0.59 L (0.60-1.20) mg/dL Glucose 77 101 (70-105) mg/dL Calcium 8.2 L 8.1 L (8.6-10.3) mg/dL Total Bilirubin 0.4 (0.3-1.0) mg/dL AST 15 (13-39) Units/L ALT 27 (7-52) Units/L Alkaline Phosphatase 68 (34-104) Units/L Albumin 3.1 L (3.5-5.7) g/dL - VTE Documentation of Mechanical Device: Intermittent pneumatic compression device Consult Discharge Plan - Plan Referrals: Carlos Bullock MD [Primary Care Provider] -
[2017-04-08] MEDS: Gabapentin 400 MG CAPSULE PO SCH (09:40)
[2017-04-08] MEDS: Pantoprazole 40 MG VIAL IVP SCH (09:40)
--- NOTE | 2017-04-08 11:13 | Event Note ---
Date of Encounter: 04/08/17 Time of Encounter: 11:10 D/c planning added since it could not be added to addended note. Pt is ok to d/c from a surgical perspective (when home health is in place for wound packing). See d/c planning information - Patient Status Disposition: Still a Patient Condition: Fair Functional capacity at discharge: independent ambulation Overall status at discharge: patient is progressing back to baseline - Discharge Instructions Instructions: Lysis of Abdominal Adhesions (DC) Follow Up With: Carlos Bullock MD [Primary Care Provider] - Matilda Luque CNP [Advanced Practice Nurse] - 04/25/17 9:20 am Forms: Inpatient Work/School Release Additional Instructions: General Surgical Discharge Instructions 1. No pushing, pulling, or lifting greater than 15 lbs for 6 weeks. 2. You may shower beginning today, but no tub baths, soaking, or swimming for 2 weeks. 3. You may resume driving when you are off narcotics and are safe to react in a car. 4. Take ibuprofen every 8 hours for discomfort. If this does not relieve discomfort, you may take the as needed Percocet. Take narcotics only as directed. Do not take more narcotics then directed and do not share your narcotics with any other person. Do not drink alcohol while on narcotics. 5. Take stool softeners (Colace) or a water based laxative (Miralax) while taking narcotics. You may hold for loose stools. 6. Report any fevers greater than 100.5F, increase abdominal discomfort, drainage that looks like pus, increased redness or pain at the surgical site, or any vomiting. 7. Report any pain in the calves, shortness of breath, or rapid heartbeat. 8. Follow-up in the office as directed. 9. If you were prescribed antibiotics, do not stop them without talking to your provider. 10. Wound care: Remove dressing and packing. Shower with antibacterial soap. Repack with 1/4 inch plain gauze for wicking purposes. Cover with a dry dressing. Tape to secure. 11. Home health for wound packing (see instructions above). Work release tentatively for 05/19/2017. - Diet and Activity Activity: increase activity as tolerated Diet: advance to your usual diet
--- NOTE | 2017-04-08 15:11 | Discharge Summary ---
Date of Encounter: 04/08/17 Time of Encounter: 14:00 - Discharge Diagnosis (1) Small bowel obstruction Priority: Primary Status: Acute (2) Hypertension Priority: Secondary Status: Chronic Qualifiers: Hypertension type: essential hypertension Qualified Code(s): I10 - Essential (primary) hypertension (3) Morbid obesity due to excess calories Priority: Secondary Status: Chronic (4) Diabetes Priority: Secondary Status: Chronic Qualifiers: Diabetes mellitus type: type 2 Diabetes mellitus complication status: with unspecified complications Diabetes mellitus registered associate insulin use: without fci use Qualified Code(s): E11.8 - Type 2 diabetes mellitus with unspecified complications Hospital course: Ms. Rojas is a 51 year old female with the above medical problems who was admitted with abdominal pain, nausea and vomiting. CT abdomen/pelvis done in the emergency room showed closed loop bowel obstruction. General surgery was consulted and patient underwent exploratory celiotomy, lysis of adhesions on . She was given supportive care with IV hydration, IV antibiotics- ciprofloxacin and Flagyl, when necessary antiemetics and pain control. Postoperative care like nasogastric tube management, incentive spirometry was followed by surgery. I have seen the patient today, doing significantly better, medically stable. Discussed with surgery, being provided with prescriptions for pain and nausea and instructions for wound care and outpatient follow-up appointment. Patient and her significant other cannot do home care, hence home health services referral has been completed for wound care. Discharge discussed with: family (significant other) - Time Spent with Patient Total time spent providing and/or coordinating discharge services: Greater than 30 minutes (40 min) - Discharge Medications Prescriptions: Ondansetron ODT [Zofran ODT] 4 mg SL Q4HR PRN #15 tab.rapdis PRN Reason: Postsurgical nausea OxyCODONE/APAP 5/325 [Percocet 5/325 MG] 1 each PO Q6HR PRN 7 Days #28 tablet PRN Reason: Postsurgical pain Adhesive Tape [Paper Tape] 2 - 4 each TP BID #2 tape Docusate Sodium [Colace] 100 mg PO BID PRN #30 capsule PRN Reason: Contstipation Gauze Bandage [Gauze Pads] 2 each TP QDPC #60 bandage Ibuprofen 800 mg PO Q8H PRN #30 tablet PRN Reason: Postsurgical pain Polyhexam Biguan/Gauze Bandage [Curity Amd Packing Strips] 1 each TP QDPC #1 bottle Home Medications: Lisinopril [Zestril] 5 mg PO DAILY 03/29/17 [History] Gabapentin [Neurontin] 1,600 mg PO QPM 04/03/17 [History] Gabapentin [Neurontin] 800 mg PO QAM 04/03/17 [History] Adhesive Tape [Paper Tape] 2 - 4 each TP BID #2 tape 04/08/17 [Rx] Docusate Sodium [Colace] 100 mg PO BID PRN #30 capsule 04/08/17 [Rx] Gauze Bandage [Gauze Pads] 2 each TP QDPC #60 bandage 04/08/17 [Rx] Ibuprofen 800 mg PO Q8H PRN #30 tablet 04/08/17 [Rx] Ondansetron ODT [Zofran ODT] 4 mg SL Q4HR PRN #15 tab.rapdis 04/08/17 [Rx] OxyCODONE/APAP 5/325 [Percocet 5/325 MG] 1 each PO Q6HR PRN 7 Days #28 tablet [Rx] Polyhexam Biguan/Gauze Bandage [Curity Amd Packing Strips] 1 each TP QDPC #1 bottle 04/08/17 [Rx] Allergies/Adverse Reactions: 3 Allergy/AdvReac Type Severity Reaction Status Date / Time Penicillins [PCN] Allergy Difficulty Verified 02/18/15 10:56 Breathing Date of admission: 04/03/17 12:29 Primary care physician: Carlos Bullock MD Consults: 04/04/17 15:35 Consult to Respiratory Therapy [CONS] Routine Reason for Consult: scheduled duonebs and aggressive pulmonary toileting Call Completed: No 04/06/17 15:58 Consult to Physical Therapy [CONS] Routine Comment: Evaluate, develop and implement POC Reason for Consult: weakness 04/08/17 11:15 Consult to Waterproof Bag Sewer [CONS] Stat Reason for SW Consult: Possible home health needs (will need packing for aprox 2 weeks). Discharging clinician: Leticia Araya Anticipated date of discharge: 04/08/17 - Constitutional Vitals: Temp Pulse Resp BP Pulse Ox 98.2 F 58 16 144/89 93 04/08/17 07:49 04/08/17 07:49 04/08/17 07:49 04/08/17 07:49 04/08/17 07:49 General appearance: Present: A&O X 3 (drowsy and somnolent), morbidly obese - GI/Abdominal GI/Abdominal exam: Present: normal bowel sounds, soft (obese, midline surgical incision healing well, chalino intact, distal packing noted), no peritoneal signs. Absent: distended, tenderness - Patient Status Disposition: Home Health Service Condition: Fair Functional capacity at discharge: independent ambulation Overall status at discharge: patient is progressing back to baseline - Discharge Instructions Instructions: Lysis of Abdominal Adhesions (DC) Follow Up With: Carlos Bullock MD [Primary Care Provider] - 04/21/17 1:20 pm Matilda Luque CNP [Advanced Practice Nurse] - 04/25/17 9:20 am Forms: Inpatient Work/School Release Additional Instructions: General Surgical Discharge Instructions 1. No pushing, pulling, or lifting greater than 15 lbs for 6 weeks. 2. You may shower beginning today, but no tub baths, soaking, or swimming for 2 weeks. 3. You may resume driving when you are off narcotics and are safe to react in a car. 4. Take ibuprofen every 8 hours for discomfort. If this does not relieve discomfort, you may take the as needed Percocet. Take narcotics only as directed. Do not take more narcotics then directed and do not share your narcotics with any other person. Do not drink alcohol while on narcotics. 5. Take stool softeners (Colace) or a water based laxative (Miralax) while taking narcotics. You may hold for loose stools. 6. Report any fevers greater than 100.5F, increase abdominal discomfort, drainage that looks like pus, increased redness or pain at the surgical site, or any vomiting. 7. Report any pain in the calves, shortness of breath, or rapid heartbeat. 8. Follow-up in the office as directed. 9. If you were prescribed antibiotics, do not stop them without talking to your provider. 10. Wound care: Remove dressing and packing. Shower with antibacterial soap. Repack with 1/4 inch plain gauze for wicking purposes. Cover with a dry dressing. Tape to secure. 11. Home health for wound packing (see instructions above). Work release tentatively for 05/19/2017. - Diet and Activity Activity: resume usual activities as tolerated (restrictions per Surgery) Diet: diabetic diet, low fat, low cholesterol, low salt diet - VTE Documentation of Mechanical Device: Intermittent pneumatic compression device
--- NOTE | 2017-04-08 15:17 | Physician Discharge Referral ---
Home Health/Hosp Referral Info Transfer to: Home Health Attending Provider: Leticia Araya Provider in Charge Post Discharge: PCP - Diagnosis (1) Small bowel obstruction Priority: Primary Status: Acute (2) Hypertension Priority: Secondary Status: Chronic (3) Morbid obesity due to excess calories Priority: Secondary Status: Chronic (4) Diabetes Priority: Secondary Status: Chronic - Respiratory Orders Smoking Cessation: Smoking cessation has been advised. For more information, call the [place] Tobacco Quit Line at 2-293-CNLR-NOW. - Diet/Nutrition Diet/Nutrition Orders: Cardiac, No Concentrated Sweets (diabetic) - Activity Activity Orders: Ambulate - Services Needed Following services are medically necessary services: Nursing - Transfer Medications Prescriptions: Ondansetron ODT [Zofran ODT] 4 mg SL Q4HR PRN #15 tab.rapdis PRN Reason: Postsurgical nausea OxyCODONE/APAP 5/325 [Percocet 5/325 MG] 1 each PO Q6HR PRN 7 Days #28 tablet PRN Reason: Postsurgical pain Adhesive Tape [Paper Tape] 2 - 4 each TP BID #2 tape Docusate Sodium [Colace] 100 mg PO BID PRN #30 capsule PRN Reason: Contstipation Gauze Bandage [Gauze Pads] 2 each TP QDPC #60 bandage Ibuprofen 800 mg PO Q8H PRN #30 tablet PRN Reason: Postsurgical pain Polyhexam Biguan/Gauze Bandage [Curity Amd Packing Strips] 1 each TP QDPC #1 bottle Home Medications: Lisinopril [Zestril] 5 mg PO DAILY 03/29/17 [History] Gabapentin [Neurontin] 1,600 mg PO QPM 04/03/17 [History] Gabapentin [Neurontin] 800 mg PO QAM 04/03/17 [History] Adhesive Tape [Paper Tape] 2 - 4 each TP BID #2 tape 04/08/17 [Rx] Docusate Sodium [Colace] 100 mg PO BID PRN #30 capsule 04/08/17 [Rx] Gauze Bandage [Gauze Pads] 2 each TP QDPC #60 bandage 04/08/17 [Rx] Ibuprofen 800 mg PO Q8H PRN #30 tablet 04/08/17 [Rx] Ondansetron ODT [Zofran ODT] 4 mg SL Q4HR PRN #15 tab.rapdis 04/08/17 [Rx] OxyCODONE/APAP 5/325 [Percocet 5/325 MG] 1 each PO Q6HR PRN 7 Days #28 tablet [Rx] Polyhexam Biguan/Gauze Bandage [Curity Amd Packing Strips] 1 each TP QDPC #1 bottle 04/08/17 [Rx] Allergies/Adverse Reactions: 3 Allergy/AdvReac Type Severity Reaction Status Date / Time Penicillins [PCN] Allergy Difficulty Verified 02/18/15 10:56 Breathing Certification: Further, I certify that my clinical findings support that this patient is homebound (i.e. absences from home require considerable and taxing effort and are for medical reasons or hoahaoism services or infrequently or short duration when for other reasons) because: Homebound Reason: Post-surgery restriction and or conditions limit ability to leave home Attestation: My signature below is to certify that this patient is under my care and that I, or nurse practitioner, or a physician's information assistant working with me, has a face-to -face encounter with this patient.
[2017-04-08] MEDS ORDERED: Gabapentin 400 MG CAPSULE PO SCH (18:00)
[2017-04-08] MEDS ORDERED: Insulin LISPRO 300 UNITS/3 ML VIAL SQ SCH (21:00)
[2017-04-09] MEDS: MetroNIDAZOLE 500 MG/100 ML 500 MG/100 ML BAG IVPB SCH (03:45)
[2017-04-09] MEDS: *HR* Heparin 5,000 UNIT/ML VIAL SQ SCH (05:41)
[2017-04-09 07:12] VITALS: BP 143/78
[2017-04-09] MEDS: Insulin LISPRO 300 UNITS/3 ML VIAL SQ SCH (07:26)
[2017-04-09] MEDS: Gabapentin 400 MG CAPSULE PO SCH (08:09)
== END 2017-04-09 11:41 | disposition home health service (06) | DRG 336 ==
LOC: 2SOUTHHOLD 04:13 → EMEROO 04:13 → 2SOUTHHOLD 08:38 → SUATTDRO 12:29 → 3ANU 18:08
PROVIDERS: ADMIT Internal Medicine; ATTEND Internal Medicine

== ENCOUNTER 2021-05-31 18:47 | Inpatient (IN) ==
[2021-05-31] MEDS ORDERED: Melatonin 3 MG TABLET PO PRN (21:44)
[2021-05-31] MEDS ORDERED: Ondansetron 4 MG/2 ML VIAL IVP PRN (21:44)
[2021-05-31] MEDS ORDERED: *HR* HYDROcodone/Acet 5/325 mg TABLET PO PRN (21:44)
[2021-05-31] MEDS ORDERED: Naloxone 0.4 MG/ML INJ IVP PRN (21:44)
[2021-05-31] MEDS ORDERED: *HR* LORazepam 0.5 MG TABLET PO PRN (22:13)
[2021-05-31] MEDS ORDERED: Ipratropium/Albuterol Neb 3 ML IH PRN (22:13)
[2021-05-31] MEDS: Gabapentin 400 MG CAPSULE PO SCH (22:21)
[2021-05-31 22:52] LABS: Basophils % 0.3 %; Hematocrit 43.7 % (35.3-44.9); Hemoglobin 14.3 g/dL (11.5-15.4); Immature Granulocytes % 0.6 % (0-4); Lymphocytes # 0.8 K/mcL (0.6-4.6); Lymphocytes % 12.9 %; Mean Corpuscular HGB Conc 32.7 g/dL (31.6-35.5); Mean Corpuscular Hemoglobin 27.4 pg (28.0-33.3); Mean Corpuscular Volume 83.9 fL (83.0-100.0); Mean Platelet Volume 10.2 fL (9.4-12.4); Monocytes # 0.1 K/mcL (0.0-1.3); Monocytes % 1.8 %; Neutrophils # 5.5 K/mcL (1.6-8.9); Platelet Count 255 K/mcL (140-400); Red Blood Count 5.21 M/mcL (3.82-4.97); Red Cell Distribution Width 13.3 % (11.5-14.5); Segmented Neutrophils % 84.4 %; White Blood Count 6.5 K/mcL (4.3-11.1)
[2021-05-31 23:18] LABS: Alanine Aminotransferase 17 Units/L (7-52); Albumin 3.9 g/dL (3.5-5.7); Albumin/Globulin Ratio 1.3 (1.1-2.2); Alkaline Phosphatase 109 Units/L (34-104); Aspartate Amino Transferase 23 Units/L (13-39); BUN/Creatinine Ratio 13 (6-26); Bilirubin,Total 0.4 mg/dL (0.3-1.0); Blood Urea Nitrogen 11 mg/dL (6-20); Calcium 8.7 mg/dL (8.6-10.3); Carbon Dioxide 19 mEq/L (23-29); Chloride 103 mEq/L (98-107); Globulin 3.1 g/dL (2.4-3.5); Glucose 195 mg/dL (70-105); Magnesium 1.8 mg/dL (1.6-2.6); Osmolality,Calculated 285 (280-300); Potassium 3.5 mEq/L (3.5-5.1); Sodium 135 mEq/L (136-145); eGFR For African Americans > 60 (> 60); eGFR For Non-African Americans > 60 (> 60)
[2021-06-01] MEDS ORDERED: Saliva Stimulant 44.3ml BOTTLE PO PRN (00:22)
[2021-06-01] MEDS ORDERED: Ringers Solution, Lactated 1,000 ML IVC SCH (00:45)
[2021-06-01 03:06] LABS: Basophils % 0.3 %; Hematocrit 43.3 % (35.3-44.9); Hemoglobin 14.2 g/dL (11.5-15.4); Immature Granulocytes % 0.8 % (0-4); Lymphocytes # 0.8 K/mcL (0.6-4.6); Lymphocytes % 20.9 %; Mean Corpuscular HGB Conc 32.8 g/dL (31.6-35.5); Mean Corpuscular Hemoglobin 27.6 pg (28.0-33.3); Mean Corpuscular Volume 84.2 fL (83.0-100.0); Mean Platelet Volume 10.3 fL (9.4-12.4); Monocytes # 0.1 K/mcL (0.0-1.3); Monocytes % 3.3 %; Neutrophils # 2.9 K/mcL (1.6-8.9); Platelet Count 273 K/mcL (140-400); Red Blood Count 5.14 M/mcL (3.82-4.97); Red Cell Distribution Width 13.3 % (11.5-14.5); Segmented Neutrophils % 74.7 %; White Blood Count 3.9 K/mcL (4.3-11.1)
[2021-06-01 03:13] LABS: Alanine Aminotransferase 17 Units/L (7-52); Albumin 3.9 g/dL (3.5-5.7); Albumin/Globulin Ratio 1.3 (1.1-2.2); Alkaline Phosphatase 111 Units/L (34-104); Aspartate Amino Transferase 19 Units/L (13-39); BUN/Creatinine Ratio 14 (6-26); Bilirubin,Total 0.3 mg/dL (0.3-1.0); Blood Urea Nitrogen 11 mg/dL (6-20); Calcium 8.9 mg/dL (8.6-10.3); Carbon Dioxide 24 mEq/L (23-29); Chloride 102 mEq/L (98-107); Globulin 2.9 g/dL (2.4-3.5); Glucose 166 mg/dL (70-105); Osmolality,Calculated 285 (280-300); Phosphorous 3.1 mg/dL (2.7-4.5); Potassium 3.9 mEq/L (3.5-5.1); Prothrombin Time 10.9 Seconds (9.4-12.1); Sodium 136 mEq/L (136-145); Total Protein 6.8 g/dL (6.4-8.9); eGFR For African Americans > 60 (> 60); eGFR For Non-African Americans > 60 (> 60)
[2021-06-01 03:15] LABS: Activated Partial Thrombo Time 31.7 Seconds (26.0-36.0)
[2021-06-01 03:24] LABS: Adenovirus Not Detected (Not Detect); Bordetella Pertussis Not Detected (Not Detect); Chlamydophila pneumoniae Not Detected (Not Detect); Coronavirus 229E Not Detected (Not Detect); Coronavirus HKU1 Not Detected (Not Detect); Coronavirus NL63 Not Detected (Not Detect); Coronavirus OC43 Not Detected (Not Detect); Human Metapneumovirus DETECTED (Not Detect); Human Rhinovirus/Enterovirus Not Detected (Not Detect); Influenza A Subtype 2009 H1 Not Detected (Not Detect); Influenza B Not Detected (Not Detect); Mycoplasma pneumoniae Not Detected (Not Detect); Parainfluenza Virus 1 Not Detected (Not Detect); Parainfluenza Virus 2 Not Detected (Not Detect); Parainfluenza Virus 3 Not Detected (Not Detect); Parainfluenza Virus 4 Not Detected (Not Detect); Respiratory Syncytial Virus Not Detected (Not Detect); SARS-CoV-2 Not Detected (Not Detect)
[2021-06-01] MEDS: Gabapentin 400 MG CAPSULE PO SCH ×2 (08:17→19:48)
[2021-06-01] MEDS: *HR* Enoxaparin 40 MG/0.4 ML SYRINGE SQ SCH ×2 (08:17→19:49)
[2021-06-01] MEDS: Multivit/Ca/Min/Fe/FA 1 TAB TABLET PO SCH (08:17)
[2021-06-01] MEDS: Lactobacillus 1 EACH CAP.SPRINK PO SCH ×2 (08:17→19:49)
[2021-06-01] MEDS: Chlorhexidine Rinse 15 ML MOUTHWASH MM SCH ×2 (08:17→19:48)
[2021-06-01] MEDS: levoFLOXacin 750 MG/150 ML 750 MG/150 ML BAG IVPB SCH (08:35)
[2021-06-01] MEDS ORDERED: cefTRIAXone 1,000 MG in 0.9 % Sodium Chloride Mini Bag 100 ML IVPB SCH (09:00)
[2021-06-01] MEDS ORDERED: Azithromycin 250 MG TABLET PO SCH (09:00)
[2021-06-01] MEDS: Ipratropium/Albuterol Neb 3 ML IH SCH ×3 (15:55→19:46)
[2021-06-01] MEDS: Acetaminophen 325 MG TABLET PO PRN (17:16)
[2021-06-02 03:42] LABS: Basophils % 0.3 %; Eosinophils # 0.1 K/mcL (0.0-0.6); Eosinophils % 2.1 %; Immature Granulocytes % 0.5 % (0-4); Lymphocytes # 2.3 K/mcL (0.6-4.6); Lymphocytes % 34.1 %; Mean Corpuscular HGB Conc 32.1 g/dL (31.6-35.5); Mean Corpuscular Hemoglobin 27.5 pg (28.0-33.3); Mean Corpuscular Volume 85.9 fL (83.0-100.0); Mean Platelet Volume 9.9 fL (9.4-12.4); Monocytes # 0.6 K/mcL (0.0-1.3); Neutrophils # 3.6 K/mcL (1.6-8.9); Platelet Count 254 K/mcL (140-400); Red Blood Count 4.54 M/mcL (3.82-4.97)
[2021-06-02 03:47] LABS: Hemoglobin 12.5 g/dL (11.5-15.4); White Blood Count 6.7 K/mcL (4.3-11.1)
[2021-06-02 04:02] LABS: BUN/Creatinine Ratio 20 (6-26); Blood Urea Nitrogen 17 mg/dL (6-20); Calcium 8.3 mg/dL (8.6-10.3); Carbon Dioxide 25 mEq/L (23-29); Chloride 105 mEq/L (98-107); Glucose 100 mg/dL (70-105); Magnesium 2.2 mg/dL (1.6-2.6); Osmolality,Calculated 288 (280-300); Potassium 3.6 mEq/L (3.5-5.1); Sodium 138 mEq/L (136-145); eGFR For African Americans > 60 (> 60); eGFR For Non-African Americans > 60 (> 60)
[2021-06-02] MEDS: Ipratropium/Albuterol Neb 3 ML IH SCH ×3 (04:44→15:28)
[2021-06-02 04:46] VITALS: O2SAT 93
[2021-06-02] MEDS: levoFLOXacin 750 MG/150 ML 750 MG/150 ML BAG IVPB SCH (08:39)
[2021-06-02] MEDS: Gabapentin 400 MG CAPSULE PO SCH (08:42)
[2021-06-02] MEDS: *HR* Enoxaparin 40 MG/0.4 ML SYRINGE SQ SCH (08:42)
[2021-06-02] MEDS: Chlorhexidine Rinse 15 ML MOUTHWASH MM SCH (08:42)
[2021-06-02] MEDS: Lactobacillus 1 EACH CAP.SPRINK PO SCH (08:42)
[2021-06-02] MEDS: Multivit/Ca/Min/Fe/FA 1 TAB TABLET PO SCH (08:42)
[2021-06-02] MEDS: Acetaminophen 325 MG TABLET PO PRN (08:45)
[2021-06-02 10:29] VITALS: BP 127/83; PULSE 81; TEMP 98.7
[2021-06-03 11:25] LABS: Mycoplasma pneumoniae IgG 0.08 U/L (<=0.09)
== END 2021-06-02 16:05 | disposition home or self-care (01) | DRG 193 ==
LOC: 3BNU → SUATTDRO 21:02
PROVIDERS: ADMIT Internal Medicine; ATTEND Internal Medicine